=== PATIENT | female | born 1945 | race Caucasian/White ===

== ENCOUNTER 2021-12-17 09:07 | Outpatient (CLI) | payer MEDICARE, MEDICAID, SELFPAY ==
--- NOTE | ~2021-12-17 | NM_ITS ---
EXAMINATION: NM drew stress w perfusion DATE: 12/17/2021 11:22 INDICATION: Dyspnea on exertion. TECHNIQUE: Rest images were obtained following intravenous administration of 8.8 mCi Tc99m tetrofosmi n (Myoview). The patient was infused intravenously with Lexiscan (regadenoson). Then, 20.2 mCi Tc99m tetrofosmin (Myoview) was administered intravenously, and stress images were obtained. Data was recon structed into short axis and horizontal and vertical long axis SPECT images. Gated SPECT images were also obtained. COMPARISON: None. FINDINGS: There is no definite reversible or fixed perfusion abnormality to suggest ischemia or infar ction. There is no segmental wall motion abnormality. Left ventricular ejection fraction measures > 70%. IMPRESSION: 1. No definite ischemia or infarct. 2. Normal left ventricular ejection fraction measuring >70%. Reviewed, dictated and finalized at location A. [employer]
--- NOTE | 2021-12-17 09:12 | EST_ITS ---
Patient Info Name: Stefani Ferrara Age: 76 years : 1945 Gender: Female Ht: 65 in Wt: 200 lbs BSA: 2.07 m2 HR: 88 bpm BP: 180 / 95 mmHg Heart Rhythm: Sinus Rhythm Exam Date: 12/17/2021 10:16 AM Exam Location: [facility] Stress Patient Status: Outpatient Admit Date: 12/17/2021 Staff Ordering Physician: Rik Pradhan DO Attending Provider: Rik Pradhan DO Exercise Technologist: Deyanira Valente CT Exercise Physician: Rik Pradhan DO Exam Type: CA stress drew w NM Study Info Indications R06.09 - Other forms of dyspnea A regadenoson stress test was performed. Summary 1. 1. Negative lexiscan stress test for ischemic ST changes by ECG criteria. 2. 2. Baseline hypertension. 3. 3. Nuclear scan to follow and will be reported separately. Please correlate with it. 4. 4. Patient informed of the above results. Protocol: Lexiscan Stress ECG Details Stage: REST Duration (min): 1 min : 34 sec HR (bpm): 89 SBP (mmHg): 156 DBP (mmHg): 106 Stage: REST Duration (min): 9 min : 48 sec HR (bpm): 89 SBP (mmHg): 180 DBP (mmHg): 95 Stage: REST Duration (min): 13 min : 32 sec HR (bpm): 90 SBP (mmHg): 179 DBP (mmHg): 93 Stage: STAGE 1 Duration (min): 0 min : 59 sec HR (bpm): 110 SBP (mmHg): 179 DBP (mmHg): 93 Stage: RECOVERY Duration (min): 1 min : 0 sec HR (bpm): 111 SBP (mmHg): 179 DBP (mmHg): 93 Stage: RECOVERY Duration (min): 1 min : 25 sec HR (bpm): 113 SBP (mmHg): 192 DBP (mmHg): 108 Rest HR: 90 bpm Peak HR: 114 bpm Rest Sys BP: 179 mmHg Peak Sys BP: 192 mmHg Max Pred HR: 142 bpm % Max Pred HR: 80 % Target HR: 121 bpm Max RPP: 21,888 bpm*mmHg Termination Reason: Completed protocol Cardiac Symptoms: None Total Time: 1 min : 0 sec Rest White BP: 93 mmHg Peak White BP: 108 mmHg Total Dose: 0.4 mg Resting ECG Sinus rhythm, IVCD, delayed precordial R/S transition. Stress ECG No ST changes. Arrhythmias None. Report Signatures
== END 2021-12-17 09:08 | disposition home or self-care (01) ==
LOC: ANHCARD 09:08
PROVIDERS: PCP Nurse Practitioner Family; Visit Provider Internal Medicine Cardiovascular Disease
DX: R06.00 Dyspnea, unspecified (principal); I10 Essential (primary) hypertension
CPT/HCPCS: 78452; 93017; A9502; J2785

== ENCOUNTER 2022-12-05 11:47 | Outpatient (CLI) | payer MEDICARE, MEDICAID, SELFPAY ==
[2022-12-05 18:41] LABS: Basophils Percent Auto 0.4 % (0.2-1.2); Eosinophils Absolute Auto 0.2 K/mm3 (0-0.3); Eosinophils Percent Auto 1.7 % (0-4.4); Hematocrit 52.2 % (37.0-47.0); Hemoglobin 17.1 g/dL (12.0-15.0); Immature Granulocyte Absolute 0.02 K/mm3 (0.00-0.031); Immature Granulocyte Percent A 0.2 % (0-0.5); Lymphocytes Absolute Auto 1.87 K/mm3 (0.9-3.2); Lymphocytes Percent Auto 20.6 % (18.3-44.2); Mean Corpuscular HGB Conc 32.8 g/dl (32-36); Mean Corpuscular Hemoglobin 29.6 pg (26-34); Mean Corpuscular Volume 90.5 fl (80-100); Mean Platelet Volume 9.6 fl (7.4-10.4); Monocytes Absolute Auto 0.4 K/mm3 (0.1-0.6); Monocytes Percent Auto 4.7 % (2.6-8.5); Neutrophils Absolute Auto 6.6 K/mm3 (1.3-6.7); Neutrophils Percent Auto 72.4 % (45.5-73.1); Platelet Count Result 195 k/mm3 (150-375); Red Blood Count 5.77 M/mm3 (4.2-5.4); Red Cell Distribution Width 13.8 % (11.5-14.5); White Blood Count 9.1 K/mm3 (4.5-10.0)
[2022-12-05 19:46] LABS: Alanine Aminotransferase 28 U/L (6-35); Albumin Level 4.4 g/dL (3.5-5.1); Alkaline Phosphatase 117 U/L (38-126); Anion Gap 5 mmol/L (8-16); Aspartate Amino Transferase 27 U/L (14-36); Bilirubin,Total 1.6 mg/dL (0.2-1.3); Blood Urea Nitrogen 19 mg/dL (7-17); Calcium 10.1 mg/dL (8.4-10.2); Carbon Dioxide 30 mmol/L (22-30); Chloride 98 mmol/L (98-107); Cholesterol 158 mg/dL (0-200); Estimated Glomerular Filt Rate 48; Glucose 91 mg/dL (65-110); HDL Direct 45 mg/dL; Potassium 3.7 mmol/L (3.4-5.0); Sodium 133 mmol/L (137-145); Triglycerides 114 mg/dL (<150)
[2022-12-05 19:57] LABS: LDL Cholesterol Direct 73 mg/dL
[2022-12-05 21:56] LABS: Hemoglobin A1C 5.7 % (<5.7)
== END 2022-12-05 11:48 | disposition home or self-care (01) ==
LOC: ANHGOSHLAB 11:49
PROVIDERS: PCP Nurse Practitioner; Visit Provider Nurse Practitioner Family
DX: E78.5 Hyperlipidemia, unspecified (principal); I10 Essential (primary) hypertension; R73.03 Prediabetes; R53.83 Other fatigue
CPT/HCPCS: 36415; 80053; 80061; 83036; 84443; 85025

== ENCOUNTER 2022-12-20 12:31 | Outpatient (CLI) | payer MEDICARE, MEDICAID, SELFPAY ==
--- NOTE | ~2022-12-20 | CT_ITS ---
EXAMINATION: CT soft tissue neck w con DATE: 12/20/2022 13:14 INDICATION: Basal cell carcinoma of scalp and neck. TECHNIQUE: Computed tomography (CT) of the neck was performed with 75 mL Omnipaque-350 intravenous co ntrast. Automated exposure control and iterative reconstruction technique were employed. The dose-annette gth product was 396.09 mGy-cm. COMPARISON: Skull radiographs 03/10/2010, brain MRI 05/03/2018 FINDINGS: There are likely changes of left ocular lens replacement surgery. There is an implant anter ior to the right ocular globe that may be in the eyelid. There are changes of right posterior craniot junie. There are no pathologically enlarged lymph nodes. There is severe fatty atrophy of the tongue on the right. There is mild mucosal thickening in the ethmoid sinuses. The mastoid air cells are normal . There is severe cervical spondylosis. IMPRESSION: 1. No evidence of metastatic disease. Reviewed, dictated and finalized at location A. 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
--- NOTE | ~2022-12-20 | CT_ITS ---
EXAMINATION: CT brain wo/w con DATE: 12/20/2022 13:14 INDICATION: Basal cell carcinoma of scalp and neck TECHNIQUE: Computed tomography (CT) of the head was performed without and subsequently with 75 CC Omn ipaque 350 intravenous contrast. The mA was adjusted according to patient size. Iterative reconstruct ion technique was employed. Exam dose: 1210.66 mGy-cm total exam DLP. COMPARISON: 05/03/2018 MRI brain/brainstem FINDINGS: Bilateral carotid siphon internal carotid artery calcifications. Chronic right basal ganglia lacunar infarct. There is nonspecific diminished attenuation of the cereb ral white matter, likely due to chronic small vessel ischemic changes. There is cerebellar and central and cortical cerebral atrophy. No intracranial mass lesion or hemorrh age. No midline shift or mass effect. No subdural or epidural hematoma is detected. There is a probable surgical defect in the posterior right lateral occipital bone. No fracture or bone destruction of the cranial vault is noted. Included paranasal sinuses and the mastoid air cells are well aerated. There is considerable streak artifact from right orbital area; recommend clinical correlation. IMPRESSION: Surgical defect in the posterolateral right occipital bone Cerebral atherosclerosis and chronic small vessel ischemic changes of the cerebral white matter, relationship management lead julia right basal ganglia lacunar infarct Cerebellar and central and cortical cerebral atrophy Reviewed, dictated and finalized at Location A. Reviewed, dictated and finalized at location L. [employer] IMPRESSION: Surgical defect in the posterolateral right occipital bone Cerebral atherosclerosis and chronic small vessel ischemic changes of the cereb ral white matter, chronic right basal ganglia lacunar infarct Cerebellar and central and cortical cerebral atrophy
== END 2022-12-20 12:32 | disposition home or self-care (01) ==
LOC: ANHIMG 12:33
PROVIDERS: PCP Nurse Practitioner
DX: C44.41 Basal cell carcinoma of skin of scalp and neck (principal); I67.2 Cerebral atherosclerosis
CPT/HCPCS: 70470; 70491; Q9967

== ENCOUNTER 2023-01-18 13:25 | Outpatient (CLI) | payer MEDICARE, MEDICAID, SELFPAY ==
--- NOTE | ~2023-01-18 | CT_ITS ---
EXAMINATION: CT brain w con DATE: 01/18/2023 13:56 INDICATION: Basal cell carcinoma of the scalp. TECHNIQUE: Computed tomography (CT) of the head was performed with 100 mL Omnipaque 350 intravenous c ontrast. The mA was adjusted according to patient size. Iterative reconstruction technique was employ ed. The dose-length product was 605.33 mGy-cm. COMPARISON: Head CT 12/20/2022, brain MRI 05/03/2018 FINDINGS: There are scattered areas of low attenuation in the cerebral white matter. There is no intr acranial hemorrhage, acute infarction, or abnormal intracranial mass lesion. There is old lacunar inf arct in the right basal ganglia. There is a small old infarct in left parietal lobe. There is chronic encephalomalacia in lateral aspect of right cerebellum with overlying craniotomy. The ventricles are normal in size. There are likely changes of ocular lens replacement surgeries. There is a radiopaque foreign body anterior to the right ocular globe. There is skin thickening at the right superior scal p. IMPRESSION: 1. Skin thickening at the right superior scalp, which may be the patient's basal cell carcinoma. No s kull involvement. 2. Old infarcts in the right basal ganglia and left parietal lobe. 3. Chronic encephalomalacia in lateral right cerebellum. 4. Extensive nonspecific cerebral white matter disease, which likely represents chronic small vessel ischemic disease. Reviewed, dictated and finalized at location A. IMPRESSION: 1. Skin thickening at the right superior scalp, which may be the patient's basa l cell carcinoma. No skull involvement. 2. Old infarcts in the right basal ganglia and left parietal lobe. 3. Chronic encephalomalacia in lateral right cerebellum. 4. Extensive nonspecific cerebral white matter disease, which likely represents chronic small vessel ischemic disease.
[2023-01-18 13:47] LABS: Estimated Glomerular Filt Rate 48
== END 2023-01-18 13:26 | disposition home or self-care (01) ==
LOC: ANHIMG 13:25
PROVIDERS: PCP Nurse Practitioner; Visit Provider Otolaryngology
DX: C44.41 Basal cell carcinoma of skin of scalp and neck (principal); R93.0 Abnormal findings on diagnostic imaging of skull and head, not elsewhere classified
CPT/HCPCS: 70460; Q9967

== ENCOUNTER 2023-04-06 14:52 | Outpatient (CLI) | payer MEDICARE, MEDICAID, SELFPAY ==
[2023-04-06 15:19] LABS: Basophils Percent Auto 0.4 % (0.2-1.2); Eosinophils Absolute Auto 0.1 K/mm3 (0-0.3); Hemoglobin 17.1 g/dL (12.0-15.0); Immature Granulocyte Absolute 0.02 K/mm3 (0.00-0.031); Immature Granulocyte Percent A 0.2 % (0-0.5); Lymphocytes Absolute Auto 1.24 K/mm3 (0.9-3.2); Mean Corpuscular HGB Conc 32.9 g/dl (32-36); Mean Corpuscular Volume 88.3 fl (80-100); Monocytes Absolute Auto 0.5 K/mm3 (0.1-0.6); Monocytes Percent Auto 5.4 % (2.6-8.5); Neutrophils Absolute Auto 6.5 K/mm3 (1.3-6.7); Platelet Count Result 167 k/mm3 (150-375); Red Blood Count 5.89 M/mm3 (4.2-5.4); Red Cell Distribution Width 13.4 % (11.5-14.5); White Blood Count 8.3 K/mm3 (4.5-10.0)
[2023-04-06 16:25] LABS: Alanine Aminotransferase 22 U/L (6-35); Albumin Level 4.6 g/dL (3.5-5.1); Alkaline Phosphatase 144 U/L (38-126); Anion Gap 8 mmol/L (8-16); Aspartate Amino Transferase 23 U/L (14-36); Bilirubin,Total 1.8 mg/dL (0.2-1.3); Blood Urea Nitrogen 14 mg/dL (7-17); Carbon Dioxide 26 mmol/L (22-30); Chloride 105 mmol/L (98-107); Estimated Glomerular Filt Rate > 60; Glucose 113 mg/dL (65-110); Potassium 3.9 mmol/L (3.4-5.0); Sodium 139 mmol/L (137-145)
[2023-04-09 10:47] LABS: Erythropoietin (EPO) 10.5 mIU/mL (2.6-18.5)
== END 2023-04-06 14:53 | disposition home or self-care (01) ==
LOC: ANHLAB 14:54
PROVIDERS: PCP Family Medicine; Visit Provider Internal Medicine Hematology & Oncology
DX: D75.1 Secondary polycythemia (principal)
CPT/HCPCS: 36415; 80053; 82668; 85025

== ENCOUNTER 2023-07-14 11:46 | Outpatient (CLI) | payer MEDICARE, MEDICAID, SELFPAY ==
[2023-07-14 16:47] LABS: Basophils Percent Auto 0.5 % (0.2-1.2); Eosinophils Absolute Auto 0.1 K/mm3 (0-0.3); Eosinophils Percent Auto 1.7 % (0-4.4); Hematocrit 54.8 % (37.0-47.0); Hemoglobin 17.6 g/dL (12.0-15.0); Immature Granulocyte Absolute 0.01 K/mm3 (0.00-0.031); Immature Granulocyte Percent A 0.2 % (0-0.5); Lymphocytes Absolute Auto 1.31 K/mm3 (0.9-3.2); Lymphocytes Percent Auto 20.2 % (18.3-44.2); Mean Corpuscular HGB Conc 32.1 g/dl (32-36); Mean Corpuscular Hemoglobin 28.9 pg (26-34); Mean Platelet Volume 10.4 fl (7.4-10.4); Monocytes Absolute Auto 0.5 K/mm3 (0.1-0.6); Monocytes Percent Auto 6.9 % (2.6-8.5); Neutrophils Absolute Auto 4.6 K/mm3 (1.3-6.7); Neutrophils Percent Auto 70.5 % (45.5-73.1); Platelet Count Result 162 k/mm3 (150-375); Red Blood Count 6.09 M/mm3 (4.2-5.4); Red Cell Distribution Width 13.2 % (11.5-14.5); White Blood Count 6.5 K/mm3 (4.5-10.0)
[2023-07-14 20:05] LABS: Alanine Aminotransferase 26 U/L (6-35); Albumin Level 4.6 g/dL (3.5-5.1); Alkaline Phosphatase 128 U/L (38-126); Anion Gap 8 mmol/L (8-16); Aspartate Amino Transferase 30 U/L (14-36); Bilirubin,Total 1.2 mg/dL (0.2-1.3); Blood Urea Nitrogen 21 mg/dL (7-17); Calcium 10.2 mg/dL (8.4-10.2); Carbon Dioxide 26 mmol/L (22-30); Chloride 104 mmol/L (98-107); Creatine Kinase 39 U/L (30-135); Estimated Glomerular Filt Rate 60; Glucose 114 mg/dL (65-110); Magnesium 2.4 mg/dL (1.6-2.3); Potassium 3.9 mmol/L (3.4-5.0); Sodium 138 mmol/L (137-145)
== END 2023-07-14 11:47 | disposition home or self-care (01) ==
PROVIDERS: PCP Family Medicine; Visit Provider Nurse Practitioner Family
DX: M79.10 Myalgia, unspecified site (principal); I10 Essential (primary) hypertension; M79.669 Pain in unspecified lower leg
CPT/HCPCS: 36415; 80053; 82550; 83735; 85025

== ENCOUNTER 2024-04-23 12:32 | Outpatient (CLI) | payer MEDICARE, SELFPAY ==
[2024-04-23 19:28] LABS: Basophils Percent Auto 0.5 % (0.2-1.2); Eosinophils Absolute Auto 0.1 K/mm3 (0-0.3); Eosinophils Percent Auto 1.4 % (0-4.4); Hematocrit 54.3 % (37.0-47.0); Hemoglobin 17.7 g/dL (12.0-15.0); Immature Granulocyte Absolute 0.01 K/mm3 (0.00-0.031); Immature Granulocyte Percent A 0.1 % (0-0.5); Lymphocytes Absolute Auto 1.44 K/mm3 (0.9-3.2); Lymphocytes Percent Auto 19.5 % (18.3-44.2); Mean Corpuscular HGB Conc 32.6 g/dl (32-36); Mean Corpuscular Hemoglobin 29.3 pg (26-34); Mean Corpuscular Volume 89.8 fl (80-100); Mean Platelet Volume 10.3 fl (7.4-10.4); Monocytes Absolute Auto 0.5 K/mm3 (0.1-0.6); Monocytes Percent Auto 6.1 % (2.6-8.5); Neutrophils Absolute Auto 5.4 K/mm3 (1.3-6.7); Neutrophils Percent Auto 72.4 % (45.5-73.1); Platelet Count Result 164 k/mm3 (150-375); Red Blood Count 6.05 M/mm3 (4.2-5.4); Red Cell Distribution Width 13.9 % (11.5-14.5); White Blood Count 7.4 K/mm3 (4.5-10.0)
[2024-04-23 19:35] LABS: Alanine Aminotransferase 18 U/L (6-35); Albumin Level 4.5 g/dL (3.5-5.1); Alkaline Phosphatase 160 U/L (38-126); Anion Gap 9 mmol/L (4-12); Aspartate Amino Transferase 29 U/L (14-36); Bilirubin,Total 1.2 mg/dL (0.2-1.3); Blood Urea Nitrogen 14 mg/dL (7-17); Carbon Dioxide 30 mmol/L (22-30); Chloride 102 mmol/L (98-107); Creatine Kinase 44 U/L (30-135); Estimated Glomerular Filt Rate 60; Glucose 120 mg/dL (65-110); Sodium 141 mmol/L (137-145)
[2024-04-23 20:31] LABS: Erythrocyte Sedimentation Rate 15 mm/hr (0-20)
[2024-04-23 20:40] LABS: Folic Acid 3.2 ng/mL (2.76->20)
== END 2024-04-23 12:33 | disposition home or self-care (01) ==
PROVIDERS: PCP Internal Medicine; Visit Provider Internal Medicine
DX: D58.2 Other hemoglobinopathies (principal); I10 Essential (primary) hypertension; R26.81 Unsteadiness on feet; R26.89 Other abnormalities of gait and mobility; R73.03 Prediabetes; M62.81 Muscle weakness (generalized); M79.673 Pain in unspecified foot
CPT/HCPCS: 36415; 80053; 82550; 82607; 82746; 83036; 84443; 85025; 85652

== ENCOUNTER 2024-04-25 10:13 | Outpatient (NON) | payer MEDICARE, SELFPAY ==
[2024-04-25 20:22] LABS: Appearance Urine Turbid (Clear); Bacteria Urine 4+ /hpf; Bilirubin Urine Negative (Negative); Blood Urine Negative (Negative); Calcium Oxalate Crystals Urine Present /hpf; Color Urine Yellow (Yellow); Glucose Urine UA Negative (Negative); Ketones Urine Negative (Negative); Leukocyte Esterase Ur 3+ LEU/UL (Negative); Mucus Urine Present /lpf; Need Manual Microscopic Reviewed; Nitrate Urine Negative (Negative); Protein Urine Negative (Negative); RBC Urine 0-2 /hpf (0-2); Specific Grav Ur 1.012 (1.001-1.035); Squamous Epithelial Cell Urine Moderate /hpf (Few); Uric Acid Crystals Urine Present /hpf; pH Urine 8.5 (5.0-9.0)
[2024-04-25 20:23] LABS: Add Urine Microscopic? YES
== END 2024-04-25 10:14 | disposition home or self-care (01) ==
LOC: ANHGOSHLAB 10:15
PROVIDERS: PCP Internal Medicine; Visit Provider Internal Medicine
DX: R73.03 Prediabetes (principal); D58.2 Other hemoglobinopathies; R26.89 Other abnormalities of gait and mobility; I10 Essential (primary) hypertension; R26.81 Unsteadiness on feet
CPT/HCPCS: 81001

== ENCOUNTER 2024-09-18 14:14 | Observation (INO) | payer MEDICARE, SELFPAY ==
--- NOTE | ~2024-09-18 | CT_ITS ---
CT brain wo con Ordering provider: Princess Cohen PA-C History: 79 years Female with . falls, weakness . Comparison: January 18, 2023 Technique: CT of the head without contrast. Radiation reduction technique utilized. The dose-length p roduct was 681 mGy-cm. FINDINGS: BRAIN PARENCHYMA AND CSF SPACES: Mild leukoaraiosis and diffuse cortical atrophy. Mild atheromatous d isease. Ventricular dilatation. Small lacunar infarct in the right basal ganglia. Simple malacia in t he right cerebellar area No midline shift, mass effect or hemorrhage. The brain parenchyma and CSF s paces are otherwise normal. VISUALIZED PARANASAL SINUSES: Well aerated. MASTOIDS: Well aerated. BONES: Postoperative changes in the right occipital bone otherwise, The bones appear intact. Slight t hickening of the skull bones. SOFT TISSUES: Visualized nasopharynx is normal. Superficial soft tissues are normal. Metallic object is seen anterior to the right orbit. IMPRESSION: No acute intracranial findings. Reviewed, dictated and finalized at location A. [employer]
--- NOTE | ~2024-09-18 | CT_ITS ---
CT chest abdomen pelvis wo con Ordering provider: Princess Cohen PA-C History: . falls, L rib/abd pain . Comparison: None. Technique: CT chest without IV contrast. CT abdomen and pelvis without oral and IV contrast. Radiation reduction technique utilized. The dose-length product was 1383.52 mGy-cm. FINDINGS: The study is limited due to lack of IV contrast. CHEST: --VISUALIZED THORACIC INLET: Trace of pericardial effusion. Right Breast implant collapsed. --MEDIASTINUM: Aorta/coronary arteries: Mild atheromatous disease. Heart/other: The heart is slightly enlarged. Lymph nodes: No mediastinal or hilar adenopathy. --LUNGS: Focal density is seen in the left upper lobe measuring 1.8 x 1 cm which may be a nodule or f ocal pneumonia. Follow-up advised. C3 No pulmonary masses. No pneumothorax. Opacification the left lo wer lobe suggestive of atelectasis versus pneumonia with minimal pleural effusion. Underlying fibroti c changes. --MUSCULOSKELETAL: Soft tissues: The superficial soft tissues are normal. Bones: Age appropriate degenerative changes of the spine. ABDOMEN/PELVIS: --MUSCULOSKELETAL: Bones: Age appropriate degenerative changes of the spine. Superficial soft tissues: The superficial soft tissues are normal. --UPPER ABDOMINAL ORGANS: Liver: Hepatomegaly. Gallbladder: Cholelithiasis. Spleen: Normal. Stomach/duodenum: Small sliding hiatus hernia. Pancreas: Normal. Adrenals: Normal. Kidneys: Small hypodensity in the left kidney lower pole suggestive of a cyst. Small hypodensity in t he right kidney upper pole suggestive of a cyst. Ultrasound evaluation advised. --PELVIC ORGANS: The bladder is underfilled.. No bladder stones. --BOWEL AND MESENTERY: Colon: No evidence of diverticulitis.. No evidence of appendicitis. Small Bowel: Normal. No obstruction. Peritoneum/mesentery: No free air or free fluid. No mesenteric lymphadenopathy. Panniculitis is seen in the mid abdomen. --RETROPERITONEUM: Mild atheromatous disease of the abdominal aorta. No retroperitoneal lymphadenop athy. IMPRESSION: CHEST: 1. Cardiomegaly with pericardial effusion 2. Left basilar atelectasis versus pneumonia with minimal pleural effusion. 3. Focal density in the left upper lobe which may be a nodule or focal pneumonia. Follow-up advised. Three-month CT follow-up advised. ABDOMEN/PELVIS: 1. No evidence of appendicitis, colitis or intestinal obstruction. 2. Cholelithiasis. 3. Small sliding hiatus hernia. 4. Hepatomegaly Reviewed, dictated and finalized at location A. [employer] IMPRESSION: CHEST: 1. Cardiomegaly with pericardial effusion 2. Left basilar atelectasis versus pneumonia with minimal pleural effusion. 3. Focal density in the left upper lobe which may be a nodule or focal pneumon ia. Follow-up advised. Three-month CT follow-up advised. ABDOMEN/PELVIS: 1. No evidence of appendicitis, colitis or intestinal obstruction. 2. Cholelithiasis. 3. Small sliding hiatus hernia. 4. Hepatomegaly
[2024-09-18 14:19] VITALS: BP 171/70; PULSE 83; RESP 16; TEMP 36.5; O2SAT 97
--- NOTE | 2024-09-18 15:39 | ED_ITS ---
HPI - General Adult General Chief complaint: Weakness <Princess Cohen PA-C - Last Filed: 09/18/24 15:51> Stated complaint: weakness, flank pain <Princess Cohen PA-C - Last Filed: 09/18/24 15:51> Time Seen by Provider: 09/18/24 15:40 <Princess Cohen PA-C - Last Filed: 09/18/24 15:51> Focused HPI: Patient is an 79 y/o female who presents to the ED from home with report of weakness and fall. Patient lives at home alone. Reports she has been feeling increasingly weak over the past 1 week. Denies focal weakness. Reports lack of strength. Reports having pain in her L side/L sided ribs/abd over the past 1.5 weeks. Has been trying Tylenol and heating pad w/o improvement. Then had a fall in the bathroom today and prompted here for further evaluation. Denied HI/LOC. Son also reports patient has not eaten since Monday and expresses concern that patient may need NH/rehab placement. Son reports chronic R sided face droop/partial paralysis r/t previous brain tumor. GENERAL: Elderly, somewhat frail, and in no acute distress. HEAD: Normocephalic, atraumatic. CHEST: Clear to auscultation. ?No respiratory distress. HEART: Regular rate and rhythm.? MSK: TTP along posterior lateral L rib cage. NEURO: ?Alert and oriented x3. Patient screened in triage and initial orders placed.? ?Additional care and disposition to be based upon?diagnostic testing and treatment. <Princess Cohen PA-C - Last Filed: 09/18/24 15:51> Source: patient and family <Princess Cohen PA-C - Last Filed: 09/18/24 15:51> Mode of arrival: wheelchair <Princess Cohen PA-C - Last Filed: 09/18/24 15:51> Limitations: no limitations <Princess Cohen PA-C - Last Filed: 09/18/24 15:51> History of Present Illness HPI narrative: I agree with the HPI as documented in the medical screening exam <Francisco Martinez MD - Last Filed: 12/05/24 00:14> Related Data Home medications: Home Medications Medication Instructions Recorded Confirmed aspirin 81 mg tablet 81 mg PO DAILY 07/14/23 07/01/24 <ROSEANN Hammonds Last Filed: 09/18/24 15:51> Allergies/adverse reactions: Allergies Allergy/AdvReac Type Severity Reaction Status Date / Time vancomycin Allergy Severe pt turned Verified 08/26/24 14:59 purple on the operating table <ROSEANN Hammonds Last Filed: 09/18/24 15:51> Review of Systems Review of Systems: All systems reviewed & are unremarkable except as noted in HPI and below <Francisco Martinez MD - Last Filed: 09/19/24 00:14> [facility] Past Medical History Medical History: Medical History Bilateral lower extremity edema Cataract Essential (primary) hypertension Fatigue First degree heart block (~09/2021) Heavy sensation of lower extremity History of right breast cancer (~2013) Hyperlipidemia Muscle pain Prediabetes Stress incontinence <Princess Cohen PA-C - Last Filed: 09/18/24 15:51> Surgical History Surgical History: Surgical History History of appendectomy History of cataract removal with insertion of prosthetic lens (~03/2014) History of mastectomy right History of tonsillectomy Hx of craniotomy (~04/1999) 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 <Princess Cohen PA-C - Last Filed: 09/18/24 15:51> Family History Family History: Family History Other Family history of heart disease in male family member before age 55 <ROSEANN Hammonds Last Filed: 09/18/24 15:51> Social History Social History: Social History Social History: Caffeine-tea/soda Smoking status: Never smoker Second hand tobacco smoke exposure: No Alcohol intake: never Substance use: never Substance use type: does not use Do You Feel Safe in your Home?: Yes Lack of Transportation: YES Lack of Food: Often True Current Housing: I Have Housing Concerned About Future Housing: No Difficulty Paying Gas/Electric Bills: YES Difficulty Paying for Meds: No Currently Unemployed: No Education: High School Diploma/GED Difficulty w/ Childcare or Family Care: No Spiritual care concerns: No <Princess Cohen PA-C - Last Filed: 09/18/24 15:51> Exam Narrative: (I agree with the exam is documented in the medical screening exam with the following additions) GENERAL: Well-developed, well-nourished, and in no acute distress. HEAD: Normocephalic, atraumatic. EYES: PERRLA and EOMI. NECK: Supple. No midline spine tenderness to palpation, step-off or crepitus CHEST: Clear to auscultation. No respiratory distress. No wheezes rales or rhonchi. Tender to palpation in the left mid axillary line without step-off or crepitus HEART: Regular rate and rhythm. No murmur heard. Normal peripheral pulses. ABDOMEN: Soft, nontender, nondistended, normal active bowel sounds. EXTREMITIES: Normal range of motion. No edema. SKIN: Warm, dry, no rash. NEURO: Alert and oriented x3. No focal deficit. Moving all 4 limbs spontaneously PSYCH: Normal mood and affect. <Francisco Martinez MD - Last Filed: 09/19/24 00:14> Course Course Emergency Course: 19:23 - CBC demonstrates white blood cell count elevation of 14.0 with hemoglobin of 16 and normal platelets. Chemistries demonstrate hypercalcemia hypermagnesemia but is otherwise unremarkable including a normal creatinine. Troponin negative. CT chest abdomen pelvis demonstrates Focal density in the left upper lobe which may be a nodule or focal pneumonia with mild left pleural effusion. Head CT negative for acute intracranial process. EKG not concerning for ischemia. I suspect Pneumonia is the cause of the patient's symptoms. Will start the patient on Rocephin and doxycycline. I discussed the patient with hospitalist, GIAN Borrero who accepts admission. <Francisco Mratinez MD - Last Filed: 09/19/24 00:14> Vital Signs Vital signs: Vital Signs Temperature 97.7 F 09/18/24 14:19 Pulse Rate 83 09/18/24 14:19 Respiratory Rate 16 09/18/24 14:19 Blood Pressure 171/70 H 09/18/24 14:19 Pulse Oximetry 97 09/18/24 14:19 Temperature 97.8 F 09/18/24 21:35 Pulse Rate 89 09/18/24 21:35 Respiratory Rate 18 09/18/24 21:35 Blood Pressure 149/62 H 09/18/24 21:35 Pulse Oximetry 96 09/18/24 21:35 <Princess Cohen PA-C - Last Filed: 09/18/24 15:51> Vital Signs Temperature 97.7 F 09/18/24 14:19 Pulse Rate 83 09/18/24 14:19 Respiratory Rate 16 09/18/24 14:19 Blood Pressure 171/70 H 09/18/24 14:19 Pulse Oximetry 97 09/18/24 14:19 Temperature 97.8 F 09/18/24 21:35 Pulse Rate 89 09/18/24 21:35 Respiratory Rate 18 09/18/24 21:35 Blood Pressure 149/62 H 09/18/24 21:35 Pulse Oximetry 96 09/18/24 21:35 <Francisco Martinez MD - Last Filed: 09/19/24 00:14> Medical Decision Making MDM Narrative Medical decision making narrative: MSE by ROZ in triage. <Princess Cohen PA-C - Last Filed: 09/18/24 15:51> MSE by ROZ in triage. Plan: Imaging, labs, EKG, troponin, reassess <Francisco Martinez MD - Last Filed: 09/19/24 00:14> Differential Diagnosis Differential Diagnosis: pneumonia, pneumothorax, ACS, metabolic abnormality, UTI, intracranial hemorrhage, other <Francisco Martinez MD - Last Filed: 09/19/24 00:14> Vital Signs Vital Signs: Vital Signs Temperature 97.7 F 09/18/24 14:19 Pulse Rate 83 09/18/24 14:19 Respiratory Rate 16 09/18/24 14:19 Blood Pressure 171/70 H 09/18/24 14:19 Pulse Oximetry 97 09/18/24 14:19 Temperature 97.8 F 09/18/24 21:35 Pulse Rate 89 09/18/24 21:35 Respiratory Rate 18 09/18/24 21:35 Blood Pressure 149/62 H 09/18/24 21:35 Pulse Oximetry 96 09/18/24 21:35 <Princess Cohen PA-C - Last Filed: 09/18/24 15:51> Vital Signs Temperature 97.7 F 09/18/24 14:19 Pulse Rate 83 09/18/24 14:19 Respiratory Rate 16 09/18/24 14:19 Blood Pressure 171/70 H 09/18/24 14:19 Pulse Oximetry 97 09/18/24 14:19 Temperature 97.8 F 09/18/24 21:35 Pulse Rate 89 09/18/24 21:35 Respiratory Rate 18 09/18/24 21:35 Blood Pressure 149/62 H 09/18/24 21:35 Pulse Oximetry 96 09/18/24 21:35 <Francisco Martinez MD - Last Filed: 09/19/24 00:14> Lab Data Result diagrams: 09/18/24 15:56 09/18/24 15:56 <Princess Cohen PA-C - Last Filed: 09/18/24 15:51> Labs: Lab Results 09/18/24 Range/Units 15:56 WBC 14.0 H (4.5-10.0) K/mm3 RBC 5.72 H (4.2-5.4) M/mm3 Hgb 16.4 H (12.0-15.0) g/dL Hct 51.4 H (37.0-47.0) % MCV 89.9 (80-100) fl MCH 28.7 (26-34) pg MCHC 31.9 L (32-36) g/dl RDW 14.2 (11.5-14.5) % Plt Count 220 (150-375) k/mm3 MPV 8.9 (7.4-10.4) fl Immature Gran % (Auto) 0.3 (0-0.5) % Neut % (Auto) 88.6 H (45.5-73.1) % Lymph % (Auto) 5.1 L (18.3-44.2) % [place] % (Auto) 5.5 (2.6-8.5) % Eos % (Auto) 0.4 (0-4.4) % Baso % (Auto) 0.1 L (0.2-1.2) % Lymph # (Auto) 0.71 L (0.9-3.2) K/mm3 [place] # (Auto) 0.8 H (0.1-0.6) K/mm3 Eos # (Auto) 0.1 (0-0.3) K/mm3 Baso # (Auto) 0.0 (0.0-0.1) K/mm3 Abs Immat Gran (auto) 0.04 H (0.00-0.031) K/mm3 Absolute Neuts (auto) 12.4 H (1.3-6.7) K/mm3 Absolute Nucleated RBC 0.000 (0.0-0.012) K/mm3 Nucleated RBC % 0.0 (0.0-0.2) % PT 16.3 H (11.1-14.7) Seconds INR 1.3 APTT 33.3 (22.3-36.8) Seconds Sodium 137 (137-145) mmol/L Potassium 4.0 (3.4-5.0) mmol/L Chloride 99 (98-107) mmol/L Carbon Dioxide 32 H (22-30) mmol/L Anion Gap 6 (4-12) mmol/L BUN 27 H D (7-17) mg/dL Creatinine 1.00 (0.7-1.0) mg/dL Estim Creat Clear Calc Not Reportable Estimated GFR 53 L (59 - ) Glucose 128 H (65-110) mg/dL Calcium 10.5 H (8.4-10.2) mg/dL Magnesium 2.5 H (1.6-2.3) mg/dL Total Bilirubin 1.3 (0.2-1.3) mg/dL AST 31 (14-36) U/L ALT 29 (6-35) U/L Alkaline Phosphatase 196 H (38-126) U/L Total Creatine Kinase 48 (30-135) U/L Troponin I < 0.012 (0.000-0.034) ng/mL Total Protein 8.0 (6.3-8.2) g/dL Albumin 4.1 (3.5-5.1) g/dL <ADI HammondsC - Last Filed: 09/18/24 15:51> Lab Results 09/18/24 Range/Units 15:56 WBC 14.0 H (4.5-10.0) K/mm3 RBC 5.72 H (4.2-5.4) M/mm3 Hgb 16.4 H (12.0-15.0) g/dL Hct 51.4 H (37.0-47.0) % MCV 89.9 (80-100) fl MCH 28.7 (26-34) pg MCHC 31.9 L (32-36) g/dl RDW 14.2 (11.5-14.5) % Plt Count 220 (150-375) k/mm3 MPV 8.9 (7.4-10.4) fl Immature Gran % (Auto) 0.3 (0-0.5) % Neut % (Auto) 88.6 H (45.5-73.1) % Lymph % (Auto) 5.1 L (18.3-44.2) % [place] % (Auto) 5.5 (2.6-8.5) % Eos % (Auto) 0.4 (0-4.4) % Baso % (Auto) 0.1 L (0.2-1.2) % Lymph # (Auto) 0.71 L (0.9-3.2) K/mm3 [place] # (Auto) 0.8 H (0.1-0.6) K/mm3 Eos # (Auto) 0.1 (0-0.3) K/mm3 Baso # (Auto) 0.0 (0.0-0.1) K/mm3 Abs Immat Gran (auto) 0.04 H (0.00-0.031) K/mm3 Absolute Neuts (auto) 12.4 H (1.3-6.7) K/mm3 Absolute Nucleated RBC 0.000 (0.0-0.012) K/mm3 Nucleated RBC % 0.0 (0.0-0.2) % PT 16.3 H (11.1-14.7) Seconds INR 1.3 APTT 33.3 (22.3-36.8) Seconds Sodium 137 (137-145) mmol/L Potassium 4.0 (3.4-5.0) mmol/L Chloride 99 (98-107) mmol/L Carbon Dioxide 32 H (22-30) mmol/L Anion Gap 6 (4-12) mmol/L BUN 27 H D (7-17) mg/dL Creatinine 1.00 (0.7-1.0) mg/dL Estim Creat Clear Calc Not Reportable Estimated GFR 53 L (59 - ) Glucose 128 H (65-110) mg/dL Calcium 10.5 H (8.4-10.2) mg/dL Magnesium 2.5 H (1.6-2.3) mg/dL Total Bilirubin 1.3 (0.2-1.3) mg/dL AST 31 (14-36) U/L ALT 29 (6-35) U/L Alkaline Phosphatase 196 H (38-126) U/L Total Creatine Kinase 48 (30-135) U/L Troponin I < 0.012 (0.000-0.034) ng/mL Total Protein 8.0 (6.3-8.2) g/dL Albumin 4.1 (3.5-5.1) g/dL <Francisco Martinez MD - Last Filed: 09/19/24 00:14> ECG Data EKG #1: Attestation: I personally reviewed and interpreted this ECG as follows: <Francisco Martinez MD - Last Filed: 09/19/24 00:14> ECG completion date: 09/18/24 <Francisco Martinez MD - Last Filed: 09/19/24 00:14> ECG completion time: 16:19 <Francisco Martinez MD - Last Filed: 09/19/24 00:14> Prior ECG tracings: available for review <Francisco Martinez MD - Last Filed: 09/19/24 00:14> Interpretation: sinus rhythm, rate 72, left axis deviation, no ST segment elevations or T-wave inversions concerning for ischemia, normal intervals with QTC of 445. Compared to EKG done in 2020, PVCs have resolved <Francisco Martinez MD - Last Filed: 09/19/24 00:14> Discharge Plan Discharge Clinical Impression: Chest wall tenderness, Generalized weakness Pneumonia Qualifiers: Pneumonia type: due to unspecified organism Laterality: left Lung location: upper lobe of lung Qualified Code(s): J18.9 - Pneumonia, unspecified organism <Princess Cohen PA-C - Last Filed: 09/18/24 15:51> Patient Disposition: Still a Patient <Princess Cohen PA-C - Last Filed: 09/18/24 15:51> Condition: Stable <Princess Cohen PA-C - Last Filed: 09/18/24 15:51> Time of Disposition: 19:23 <Princess Cohen PA-C - Last Filed: 09/18/24 15:51> 19:23 <Francisco Martinez MD - Last Filed: 09/19/24 00:14>
--- NOTE | 2024-09-18 15:42 | ECG_ITS ---
Test Date: 2024-09-18 16:19:28 Measurements Intervals Mart Rate: 72 P: 38 RI: 192 QRS: -32 QRSD: 116 T: 52 QT: 404 QTc: 445 Interpretive Statements SINUS RHYTHM MARKED LEFT AXIS DEVIATION [QRS AXIS < -30] PATTERN CONSISTENT WITH PULMONARY DISEASE MODERATE INTRAVENTRICULAR CONDUCTION DELAY [105+ ms QRS DURATION, 80+ ms Q/S IN V1/V2, NO Q AND 60+ ms R IN I/aVL/V5/V6] CANNOT RULE OUT ANTERIOR INFARCTION ABNORMAL ECG Electronically Signed On 09-18-2024 16:45:31 FIN[employer]CIAL SALES MANAGER by Héctor Rankin M.D.
[2024-09-18 16:17] LABS: Basophils Percent Auto 0.1 % (0.2-1.2); Eosinophils Absolute Auto 0.1 K/mm3 (0-0.3); Eosinophils Percent Auto 0.4 % (0-4.4); Hematocrit 51.4 % (37.0-47.0); Hemoglobin 16.4 g/dL (12.0-15.0); Immature Granulocyte Absolute 0.04 K/mm3 (0.00-0.031); Immature Granulocyte Percent A 0.3 % (0-0.5); Lymphocytes Absolute Auto 0.71 K/mm3 (0.9-3.2); Lymphocytes Percent Auto 5.1 % (18.3-44.2); Mean Corpuscular HGB Conc 31.9 g/dl (32-36); Mean Corpuscular Hemoglobin 28.7 pg (26-34); Mean Corpuscular Volume 89.9 fl (80-100); Mean Platelet Volume 8.9 fl (7.4-10.4); Monocytes Absolute Auto 0.8 K/mm3 (0.1-0.6); Monocytes Percent Auto 5.5 % (2.6-8.5); Neutrophils Absolute Auto 12.4 K/mm3 (1.3-6.7); Neutrophils Percent Auto 88.6 % (45.5-73.1); Platelet Count Result 220 k/mm3 (150-375); Red Blood Count 5.72 M/mm3 (4.2-5.4); Red Cell Distribution Width 14.2 % (11.5-14.5)
[2024-09-18 16:27] LABS: INR 1.3; Prothrombin Time 16.3 Seconds (11.1-14.7)
[2024-09-18 16:28] LABS: Alanine Aminotransferase 29 U/L (6-35); Albumin Level 4.1 g/dL (3.5-5.1); Alkaline Phosphatase 196 U/L (38-126); Anion Gap 6 mmol/L (4-12); Aspartate Amino Transferase 31 U/L (14-36); Bilirubin,Total 1.3 mg/dL (0.2-1.3); Blood Urea Nitrogen 27 mg/dL (7-17); Calcium 10.5 mg/dL (8.4-10.2); Carbon Dioxide 32 mmol/L (22-30); Chloride 99 mmol/L (98-107); Creatine Kinase 48 U/L (30-135); Estimated Glomerular Filt Rate 53; Glucose 128 mg/dL (65-110); Magnesium 2.5 mg/dL (1.6-2.3); Partial Thromboplastin Time 33.3 Seconds (22.3-36.8); Sodium 137 mmol/L (137-145)
[2024-09-18 16:41] LABS: Troponin I < 0.012 ng/mL (0.000-0.034)
[2024-09-18 18:00] VITALS: BP 190/83; PULSE 80; RESP 20; O2SAT 100
--- NOTE | 2024-09-18 18:48 | PC.NURSE ---
per Dr Martinez, no blood cultures needed drawn prior to antibiotics.
[2024-09-18] MEDS: DOXYCYCLINE HYCLATE 100 MG TABLET PO (18:55)
[2024-09-18 19:00] VITALS: BP 160/69; PULSE 83; RESP 22; O2SAT 97
[2024-09-18 19:30] VITALS: BP 148/53; PULSE 84; RESP 24; O2SAT 97
--- NOTE | 2024-09-18 19:50 | PC.NURSE ---
This RN attempted to get blood cultures without success. Patient only able to use left arm due to limb restriction on the right side.
--- NOTE | 2024-09-18 19:53 | PM.IMHP ---
H&P: HPI History of Present Illness Date/Time: 09/18/24 19:53 Chief Complaint: Weakness, unable to stand/ambulate, pneumonia Narrative: This is an 79-year-old female patient with history of hypertension, hyperlipidemia, prediabetes and previously resected brain tumor who was admitted to the hospital for generalized weakness as well as left-sided pain that starts in her chest and radiates down to her waist all on the left side. Patient reports that she has not had anything to eat or drink since Monday because she was unable to get of her chair. When she was finally able to get up she ended up falling and had to call her son who called EMS to bring her to the hospital. Patient denies abdominal pain nausea or vomiting. Workup in the emergency department revealed white blood cell count of 14 an increase in her BUN to 27 creatinine of 1.0 and elevated calcium at 10.5 and elevated magnesium at 2.5. Troponin was normal. Head CT showed old small lacunar infarct in the right basal ganglia and encephalomalacia in the right cerebellar area as well as postoperative changes the right occipital bone from tumor resection in 1990. CT scan of the chest abdomen and pelvis without IV contrast shows a nodule or focal pneumonia in the left upper lobe measuring 1.8 x 1 cm, 0 paced occasion of the left lower lobe suggestive of atelectasis versus pneumonia with minimal pleural effusion, cardiomegaly with pericardial effusion, cholelithiasis, small sliding hiatal hernia and hepatomegaly. Patient was started on IV ceftriaxone and oral doxycycline for treatment of pneumonia. Patient is not hypoxic but she is having pain control issues and inability to stand and ambulate independently. PT and OT will be consulted. UA unable to be collected prior to antibiotics. Review of Systems Review of Systems: All systems reviewed & are unremarkable except as noted in HPI and below [facility] Past Medical History Medical History Bilateral lower extremity edema Cataract Essential (primary) hypertension Fatigue First degree heart block (~09/2021) Heavy sensation of lower extremity History of right breast cancer (~2013) Hyperlipidemia Muscle pain Prediabetes Stress incontinence Surgical History Surgical History History of appendectomy History of cataract removal with insertion of prosthetic lens (~03/2014) History of mastectomy right History of tonsillectomy Hx of craniotomy (~04/1999) 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 Family History Family History Other Family history of heart disease in male family member before age 55 Social History Social History Social History: Caffeine-tea/soda Smoking status: Never smoker Second hand tobacco smoke exposure: No Alcohol intake: never Substance use: never Substance use type: does not use Do You Feel Safe in your Home?: Yes Lack of Transportation: YES Lack of Food: Often True Current Housing: I Have Housing Concerned About Future Housing: No Difficulty Paying Gas/Electric Bills: YES Difficulty Paying for Meds: No Currently Unemployed: No Education: High School Diploma/GED Difficulty w/ Childcare or Family Care: No Spiritual care concerns: No Meds Home Medications and Allergies Home Medications Medication Instructions Recorded Confirmed Type losartan 100 1 tablet PO DAILY #90 tabs 12/12/22 07/01/24 Rx mg-hydrochlorothiazide 12.5 mg tablet aspirin 81 mg tablet 81 mg PO DAILY 07/14/23 07/01/24 History hydrochlorothiazide 12.5 mg tablet 12.5 mg PO DAILY #30 tabs 07/01/24 09/18/24 Rx nebivolol 2.5 mg tablet (Bystolic) 2.5 mg PO DAILY #30 tabs 07/30/24 09/18/24 Rx Allergies Allergy/AdvReac Type Severity Reaction Status Date / Time vancomycin Allergy Severe pt turned Verified 08/26/24 14:59 purple on the operating table Vital Signs Vital Signs - 24 hr 09/18/24 14:19 09/18/24 18:00 Temperature 36.5 C Pulse Rate 83 80 Respiratory Rate 16 20 Blood Pressure 171/70 H 190/83 H Pulse Oximetry 97 100 Exam Narrative: GENERAL: Appears slightly older than stated age, obese, deconditioned HEAD: Normocephalic, atraumatic. EYES: PERRLA and EOMI. NECK: Supple. No midline spine tenderness to palpation, step-off or crepitus CHEST: Lungs diminished in the left base both anteriorly and posteriorly. Tender to palpation in the left mid axillary line HEART: Regular rate and rhythm. No murmur heard. Normal peripheral pulses. ABDOMEN: Soft, nontender, nondistended, normal active bowel sounds. EXTREMITIES: Normal range of motion. No edema. SKIN: Warm, dry, no rash. NEURO: Alert and oriented x3. No focal deficit. Moving all 4 limbs spontaneously, generally weak lower extremities PSYCH: Normal mood and affect. H&P: Results Labs Labs: Short CBC 09/18/24 Range/Units 15:56 WBC 14.0 H (4.5-10.0) K/mm3 Hgb 16.4 H (12.0-15.0) g/dL Hct 51.4 H (37.0-47.0) % Plt Count 220 (150-375) k/mm3 BMP 09/18/24 15:56 Sodium 137 Potassium 4.0 Chloride 99 Carbon Dioxide 32 H BUN 27 H D Creatinine 1.00 Glucose 128 H Calcium 10.5 H Cardiac Enzymes 09/18/24 Range/Units 15:56 Total Creatine Kinase 48 (30-135) U/L Troponin I < 0.012 (0.000-0.034) ng/mL Liver Function 09/18/24 Range/Units 15:56 Total Bilirubin 1.3 (0.2-1.3) mg/dL AST 31 (14-36) U/L ALT 29 (6-35) U/L Alkaline Phosphatase 196 H (38-126) U/L Albumin 4.1 (3.5-5.1) g/dL Pulse Oximetry SpO2 results: 96% on room air Interpretation: No need for supplemental oxygenation at this time ECG Attestation: I personally reviewed and interpreted this ECG as follows: ECG completion date: 09/18/24 ECG completion time: 16:19 Prior ECG tracings: not available for review Interpretation: Sinus rhythm rate of 72 MS interval 192 QRS duration 116 QTC 445 QRS axis -32 left axis deviation, ST elevation of lead V3 only Imaging CT scan - head: Radiologist's impression: CT brain wo con Ordering provider: Princess Cohen PA-C History: 79 years Female with . falls, weakness . Comparison: January 18, 2023 Technique: CT of the head without contrast. Radiation reduction technique utilized. The dose-length product was 681 mGy-cm. FINDINGS: BRAIN PARENCHYMA AND CSF SPACES: Mild leukoaraiosis and diffuse cortical atrophy. Mild atheromatous disease. Ventricular dilatation. Small lacunar infarct in the right basal ganglia. Simple malacia in the right cerebellar area No midline shift, mass effect or hemorrhage. The brain parenchyma and CSF spaces are otherwise normal. VISUALIZED PARANASAL SINUSES: Well aerated. MASTOIDS: Well aerated. BONES: Postoperative changes in the right occipital bone otherwise, The bones appear intact. Slight thickening of the skull bones. SOFT TISSUES: Visualized nasopharynx is normal. Superficial soft tissues are normal. Metallic object is seen anterior to the right orbit. IMPRESSION: No acute intracranial findings. Reviewed, dictated and finalized at location A. [employer] CT scan - chest: Radiologist's impression: CT chest abdomen pelvis wo con Ordering provider: Princess Cohen PA-C History: . falls, L rib/abd pain . Comparison: None. Technique: CT chest without IV contrast. CT abdomen and pelvis without oral and IV contrast. Radiation reduction technique utilized. The dose-length product was 1383.52 mGy-cm. FINDINGS: The study is limited due to lack of IV contrast. CHEST: --VISUALIZED THORACIC INLET: Trace of pericardial effusion. Right Breast implant collapsed. --MEDIASTINUM: Aorta/coronary arteries: Mild atheromatous disease. Heart/other: The heart is slightly enlarged. Lymph nodes: No mediastinal or hilar adenopathy. --LUNGS: Focal density is seen in the left upper lobe measuring 1.8 x 1 cm which may be a nodule or focal pneumonia. Follow-up advised. C3 No pulmonary masses. No pneumothorax. Opacification the left lower lobe suggestive of atelectasis versus pneumonia with minimal pleural effusion. Underlying fibrotic changes. --MUSCULOSKELETAL: Soft tissues: The superficial soft tissues are normal. Bones: Age appropriate degenerative changes of the spine. ABDOMEN/PELVIS: --MUSCULOSKELETAL: Bones: Age appropriate degenerative changes of the spine. Superficial soft tissues: The superficial soft tissues are normal. --UPPER ABDOMINAL ORGANS: Liver: Hepatomegaly. Gallbladder: Cholelithiasis. Spleen: Normal. Stomach/duodenum: Small sliding hiatus hernia. Pancreas: Normal. Adrenals: Normal. Kidneys: Small hypodensity in the left kidney lower pole suggestive of a cyst. Small hypodensity in the right kidney upper pole suggestive of a cyst. Ultrasound evaluation advised. --PELVIC ORGANS: The bladder is underfilled.. No bladder stones. --BOWEL AND MESENTERY: Colon: No evidence of diverticulitis.. No evidence of appendicitis. Small Bowel: Normal. No obstruction. Peritoneum/mesentery: No free air or free fluid. No mesenteric lymphadenopathy. Panniculitis is seen in the mid abdomen. --RETROPERITONEUM: Mild atheromatous disease of the abdominal aorta. No retroperitoneal lymphadenopathy. IMPRESSION: CHEST: 1. Cardiomegaly with pericardial effusion 2. Left basilar atelectasis versus pneumonia with minimal pleural effusion. 3. Focal density in the left upper lobe which may be a nodule or focal pneumonia. Follow-up advised. Three-month CT follow-up advised. ABDOMEN/PELVIS: 1. No evidence of appendicitis, colitis or intestinal obstruction. 2. Cholelithiasis. 3. Small sliding hiatus hernia. 4. Hepatomegaly Reviewed, dictated and finalized at location A. [employer] Assessment and Plan Assessment and plan (1) Pneumonia: Qualifiers: Laterality: left Lung location: upper lobe of lung Pneumonia type: due to unspecified organism Qualified Code(s): J18.9 - Pneumonia, unspecified organism Code(s): J18.9 - Pneumonia, unspecified organism Status: Acute Assessment and Plan: -LLL pneumonia as well as focal pneumonia or nodule in left upper lobe--repeat CT in 3 months recommended -Rocephin and doxycycline started in ER -MRSA PCR ordered, Pneumococcal Ag and Legionella Ag ordered -Incentive spirometer and Q6HR Duonebs, encourage cough and deep breathing -Left sided chest/mid axillary pain most likely due to pneumonia (2) Deficit in activities of daily living (ADL): Code(s): Z78.9 - Other specified health status Status: Acute Assessment and Plan: -Patient unable to stand up from chair for 3 days then fell when she was able to get up -History of unsteady gait, likely from remote history of brain tumor removal in 1990 -Deconditioning due to acute illness likely exacerbating condition -PT/OT consulted, patient will likely need SNF vs senior living care (3) Generalized weakness: Code(s): R53.1 - Weakness Status: Acute Assessment and Plan: See above (4) Prediabetes: Code(s): R73.03 - Prediabetes Status: Acute Assessment and Plan: -Hemoglobin A1c 6.1 on admit, was 6.0 in April -Heart Healthy diet, watch daily sugar on metabolic panels (5) Essential (primary) hypertension: Code(s): I10 - Essential (primary) hypertension Status: Chronic Assessment and Plan: -Blood pressure elevated in ER, improved after arrival to the floor -Continue home nebivolol and HCTZ -Echo ordered due to pleural and pericardial effusions noted on imaging, last Echo on file from 2018 -May need goal directed therapy change if EF <40% on Echo. Quality VTE Prophylaxis VTE prophylaxis: pharmacologic ordered (Lovenox) Hospitalist [facility] Advance Care Plan I have confirmed that the patient's Advanced Care Plan is present, code status is documented, or surrogate decision maker is listed in patient medical record.: Yes Medication Reconciliation I have utilized all available resources to obtain, update and review the patients current medications (includes all prescriptions, OTC, herbals, cannabis, and nutritional supplements).: Yes
--- NOTE | 2024-09-18 20:21 | PC.NURSE ---
Phlebotomy at bedside for blood cultures.
[2024-09-18 21:35] VITALS: BP 149/62; PULSE 89; RESP 18; TEMP 36.6; O2SAT 96; BMI 33.0
--- NOTE | 2024-09-18 22:10 | ADMGEN ---
This patient, Stefani Ferrara, was admitted to Medical Room 251-01. Patient/family oriented to hospital policies and general routines including ID bracelet, bed and alarms, visiting hours, pain management, procedures, bathroom and other care routines, personal items, smoking policy, room service/diet, and visiting hours. Information on how to activate the Rapid Response Team has been discussed. Patient/Family are encouraged to report perceived risks to care and to ask questions if they do not understand what they are told or what they should do.
--- NOTE | 2024-09-18 22:10 | PC.NURSE ---
Patient arrived to 2 Medical surgical, vital signs stable. Instructed about fall risk, how to use call light, how to call for help.
[2024-09-19] VITALS (9 sets, daily range): BP systolic 121–171; BP diastolic 57–94; PULSE 80–94; RESP 18–20; TEMP 36.4–36.9; O2SAT 93–100
--- NOTE | 2024-09-19 | ECHO_ITS ---
Patient Info Name: Stefani Ferrara Age: 79 years : 1945 Gender: Female Ht: 65 in Wt: 198 lbs BSA: 2.06 m2 HR: 81 bpm BP: 171 / 72 mmHg Technical Quality: Fair Exam Date: 09/19/2024 11:35 AM Exam Location: Echo Lab Patient Status: Inpatient Admit Date: 09/19/2024 Staff Ordering Physician: Adair Villarreal APRN Wine Steward: Tristen Cook RDCS Attending Provider: Troy Springer MD Referring Physician: Phil ZUÑIGA; Exam Type: CA echo doppler color flow Study Info Indications J90 - Pleural effusion, not elsewhere classified R53.1 - Weakness Complete two-dimensional, color flow and Doppler transthoracic echocardiogram is performed. Summary 1. Complete two-dimensional, color flow and Doppler transthoracic echocardiogram is performed. 2. Left ventricular chamber dimension is normal. 3. Left ventricular systolic function is normal, estimated at 55-60%. 4. The left ventricular diastolic function is grade I diastolic dysfunction. 5. E/e' 15 is elevated. 6. Left atrial chamber dimension is mildly enlarged. 7. There is moderate aortic valve sclerosis. 8. There is mild aortic valve stenosis with a peak velocity of 155 cm/s, mean gradient of 5 mmHg, and aortic valve area of 1.9 cm2. 9. The mitral valve has moderately calcified annulus. 10. There is trace mitral valve regurgitation. 11. No pulmonary hypertension, estimated pulmonary arterial systolic pressure is 28 mmHg. Left Ventricle E/e' 15 is elevated. Left ventricular chamber dimension is normal. Left ventricular systolic function is normal, estimated at 55-60%. The left ventricular diastolic function is grade I diastolic dysfunction. Right Ventricle Right ventricular chamber dimension is normal. Right ventricular systolic function is normal. Left Atria Left atrial chamber dimension is mildly enlarged. Right Atria Right atrial chamber dimension is normal. Aortic Valve The aortic valve is trileaflet. There is moderate aortic valve sclerosis. There is mild aortic valve stenosis with a peak velocity of 155 cm/s, mean gradient of 5 mmHg, and aortic valve area of 1.9 cm2. There is no aortic valve regurgitation. Pulmonic Valve There is no pulmonic regurgitation. Mitral Valve The mitral valve has moderately calcified annulus. There is no mitral valve stenosis. There is trace mitral valve regurgitation. Tricuspid Valve There is no tricuspid valve regurgitation. No pulmonary hypertension, estimated pulmonary arterial systolic pressure is 28 mmHg. Pericardium/Pleural There is no pericardial effusion. Inferior Vena Cava Normal inferior vena cava with >50% collapse upon inspiration consistent with normal right atrial pressure, 5 mmHg. Aorta The aortic root size at the sinus of Valsalva is normal. Left Ventricular Outflow Tract Name Value Normal LVOT 2D LVOT Diameter 1.9 cm LVOT Doppler LVOT Peak Gradient 4 mmHg LVOT Mean Gradient 2 mmHg LVOT VTI 18 cm LVOT VTI/AV VTI Ratio 0.7 LVOT Stroke Volume 53 ml LVOT CO 4.1 l/min LVOT CI 2.0 l/min/m2 Pulmonic Valve Name Value Normal PV Doppler PV Peak Gradient 3 mmHg PV Regurgitation Doppler WA Peak End Diastolic Velocity 98 cm/s Mitral Valve Name Value Normal MV Doppler MV Decel Schoolcraft 361 cm/s2 MV PHT 60 ms MV Area (PHT) 3.7 cm2 4.0-5.0 MV Diastolic Function MV E Peak Velocity 75 cm/s MV A Peak Velocity 105 cm/s MV E/A 0.7 MV Decel Time 207 ms Tricuspid Valve Name Value Normal TV Regurgitation Doppler TR Peak Velocity 241 cm/s TR Peak Gradient 18 mmHg Estimated PAP/RSVP RA Pressure 5 mmHg <=5 PA Systolic Pressure 28 mmHg <36 RV Systolic Pressure 28 mmHg <36 Aorta Name Value Normal Ascending Aorta Ao Root Diameter (MM) 2.0 cm Ao Root Diam Index (MM) 1.0 cm/m2 Aortic Valve Name Value Normal AV Doppler AV Peak Velocity 155 cm/s AV Peak Gradient 10 mmHg AV Mean Gradient 5 mmHg AV VTI 27 cm AV Area (Cont Eq VTI) 1.9 cm2 >=3.0 AV Area (Cont Eq Albert) 1.8 cm2 AV Regurgitation 2D LVOT Area 2.9 cm2 Ventricles Name Value Normal LV Dimensions 2D/MM IVS Diastolic Thickness (2D) 1.1 cm 0.6-1.0 IVS Diastole Thickness (MM) 1.0 cm 0.6-0.9 LVID Diastole (2D) 3.6 cm 3.8-5.2 LVID Diastole (MM) 5.2 cm 3.8-5.2 LVIW Diastolic Thickness (2D) 1.1 cm 0.6-0.9 LVIW Diastolic Thickness (MM) 0.9 cm 0.6-0.9 LVID Systole (2D) 2.5 cm 2.2-3.5 LVID Systole (MM) 3.3 cm 2.2-3.5 LVOT Diameter 1.9 cm LV Mass (2D Cubed) 118.98 g 67.00-162.00 LV Mass Index (2D Cubed) 58 g/m2 43-95 Relative Wall Thickness (2D) 0.59 LV Mass (MM Cubed) 180.82 g 67.00-162.00 LV Mass Index (MM Cubed) 88 g/m2 43-95 Relative Wall Thickness (MM) 0.35 LV Fractional Shortening/Ejection Fraction 2D/MM LV Fractional Shortening (2D) 29 % 27-45 LV Fractional Shortening (MM) 37 % 27-45 LV EF (MM Teicholz) 67 % 54-74 LV EF (2D Teicholz) 57 % 54-74 LV Diastolic Volume (4C MOD) 69 ml LV EF (4C MOD) 50 % LV Diastolic Volume (2C MOD) 66 ml LV EF (2C MOD) 56 % LV Diastolic Volume (BP MOD) 69 ml 46-106 LV Diastolic Volume Index (BP MOD) 33 ml/m2 29-61 LV Systolic Volume (BP MOD) 32 ml 14-42 LV Systolic Volume Index (BP MOD) 15 ml/m2 8-24 LV EF (BP MOD) 54 % 54-74 LV Diastolic Length (4C) 7.6 cm LV Systolic Length (4C) 6.6 cm LV Stroke Volume (4C MOD) 34 ml Atria Name Value Normal LA Dimensions LA Dimension (MM) 4.8 cm 2.7-3.8 LA Volume (4C A-L) 45 ml LA Volume (BP A-L) 42 ml RA Dimensions RA Area (4C) 6.5 cm2 <=18.0 Report Signatures
[2024-09-19 00:18] LABS: Hemoglobin A1C 6.1 % (<5.7)
[2024-09-19] MEDS: ACETAMINOPHEN 325 MG TABLET 650 MG PO (00:18)
[2024-09-19 02:08] LABS: NT Pro B Type Natriuretic Pept 241 pg/mL (19.9-100)
[2024-09-19] MEDS: IPRATROPIUM 0.5 MG/ALBUTEROL SULFATE 2.5 MG AMPUL.NEB 3 ML INHALATION ×2 (02:18→07:52)
[2024-09-19] MEDS: DOXYCYCLINE HYCLATE 100 MG TABLET PO ×2 (05:07→17:25)
[2024-09-19 06:14] LABS: Basophils Percent Auto 0.3 % (0.2-1.2); Eosinophils Absolute Auto 0.2 K/mm3 (0-0.3); Eosinophils Percent Auto 1.7 % (0-4.4); Hematocrit 46.2 % (37.0-47.0); Hemoglobin 14.7 g/dL (12.0-15.0); Immature Granulocyte Absolute 0.03 K/mm3 (0.00-0.031); Immature Granulocyte Percent A 0.3 % (0-0.5); Lymphocytes Absolute Auto 1.51 K/mm3 (0.9-3.2); Lymphocytes Percent Auto 13.2 % (18.3-44.2); Mean Corpuscular HGB Conc 31.8 g/dl (32-36); Mean Corpuscular Hemoglobin 28.7 pg (26-34); Mean Corpuscular Volume 90.1 fl (80-100); Mean Platelet Volume 9.1 fl (7.4-10.4); Monocytes Absolute Auto 0.8 K/mm3 (0.1-0.6); Monocytes Percent Auto 7.2 % (2.6-8.5); Neutrophils Absolute Auto 8.9 K/mm3 (1.3-6.7); Neutrophils Percent Auto 77.3 % (45.5-73.1); Platelet Count Result 188 k/mm3 (150-375); Red Blood Count 5.13 M/mm3 (4.2-5.4); Red Cell Distribution Width 14.2 % (11.5-14.5); White Blood Count 11.5 K/mm3 (4.5-10.0)
[2024-09-19 06:33] LABS: Alanine Aminotransferase 25 U/L (6-35); Albumin Level 3.2 g/dL (3.5-5.1); Alkaline Phosphatase 161 U/L (38-126); Anion Gap 5 mmol/L (4-12); Aspartate Amino Transferase 31 U/L (14-36); Bilirubin,Total 0.9 mg/dL (0.2-1.3); Blood Urea Nitrogen 28 mg/dL (7-17); Carbon Dioxide 31 mmol/L (22-30); Chloride 100 mmol/L (98-107); Estimated CRCL calculation 43 ml/min; Estimated Glomerular Filt Rate 53; Glucose 115 mg/dL (65-110); Magnesium 2.2 mg/dL (1.6-2.3); Potassium 3.8 mmol/L (3.4-5.0); Sodium 136 mmol/L (137-145)
--- NOTE | 2024-09-19 07:15 | PM.IMPN ---
Progress Note: A&P Assessment and Plan (1) Pneumonia: Qualifiers: Laterality: left Lung location: upper lobe of lung Pneumonia type: due to unspecified organism Qualified Code(s): J18.9 - Pneumonia, unspecified organism Code(s): J18.9 - Pneumonia, unspecified organism Status: Acute Assessment and Plan: -LLL pneumonia as well as focal pneumonia or nodule in left upper lobe--repeat CT in 3 months recommended -Rocephin and doxycycline started in ER -MRSA PCR ordered, Pneumococcal Ag and Legionella Ag pending -Incentive spirometer and Q6HR Duonebs, encourage cough and deep breathing -Left sided chest/mid axillary pain most likely due to pneumonia (2) Deficit in activities of daily living (ADL): Code(s): Z78.9 - Other specified health status Status: Acute Assessment and Plan: -Patient unable to stand up from chair for 3 days then fell when she was able to get up -History of unsteady gait, likely from remote history of brain tumor removal in 1990 -Deconditioning due to acute illness likely exacerbating condition -PT/OT consulted, patient will likely need SNF vs exterminator 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 care (3) Generalized weakness: Code(s): R53.1 - Weakness Status: Acute Assessment and Plan: likely due to infection and deconditioning See above (4) Prediabetes: Code(s): R73.03 - Prediabetes Status: Acute Assessment and Plan: -Hemoglobin A1c 6.1 on admit, was 6.0 in April -Heart Healthy diet, watch daily sugar on metabolic panels (5) Essential (primary) hypertension: Code(s): I10 - Essential (primary) hypertension Status: Chronic Assessment and Plan: -Blood pressure elevated in ER, improved after arrival to the floor -Continue home nebivolol and HCTZ -Echo ordered due to pleural and pericardial effusions noted on imaging, last Echo on file from 2018 -echocardiogram 55-60% Time Spent With Patient Time with patient: Greater than 35 minutes Subjective Date/time seen: 09/19/24 07:15 Interval history: 79-year-old female patient with history of hypertension, hyperlipidemia, prediabetes and previously resected brain tumor who was admitted for pneumonia and weakness. Patient on doxy and Rocephin, Leukocytosis improved on a.m. labs. Echocardiogram EF 55-60% Patient will likely need placement. Working on discharge. Review of Systems Review of Systems: All systems reviewed & are unremarkable except as noted in HPI and below Exam Narrative: GENERAL: Appears slightly older than stated age, obese, deconditioned HEAD: Normocephalic, atraumatic. EYES: PERRLA and EOMI. NECK: Supple. No midline spine tenderness to palpation, step-off or crepitus CHEST: Lungs diminished in the left base both anteriorly and posteriorly. Tender to palpation in the left mid axillary line HEART: Regular rate and rhythm. No murmur heard. Normal peripheral pulses. ABDOMEN: Soft, nontender, nondistended, normal active bowel sounds. EXTREMITIES: Normal range of motion. No edema. SKIN: Warm, dry, no rash. NEURO: Alert and oriented x3. No focal deficit. Moving all 4 limbs spontaneously, generally weak lower extremities PSYCH: Normal mood and affect. Objective Data Vital Signs Vital Signs: Vital Signs - 24 hr 09/18/24 14:19 09/18/24 18:00 09/18/24 19:30 Temperature 97.7 F Pulse Rate 83 80 84 Respiratory Rate 16 20 24 H Blood Pressure 171/70 H 190/83 H 148/53 H Pulse Oximetry 97 100 97 Oxygen Delivery Fraction of Inspired Oxygen 09/18/24 19:00 09/18/24 21:35 09/19/24 02:18 Temperature 97.8 F Pulse Rate 83 89 90 Respiratory Rate 22 H 18 18 Blood Pressure 160/69 H 149/62 H Pulse Oximetry 97 96 Oxygen Delivery Fraction of Inspired Oxygen 09/19/24 02:23 09/19/24 02:25 09/18/24 21:24 Temperature Pulse Rate 90 88 Respiratory Rate 18 Blood Pressure Pulse Oximetry 93 Oxygen Delivery Room Air Room Air Fraction of Inspired Oxygen 09/19/24 05:57 Temperature 98 F Pulse Rate 81 Respiratory Rate 18 Blood Pressure 171/72 H Pulse Oximetry 95 Oxygen Delivery Fraction of Inspired Oxygen Intake/Output Intake/Output: Intake & Output 09/16/24 09/17/24 09/18/24 09/19/24 23:59 23:59 23:59 23:59 Intake Total 50 600 Balance 50 600 Meds/Results Medications: Active Medications Generic Name Dose Route Start Last Admin Trade Name Freq PRN Reason Stop Dose Admin Acetaminophen 650 mg 09/18/24 19:21 09/19/24 00:18 Acetaminophen 325 Mg Tablet PO 650 mg Q4H PRN Administration Mild Pain (1-3) or Fever Albuterol/Ipratropium 3 ml 09/19/24 02:00 09/19/24 02:18 Ipratropium 0.5 Mg/Albuterol Sulfate 2.5 Mg Ampul.Neb 3 Ml INHALATION 3 ml Q6HRT JANE Administration Doxycycline Hyclate 100 mg 09/19/24 06:00 09/19/24 05:07 Doxycycline Hyclate 100 Mg Tablet PO 100 mg Q12H JANE Administration Enoxaparin Sodium 40 mg 09/19/24 09:00 Enoxaparin 40 Mg/0.4 Ml Syringe SUB-Q DAILY AJNE Hydrochlorothiazide 12.5 mg 09/19/24 09:00 Hydrochlorothiazide 12.5 Mg Capsule PO DAILY JANE Ceftriaxone Sodium 1 gm in 50 mls @ 100 mls/hr 09/19/24 18:00 Rocephin 1 Gm/Ns 50 Ml IVPB Q24H JANE Nebivolol 2.5 mg 09/19/24 09:00 Nebivolol Hcl 2.5 Mg Tablet PO DAILY JANE Perflutren Lipid Microsphere 0 ml 09/18/24 22:31 Perflutren Lipid Microspheres 1.5 Ml Vial Diluted To 10 Ml Total Volume IV PUSH 09/21/24 22:32 ONCE PRN adequate visualization Protocol Radiology Results: ITS Impressions Head CT 09/18/24 17:35 IMPRESSION: No acute intracranial findings. Chest/Abdomen/Pelvis CT 09/18/24 18:20 IMPRESSION: CHEST: 1. Cardiomegaly with pericardial effusion 2. Left basilar atelectasis versus pneumonia with minimal pleural effusion. 3. Focal density in the left upper lobe which may be a nodule or focal pneumonia. Follow-up advised. Three-month CT follow-up advised. ABDOMEN/PELVIS: 1. No evidence of appendicitis, colitis or intestinal obstruction. 2. Cholelithiasis. 3. Small sliding hiatus hernia. 4. Hepatomegaly Labs Labs: Laboratory Results - last 24 hr 09/18/24 09/18/24 09/19/24 15:56 20:47 05:44 WBC 14.0 H 11.5 H RBC 5.72 H 5.13 Hgb 16.4 H 14.7 Hct 51.4 H 46.2 MCV 89.9 90.1 MCH 28.7 28.7 MCHC 31.9 L 31.8 L RDW 14.2 14.2 Plt Count 220 188 MPV 8.9 9.1 Immature Gran % (Auto) 0.3 0.3 Neut % (Auto) 88.6 H 77.3 H Lymph % (Auto) 5.1 L 13.2 L [place] % (Auto) 5.5 7.2 Eos % (Auto) 0.4 1.7 Baso % (Auto) 0.1 L 0.3 Lymph # (Auto) 0.71 L 1.51 [place] # (Auto) 0.8 H 0.8 H Eos # (Auto) 0.1 0.2 Baso # (Auto) 0.0 0.0 Abs Immat Gran (auto) 0.04 H 0.03 Absolute Neuts (auto) 12.4 H 8.9 H Absolute Nucleated RBC 0.000 0.000 Nucleated RBC % 0.0 0.0 PT 16.3 H INR 1.3 APTT 33.3 Sodium 137 136 L Potassium 4.0 3.8 Chloride 99 100 Carbon Dioxide 32 H 31 H Anion Gap 6 5 BUN 27 H D 28 H Creatinine 1.00 1.00 Estim Creat Clear Calc Not Reportable 43 Estimated GFR 53 L 53 L Glucose 128 H 115 H Hemoglobin A1c 6.1 H Calcium 10.5 H 10.0 Magnesium 2.5 H 2.2 Total Bilirubin 1.3 0.9 AST 31 31 ALT 29 25 Alkaline Phosphatase 196 H 161 H Total Creatine Kinase 48 Troponin I < 0.012 NT-Pro-B Natriuret Pep 241 H Total Protein 8.0 7.0 Albumin 4.1 3.2 L Quality VTE Prophylaxis VTE prophylaxis: pharmacologic ordered (Lovenox)
[2024-09-19 08:08] LABS: MRSA (PCR) NOT DETECTED (NOT DETECTE)
[2024-09-19] MEDS: hydroCHLOROthiazide 12.5 MG CAPSULE PO (09:40)
[2024-09-19] MEDS: NEBIVOLOL HCL 2.5 MG TABLET PO (09:40)
[2024-09-19] MEDS: ENOXAPARIN 40 MG/0.4 ML SYRINGE SUB-Q (09:41)
[2024-09-19 18:11] LABS: Add Urine Microscopic? YES; Appearance Urine Clear (Clear); Bacteria Urine Rare /hpf; Bilirubin Urine Negative (Negative); Blood Urine Negative (Negative); Color Urine Dark Yellow (Yellow); Glucose Urine UA Negative (Negative); Ketones Urine Trace mg/dL (Negative); Leukocyte Esterase Ur Trace LEU/UL (Negative); Mucus Urine Present /lpf; Need Manual Microscopic Reviewed; Nitrate Urine Negative (Negative); Non Pathogenic Casts 0-2; Protein Urine Trace mg/dL (Negative); RBC Urine 0-2 /hpf (0-2); Specific Grav Ur 1.039 (1.001-1.035); Squamous Epithelial Cell Urine Moderate /hpf (Few); pH Urine 5.5 (5.0-9.0)
[2024-09-20 04:50] LABS: Basophils Percent Auto 0.4 % (0.2-1.2); Eosinophils Absolute Auto 0.3 K/mm3 (0-0.3); Eosinophils Percent Auto 3.2 % (0-4.4); Hematocrit 45.8 % (37.0-47.0); Hemoglobin 14.6 g/dL (12.0-15.0); Immature Granulocyte Absolute 0.03 K/mm3 (0.00-0.031); Immature Granulocyte Percent A 0.3 % (0-0.5); Lymphocytes Absolute Auto 1.12 K/mm3 (0.9-3.2); Lymphocytes Percent Auto 12.5 % (18.3-44.2); Mean Corpuscular HGB Conc 31.9 g/dl (32-36); Mean Corpuscular Hemoglobin 28.6 pg (26-34); Mean Corpuscular Volume 89.8 fl (80-100); Monocytes Absolute Auto 0.6 K/mm3 (0.1-0.6); Monocytes Percent Auto 6.7 % (2.6-8.5); Neutrophils Absolute Auto 6.9 K/mm3 (1.3-6.7); Neutrophils Percent Auto 76.9 % (45.5-73.1); Platelet Count Result 170 k/mm3 (150-375); Red Cell Distribution Width 13.9 % (11.5-14.5); White Blood Count 8.9 K/mm3 (4.5-10.0)
[2024-09-20 05:21] LABS: Alanine Aminotransferase 30 U/L (6-35); Albumin Level 3.4 g/dL (3.5-5.1); Alkaline Phosphatase 150 U/L (38-126); Anion Gap 5 mmol/L (4-12); Aspartate Amino Transferase 39 U/L (14-36); Bilirubin,Total 0.9 mg/dL (0.2-1.3); Blood Urea Nitrogen 23 mg/dL (7-17); Carbon Dioxide 33 mmol/L (22-30); Chloride 99 mmol/L (98-107); Estimated CRCL calculation 48 ml/min; Estimated Glomerular Filt Rate 60; Glucose 119 mg/dL (65-110); Potassium 3.8 mmol/L (3.4-5.0); Sodium 137 mmol/L (137-145)
[2024-09-20] MEDS: DOXYCYCLINE HYCLATE 100 MG TABLET PO ×2 (05:24→17:44)
[2024-09-20 05:56] VITALS: BP 173/62; PULSE 65; RESP 16; TEMP 36.6; O2SAT 98
[2024-09-20 08:24] VITALS: PULSE 92
[2024-09-20] MEDS: hydroCHLOROthiazide 12.5 MG CAPSULE PO (08:24)
[2024-09-20] MEDS: NEBIVOLOL HCL 2.5 MG TABLET PO (08:24)
[2024-09-20 08:25] VITALS: O2SAT 98
[2024-09-20] MEDS: ENOXAPARIN 40 MG/0.4 ML SYRINGE SUB-Q (08:25)
--- NOTE | 2024-09-20 10:32 | P.PNIM_ITS ---
Progress Note: A&P Assessment and Plan (1) Pneumonia: Qualifiers: Laterality: left Lung location: upper lobe of lung Pneumonia type: due to unspecified organism Qualified Code(s): J18.9 - Pneumonia, unspecified organism Code(s): J18.9 - Pneumonia, unspecified organism Status: Acute Assessment and Plan: -LLL pneumonia as well as focal pneumonia or nodule in left upper lobe--repeat CT in 3 months recommended -Rocephin and doxycycline started in ER -MRSA PCR ordered, Pneumococcal Ag and Legionella Ag pending -Incentive spirometer and Q6HR Duonebs, encourage cough and deep breathing -Left sided chest/mid axillary pain most likely due to pneumonia 09/20: Continue IS, encourage cough/deep breathe, pain better. Can transition to oral abx on 09/21 (2) Deficit in activities of daily living (ADL): Code(s): Z78.9 - Other specified health status Status: Acute Assessment and Plan: -Patient unable to stand up from chair for 3 days then fell when she was able to get up -History of unsteady gait, likely from remote history of brain tumor removal in 1990 -Deconditioning due to acute illness likely exacerbating condition -PT/OT consulted, patient will likely need SNF vs senior care care 09/20: Ins auth started for SNF (3) Generalized weakness: Code(s): R53.1 - Weakness Status: Acute Assessment and Plan: likely due to infection and deconditioning See above (4) Prediabetes: Code(s): R73.03 - Prediabetes Status: Acute Assessment and Plan: -Hemoglobin A1c 6.1 on admit, was 6.0 in April -Heart Healthy diet, watch daily sugar on metabolic panels (5) Essential (primary) hypertension: Code(s): I10 - Essential (primary) hypertension Status: Chronic Assessment and Plan: -Blood pressure elevated in ER, improved after arrival to the floor -Continue home nebivolol and HCTZ -Echo ordered due to pleural and pericardial effusions noted on imaging, last Echo on file from 2017 -echocardiogram 55-60% Time Spent With Patient Time with patient: 25 - 35 minutes Subjective Date/time seen: 09/20/24 10:32 Interval history: No dyspnea. Patient on room air. PT/OT recommending SNF, insurance auth started. Patient will be able to switch to oral abx by time of discharge. Encouraged patient to be up to chair for meals and increase activity as tolerated. Review of Systems Review of Systems: All systems reviewed & are unremarkable except as noted in HPI and below Exam Narrative: GENERAL: Appears slightly older than stated age, obese, deconditioned HEAD: Normocephalic, atraumatic. EYES: PERRLA and EOMI. NECK: Supple. No midline spine tenderness to palpation, step-off or crepitus CHEST: Lungs diminished in the left base both anteriorly and posteriorly. Tender to palpation in the left mid axillary line HEART: Regular rate and rhythm. No murmur heard. Normal peripheral pulses. ABDOMEN: Soft, nontender, nondistended, normal active bowel sounds. EXTREMITIES: Normal range of motion. No edema. SKIN: Warm, dry, no rash. NEURO: Alert and oriented x3. No focal deficit. Moving all 4 limbs spontaneously, generally weak lower extremities PSYCH: Normal mood and affect. Objective Data Vital Signs Vital Signs: Vital Signs - 24 hr 09/19/24 11:05 09/19/24 13:34 09/19/24 14:00 Temperature 36.4 C Pulse Rate 82 Respiratory Rate 18 Blood Pressure 121/94 H Pulse Oximetry 100 Oxygen Delivery Room Air Room Air 09/19/24 22:00 09/20/24 05:56 09/20/24 08:24 Temperature 36.9 C 36.6 C Pulse Rate 80 65 92 Respiratory Rate 20 16 Blood Pressure 165/57 H 173/62 H Pulse Oximetry 97 98 Oxygen Delivery 09/20/24 08:25 Temperature Pulse Rate Respiratory Rate Blood Pressure Pulse Oximetry 98 Oxygen Delivery Room Air Intake/Output Intake/Output: Intake & Output 09/17/24 09/18/24 09/19/24 09/20/24 23:59 23:59 23:59 23:59 Intake Total 50 6831 820 Output Total 450 Balance 50 1080 370 Meds/Results Medications: Active Medications Generic Name Dose Route Start Last Admin Trade Name Freq PRN Reason Stop Dose Admin Acetaminophen 650 mg 09/18/24 19:21 09/19/24 00:18 Acetaminophen 325 Mg Tablet PO 650 mg Q4H PRN Administration Mild Pain (1-3) or Fever Albuterol/Ipratropium 3 ml 09/19/24 09:41 Ipratropium 0.5 Mg/Albuterol Sulfate 2.5 Mg Ampul.Neb 3 Ml INHALATION Q6HRT PRN Wheezing Doxycycline Hyclate 100 mg 09/19/24 06:00 09/20/24 05:24 Doxycycline Hyclate 100 Mg Tablet PO 100 mg Q12H JANE Administration Enoxaparin Sodium 40 mg 09/19/24 09:00 09/20/24 08:25 Enoxaparin 40 Mg/0.4 Ml Syringe SUB-Q 40 mg DAILY JANE Administration Hydrochlorothiazide 12.5 mg 09/19/24 09:00 09/20/24 08:24 Hydrochlorothiazide 12.5 Mg Capsule PO 12.5 mg DAILY JANE Administration Ceftriaxone Sodium 1 gm in 50 mls @ 100 mls/hr 09/19/24 18:00 09/19/24 17:25 Rocephin 1 Gm/Ns 50 Ml IVPB 100 mls/hr Q24H JANE Administration Nebivolol 2.5 mg 09/19/24 09:00 09/20/24 08:24 Nebivolol Hcl 2.5 Mg Tablet PO 2.5 mg DAILY JANE Administration Perflutren Lipid Microsphere 0 ml 09/18/24 22:31 Perflutren Lipid Microspheres 1.5 Ml Vial Diluted To 10 Ml Total Volume IV PUSH 09/21/24 22:32 ONCE PRN adequate visualization Protocol Radiology Results: ITS Impressions Head CT 09/18/24 17:35 IMPRESSION: No acute intracranial findings. Chest/Abdomen/Pelvis CT 09/18/24 18:20 IMPRESSION: CHEST: 1. Cardiomegaly with pericardial effusion 2. Left basilar atelectasis versus pneumonia with minimal pleural effusion. 3. Focal density in the left upper lobe which may be a nodule or focal pneumonia. Follow-up advised. Three-month CT follow-up advised. ABDOMEN/PELVIS: 1. No evidence of appendicitis, colitis or intestinal obstruction. 2. Cholelithiasis. 3. Small sliding hiatus hernia. 4. Hepatomegaly Labs Labs: Laboratory Results - last 24 hr 09/19/24 09/20/24 17:36 04:41 WBC 8.9 RBC 5.10 Hgb 14.6 Hct 45.8 MCV 89.8 MCH 28.6 MCHC 31.9 L RDW 13.9 Plt Count 170 MPV 9.0 Immature Gran % (Auto) 0.3 Neut % (Auto) 76.9 H Lymph % (Auto) 12.5 L [place] % (Auto) 6.7 Eos % (Auto) 3.2 Baso % (Auto) 0.4 Lymph # (Auto) 1.12 [place] # (Auto) 0.6 Eos # (Auto) 0.3 Baso # (Auto) 0.0 Abs Immat Gran (auto) 0.03 Absolute Neuts (auto) 6.9 H Absolute Nucleated RBC 0.000 Nucleated RBC % 0.0 Sodium 137 Potassium 3.8 Chloride 99 Carbon Dioxide 33 H Anion Gap 5 BUN 23 H Creatinine 0.90 Estim Creat Clear Calc 48 Estimated GFR 60 Glucose 119 H Calcium 10.0 Magnesium 2.0 Total Bilirubin 0.9 AST 39 H ALT 30 Alkaline Phosphatase 150 H Total Protein 7.0 Albumin 3.4 L Urine Color Dark yellow Urine Appearance Clear Urine pH 5.5 Ur Specific [place] 1.039 H Urine Protein Trace Urine Glucose (UA) Negative Urine Ketones Trace H Ur Blood (Man) Negative Urine Nitrate Negative Urine Bilirubin Negative Urine Urobilinogen 1.0 Add Ur Microanalysis Reviewed Leukocyte Esterase Rfl Trace H Urine RBC 0-2 Urine WBC 11-20 H Ur Squamous Epith Cells Moderate Urine Bacteria Rare Urine Casts 0-2 Urine Mucus Present Pulse Oximetry SpO2 results: 98% on room air Attestation: I personally reviewed and interpreted this pulse oximetry as follows: Interpretation: No need for supplemental oxygenation at this time Quality VTE Prophylaxis VTE prophylaxis: pharmacologic ordered (Lovenox)
[2024-09-20 14:00] VITALS: BP 121/67; PULSE 66; RESP 17; TEMP 35.8; O2SAT 90
[2024-09-20 22:00] VITALS: BP 146/78; PULSE 73; RESP 16; TEMP 37; O2SAT 96
[2024-09-21] VITALS (7 sets, daily range): BP systolic 117–176; BP diastolic 54–70; PULSE 66–83; RESP 14–18; TEMP 36.4–36.8; O2SAT 95–99
[2024-09-21] MEDS: DOXYCYCLINE HYCLATE 100 MG TABLET PO ×2 (06:07→17:05)
[2024-09-21 06:18] LABS: Basophils Percent Auto 0.2 % (0.2-1.2); Eosinophils Absolute Auto 0.2 K/mm3 (0-0.3); Eosinophils Percent Auto 2.8 % (0-4.4); Hematocrit 46.3 % (37.0-47.0); Hemoglobin 14.3 g/dL (12.0-15.0); Immature Granulocyte Absolute 0.04 K/mm3 (0.00-0.031); Immature Granulocyte Percent A 0.5 % (0-0.5); Immature Platelet Fraction Pct 2.4 % (0.9-11.2); Lymphocytes Absolute Auto 1.27 K/mm3 (0.9-3.2); Lymphocytes Percent Auto 15.6 % (18.3-44.2); Mean Corpuscular HGB Conc 30.9 g/dl (32-36); Mean Corpuscular Hemoglobin 28.7 pg (26-34); Mean Platelet Volume 9.5 fl (7.4-10.4); Monocytes Absolute Auto 0.6 K/mm3 (0.1-0.6); Monocytes Percent Auto 7.1 % (2.6-8.5); Neutrophils Percent Auto 73.8 % (45.5-73.1); Platelet Count Result 161 k/mm3 (150-375); Red Blood Count 4.98 M/mm3 (4.2-5.4); White Blood Count 8.2 K/mm3 (4.5-10.0)
[2024-09-21 07:38] LABS: Alanine Aminotransferase 39 U/L (6-35); Albumin Level 3.6 g/dL (3.5-5.1); Alkaline Phosphatase 136 U/L (38-126); Anion Gap 4 mmol/L (4-12); Aspartate Amino Transferase 44 U/L (14-36); Blood Urea Nitrogen 23 mg/dL (7-17); Carbon Dioxide 33 mmol/L (22-30); Chloride 99 mmol/L (98-107); Estimated CRCL calculation 48 ml/min; Estimated Glomerular Filt Rate 60; Glucose 119 mg/dL (65-110); Magnesium 2.1 mg/dL (1.6-2.3); Potassium 3.9 mmol/L (3.4-5.0); Sodium 136 mmol/L (137-145)
[2024-09-21] MEDS: hydroCHLOROthiazide 12.5 MG CAPSULE PO ×2 (09:00→12:46)
[2024-09-21] MEDS: ENOXAPARIN 40 MG/0.4 ML SYRINGE SUB-Q (09:00)
[2024-09-21] MEDS: NEBIVOLOL HCL 2.5 MG TABLET PO ×2 (09:01→12:48)
--- NOTE | 2024-09-21 10:11 | P.PNIM_ITS ---
Progress Note: A&P Assessment and Plan (1) Pneumonia: Qualifiers: Laterality: left Lung location: upper lobe of lung Pneumonia type: due to unspecified organism Qualified Code(s): J18.9 - Pneumonia, unspecified organism Code(s): J18.9 - Pneumonia, unspecified organism Status: Acute Assessment and Plan: * Chest x-ray showing possible pneumonia * Rocephin discontinued * start Augmentin and continue doxycycline * urine strep and urine Legionella obtained and pending * continue DuoNebs as needed * continue incentive spirometry * PT and OT ordered * Case coordination following for outpatient rehab needs (2) Deficit in activities of daily living (ADL): Code(s): Z78.9 - Other specified health status Status: Acute Assessment and Plan: * PT and OT ordered * Case coordination following for outpatient rehab needs (3) Generalized weakness: Code(s): R53.1 - Weakness Status: Acute Assessment and Plan: * continue PT and OT * Continue fall precautions (4) Essential (primary) hypertension: Code(s): I10 - Essential (primary) hypertension Status: Chronic Assessment and Plan: * blood pressure ranging 146/78 to 176/60 * increase Bystolic to 5 mg daily * increase hydrochlorothiazide to 25 mg daily Time Spent With Patient Time with patient: Greater than 35 minutes Subjective Date/time seen: 09/21/24 10:11 Interval history: Interval history: This is an 79-year-old female who presented to the hospital on 09/18/2024 with generalized weakness and left-sided chest pain. Workup in the hospital included a chest/abdomen/ pelvis CT which shown cardiomegaly with Trace pericardial effusion, left basilar atelectasis versus pneumonia, focal density in the left upper lobe which may be a nodule or focal pneumonia, small sliding hiatus hernia, hepatomegaly, cholelithiasis. Echocardiogram showing normal LV systolic function with an estimated EF of 55-60%, grade 1 diastolic dysfunction, moderate aortic valve sclerosis and stenosis. Initial labs showed a white blood cell count of 14.0, hemoglobin 16.4, hematocrit 51.4, hemoglobin A1c 6.1, alkaline phosphate 196, troponin negative, proBNP 241. A UA was obtained which showed a urine specific gravity of 1.039, trace ketone, trace leukocytes, 11-20 urine WBC, rare bacteria. MRSA was negative. Urine strep and urine Legionella were obtained and pending. Urine culture was negative. Blood culture showing no growth to date on preliminary read. Patient was started on Rocephin and doxycycline. Subjective: Patient denies any fever, chills, nausea, vomiting, diarrhea, abdominal pain, chest pain, shortness a breath, cough. Patient states she did not sleep well through the night otherwise has no new complaints today. Labs and imaging reviewed. Review of Systems Review of Systems: All systems reviewed & are unremarkable except as noted in HPI and below Constitutional: Constitutional: Reports as per HPI and Reports no additional constitutional complaints Eyes: Eyes: Reports as per HPI and Reports no additional eye complaints ENT: Reports system reviewed and no additional complaints, except as documented and Reports as per HPI Cardiovascular: Cardiovascular: Reports as per HPI and Reports no additional cardiovascular complaints Respiratory: Respiratory: Reports as per HPI and Reports no additional respiratory complaints Gastrointestinal: Gastrointestinal: Reports as per HPI and Reports no additional gastrointestinal complaints Genitourinary: Genitourinary: Reports no additional female genitourinary complaints and Reports as per HPI Musculoskeletal: Musculoskeletal: Reports no additional musculoskeletal complaints and Reports as per HPI Integumentary/Breasts: Skin/Breast: Reports system reviewed and no additional complaints, except as docu and Reports as per HPI Neurologic: Reports system reviewed and no additional complaints, except as documented and Reports as per HPI Psychiatric: Psychiatric: Reports no additional psychiatric complaints and Reports as per HPI Exam Narrative: General: In no acute distress, well nourished Head: atraumatic, no encephalopathy Eyes: PERRLA, sclera clear ENT: tacky mucous membranes, nasal passages clear Neck: supple, no JVD, no adenopathy, trachea midline Cardiac: Normal S1 and S2. RRR, No murmur, gallops or friction rubs, peripheral pulses intact. Respiratory: Lungs clear to auscultation, no adventitious lung sounds, currently on room air Gastrointestinal: soft, non-distended, non-tender, normoactive bowel sounds. : voiding without difficulty clear conchita urine, currently has purewick in place Extremities: moves all extremities well, trace to mild leg swelling Skin: dry and flaky, poor skin turgor Neuro: Alert and oriented x4, cranial nerves intact, no neuro deficits. Psych: normal mood, normal affect, interactive Objective Data Vital Signs Vital Signs: Vital Signs - 24 hr 09/20/24 14:00 09/20/24 22:00 09/20/24 20:00 Temperature 96.5 F L 98.6 F Pulse Rate 66 73 Respiratory Rate 17 16 Blood Pressure 121/67 146/78 H Pulse Oximetry 90 96 Oxygen Delivery Room Air 09/21/24 06:16 09/21/24 08:58 09/21/24 09:01 Temperature 98.2 F Pulse Rate 66 70 78 Respiratory Rate 18 16 Blood Pressure 176/60 H 150/54 H Pulse Oximetry 97 95 Oxygen Delivery Intake/Output Intake/Output: Intake & Output 09/18/24 09/19/24 09/20/24 09/21/24 23:59 23:59 23:59 23:59 Intake Total 50 1130 1300 440 Output Total 750 Balance 50 1130 550 440 Meds/Results Medications: Active Medications Generic Name Dose Route Start Last Admin Trade Name Freq PRN Reason Stop Dose Admin Acetaminophen 650 mg 09/18/24 19:21 09/19/24 00:18 Acetaminophen 325 Mg Tablet PO 650 mg Q4H PRN Administration Mild Pain (1-3) or Fever Albuterol/Ipratropium 3 ml 09/19/24 09:41 Ipratropium 0.5 Mg/Albuterol Sulfate 2.5 Mg Ampul.Neb 3 Ml INHALATION Q6HRT PRN Wheezing Doxycycline Hyclate 100 mg 09/19/24 06:00 09/21/24 06:07 Doxycycline Hyclate 100 Mg Tablet PO 100 mg Q12H JANE Administration Enoxaparin Sodium 40 mg 09/19/24 09:00 09/21/24 09:00 Enoxaparin 40 Mg/0.4 Ml Syringe SUB-Q 40 mg DAILY JANE Administration Hydrochlorothiazide 12.5 mg 09/19/24 09:00 09/21/24 09:00 Hydrochlorothiazide 12.5 Mg Capsule PO 12.5 mg DAILY JANE Administration Ceftriaxone Sodium 1 gm in 50 mls @ 100 mls/hr 09/19/24 18:00 09/20/24 17:44 Rocephin 1 Gm/Ns 50 Ml IVPB 100 mls/hr Q24H JANE Administration Nebivolol 2.5 mg 09/19/24 09:00 09/21/24 09:01 Nebivolol Hcl 2.5 Mg Tablet PO 2.5 mg DAILY JANE Administration Perflutren Lipid Microsphere 0 ml 09/18/24 22:31 Perflutren Lipid Microspheres 1.5 Ml Vial Diluted To 10 Ml Total Volume IV PUSH 09/21/24 22:32 ONCE PRN adequate visualization Protocol Radiology Results: ITS Impressions Head CT 09/18/24 17:35 IMPRESSION: No acute intracranial findings. Chest/Abdomen/Pelvis CT 09/18/24 18:20 IMPRESSION: CHEST: 1. Cardiomegaly with pericardial effusion 2. Left basilar atelectasis versus pneumonia with minimal pleural effusion. 3. Focal density in the left upper lobe which may be a nodule or focal pneumonia. Follow-up advised. Three-month CT follow-up advised. ABDOMEN/PELVIS: 1. No evidence of appendicitis, colitis or intestinal obstruction. 2. Cholelithiasis. 3. Small sliding hiatus hernia. 4. Hepatomegaly Labs Labs: Laboratory Results - last 24 hr 09/21/24 09/21/24 06:02 07:05 WBC 8.2 RBC 4.98 Hgb 14.3 Hct 46.3 MCV 93.0 MCH 28.7 MCHC 30.9 L RDW 14.0 Plt Count 161 MPV 9.5 Immature Gran % (Auto) 0.5 Neut % (Auto) 73.8 H Lymph % (Auto) 15.6 L [place] % (Auto) 7.1 Eos % (Auto) 2.8 Baso % (Auto) 0.2 Lymph # (Auto) 1.27 [place] # (Auto) 0.6 Eos # (Auto) 0.2 Baso # (Auto) 0.0 Abs Immat Gran (auto) 0.04 H Absolute Neuts (auto) 6.0 Absolute Nucleated RBC 0.000 Nucleated RBC % 0.0 % Immature Plt Fraction 2.4 Sodium 136 L Potassium 3.9 Chloride 99 Carbon Dioxide 33 H Anion Gap 4 BUN 23 H Creatinine 0.90 Estim Creat Clear Calc 48 Estimated GFR 60 Glucose 119 H Calcium 10.0 Magnesium 2.1 Total Bilirubin 1.0 AST 44 H ALT 39 H Alkaline Phosphatase 136 H Total Protein 7.0 Albumin 3.6 Quality VTE Prophylaxis VTE prophylaxis: pharmacologic ordered (Lovenox)
[2024-09-21] MEDS: polyethylene glycoL 3350 17 GM POWD.PACK PO (12:46)
[2024-09-21] MEDS: AMOXICILLIN/CLAVULANATE K 875-125 MG TAB 1 TABLET PO (21:35)
[2024-09-22] MEDS: DOXYCYCLINE HYCLATE 100 MG TABLET PO ×2 (05:51→18:06)
[2024-09-22 06:00] VITALS: BP 184/66; PULSE 68; RESP 16; TEMP 36.8; O2SAT 96
[2024-09-22 06:24] LABS: Alanine Aminotransferase 45 U/L (6-35); Anion Gap 4 mmol/L (4-12); Blood Urea Nitrogen 24 mg/dL (7-17); Calcium 9.7 mg/dL (8.4-10.2); Carbon Dioxide 30 mmol/L (22-30); Chloride 101 mmol/L (98-107); Estimated CRCL calculation 53 ml/min; Estimated Glomerular Filt Rate > 60; Glucose 116 mg/dL (65-110); Sodium 135 mmol/L (137-145)
[2024-09-22 06:25] LABS: Magnesium 2.1 mg/dL (1.6-2.3)
[2024-09-22 06:30] LABS: Potassium 3.6 mmol/L (3.4-5.0)
[2024-09-22 06:31] LABS: Albumin Level 2.9 g/dL (3.5-5.1); Alkaline Phosphatase 126 U/L (38-126); Aspartate Amino Transferase 47 U/L (14-36)
--- NOTE | 2024-09-22 07:24 | P.PNIM_ITS ---
Progress Note: A&P Assessment and Plan (1) Pneumonia: Qualifiers: Laterality: left Lung location: upper lobe of lung Pneumonia type: due to unspecified organism Qualified Code(s): J18.9 - Pneumonia, unspecified organism Code(s): J18.9 - Pneumonia, unspecified organism Status: Acute Assessment and Plan: * Chest x-ray showing possible pneumonia * Rocephin discontinued * Continue Augmentin and doxycycline * urine strep and urine Legionella obtained and pending * continue DuoNebs as needed * continue incentive spirometry * PT and OT ordered * Case coordination following for outpatient rehab needs (2) Deficit in activities of daily living (ADL): Code(s): Z78.9 - Other specified health status Status: Acute Assessment and Plan: * PT and OT ordered * Case coordination following for outpatient rehab needs (3) Generalized weakness: Code(s): R53.1 - Weakness Status: Acute Assessment and Plan: * continue PT and OT * Continue fall precautions (4) Essential (primary) hypertension: Code(s): I10 - Essential (primary) hypertension Status: Chronic Assessment and Plan: * blood pressure ranging 117/68-184/66 * increase Bystolic to 5 mg daily * increase hydrochlorothiazide to 25 mg daily Subjective Date/time seen: 09/22/24 07:24 Interval history: Interval history: This is an 79-year-old female who presented to the hospital on 09/18/2024 with generalized weakness and left-sided chest pain. Workup in the hospital included a chest/abdomen/ pelvis CT which shown cardiomegaly with Trace pericardial effusion, left basilar atelectasis versus pneumonia, focal density in the left upper lobe which may be a nodule or focal pneumonia, small sliding hiatus hernia, hepatomegaly, cholelithiasis. Echocardiogram showing normal LV systolic function with an estimated EF of 55-60%, grade 1 diastolic dysfunction, moderate aortic valve sclerosis and stenosis. Initial labs showed a white blood cell count of 14.0, hemoglobin 16.4, hematocrit 51.4, hemoglobin A1c 6.1, alkaline phosphate 196, troponin negative, proBNP 241. A UA was obtained which showed a urine specific gravity of 1.039, trace ketone, trace leukocytes, 11-20 urine WBC, rare bacteria. MRSA was negative. Urine strep and urine Legionella were obtained and pending. Urine culture was negative. Blood culture showing no growth to date on preliminary read. Patient was started on Rocephin and doxycycline. She was transitioned to Augmentin. Subjective: Patient denies any new complaints today. Labs reviewed an essentially unremarkable. Review of Systems Review of Systems: All systems reviewed & are unremarkable except as noted in HPI and below Constitutional: Constitutional: Reports as per HPI and Reports no additional constitutional complaints Eyes: Eyes: Reports as per HPI and Reports no additional eye complaints ENT: Reports system reviewed and no additional complaints, except as documented and Reports as per HPI Cardiovascular: Cardiovascular: Reports as per HPI and Reports no additional cardiovascular complaints Respiratory: Respiratory: Reports as per HPI and Reports no additional respiratory complaints Gastrointestinal: Gastrointestinal: Reports as per HPI and Reports no additional gastrointestinal complaints Genitourinary: Genitourinary: Reports no additional female genitourinary complaints and Reports as per HPI Musculoskeletal: Musculoskeletal: Reports no additional musculoskeletal complaints and Reports as per HPI Integumentary/Breasts: Skin/Breast: Reports system reviewed and no additional complaints, except as docu and Reports as per HPI Neurologic: Reports system reviewed and no additional complaints, except as documented and Reports as per HPI Psychiatric: Psychiatric: Reports no additional psychiatric complaints and Reports as per HPI Exam Narrative: General: In no acute distress, well nourished Cardiac: No murmurs or friction rubs, peripheral pulses intact. Respiratory: Lungs clear to auscultation, no adventitious lung sounds, currently on room air Gastrointestinal: soft, non-distended, non-tender, normoactive bowel sounds. : voiding without difficulty clear conchita urine, currently has pure wick in place Neuro: Alert and oriented x4 Objective Data Vital Signs Vital Signs: Vital Signs - 24 hr 09/21/24 08:58 09/21/24 09:01 09/21/24 08:50 Temperature Pulse Rate 70 78 Respiratory Rate 16 Blood Pressure 150/54 H Pulse Oximetry 95 95 Oxygen Delivery Room Air 09/21/24 12:48 09/21/24 14:00 09/21/24 21:35 Temperature 97.5 F L Pulse Rate 70 83 Respiratory Rate 14 Blood Pressure 117/68 Pulse Oximetry 97 Oxygen Delivery Room Air 09/21/24 23:00 Temperature 98.1 F Pulse Rate 71 Respiratory Rate 18 Blood Pressure 158/70 H Pulse Oximetry 99 Oxygen Delivery Intake/Output Intake/Output: Intake & Output 12/05/24 09/20/24 09/21/24 09/22/24 23:59 23:59 23:59 23:59 Intake Total 1130 1300 2020 Output Total 750 400 Balance 3924 323 8427 Meds/Results Medications: Active Medications Generic Name Dose Route Start Last Admin Trade Name Freq PRN Reason Stop Dose Admin Acetaminophen 650 mg 09/18/24 19:21 09/19/24 00:18 Acetaminophen 325 Mg Tablet PO 650 mg Q4H PRN Administration Mild Pain (1-3) or Fever Albuterol/Ipratropium 3 ml 09/19/24 09:41 Ipratropium 0.5 Mg/Albuterol Sulfate 2.5 Mg Ampul.Neb 3 Ml INHALATION Q6HRT PRN Wheezing Amoxicillin/Clavulanate Potassium 1 tablet 09/21/24 21:00 09/21/24 21:35 Amoxicillin/Clavulanate K 875-125 Mg Tab PO 1 tablet Q12HR JANE Administration Doxycycline Hyclate 100 mg 09/19/24 06:00 09/22/24 05:51 Doxycycline Hyclate 100 Mg Tablet PO 100 mg Q12H JANE Administration Enoxaparin Sodium 40 mg 09/19/24 09:00 09/21/24 09:00 Enoxaparin 40 Mg/0.4 Ml Syringe SUB-Q 40 mg DAILY JANE Administration Hydrochlorothiazide 25 mg 09/22/24 09:00 Hydrochlorothiazide 12.5 Mg Capsule PO DAILY JANE Nebivolol 5 mg 09/22/24 09:00 Nebivolol Hcl 5 Mg Tablet PO DAILY [facility] Polyethylene Glycol 17 gm 09/21/24 11:05 09/21/24 12:46 Polyethylene Glycol 3350 17 Gm Powd.Pack PO 17 gm QAM JANE Administration Radiology Results: ITS Impressions Head CT 09/18/24 17:35 IMPRESSION: No acute intracranial findings. Chest/Abdomen/Pelvis CT 09/18/24 18:20 IMPRESSION: CHEST: 1. Cardiomegaly with pericardial effusion 2. Left basilar atelectasis versus pneumonia with minimal pleural effusion. 3. Focal density in the left upper lobe which may be a nodule or focal pneumonia. Follow-up advised. Three-month CT follow-up advised. ABDOMEN/PELVIS: 1. No evidence of appendicitis, colitis or intestinal obstruction. 2. Cholelithiasis. 3. Small sliding hiatus hernia. 4. Hepatomegaly Labs Labs: Laboratory Results - last 24 hr 09/21/24 09/22/24 07:05 05:50 Sodium 136 L 135 L Potassium 3.9 3.6 Chloride 99 101 Carbon Dioxide 33 H 30 Anion Gap 4 4 BUN 23 H 24 H Creatinine 0.90 0.80 Estim Creat Clear Calc 48 53 Estimated GFR 60 > 60 Glucose 119 H 116 H Calcium 10.0 9.7 Magnesium 2.1 2.1 Total Bilirubin 1.0 1.0 AST 44 H 47 H ALT 39 H 45 H Alkaline Phosphatase 136 H 126 Total Protein 7.0 5.0 L Albumin 3.6 2.9 L Quality VTE Prophylaxis VTE prophylaxis: pharmacologic ordered (Lovenox)
[2024-09-22 07:44] LABS: Basophils Percent Auto 0.4 % (0.2-1.2); Eosinophils Absolute Auto 0.3 K/mm3 (0-0.3); Eosinophils Percent Auto 3.1 % (0-4.4); Hematocrit 47.3 % (37.0-47.0); Hemoglobin 15.1 g/dL (12.0-15.0); Immature Granulocyte Absolute 0.03 K/mm3 (0.00-0.031); Immature Granulocyte Percent A 0.4 % (0-0.5); Lymphocytes Absolute Auto 1.26 K/mm3 (0.9-3.2); Lymphocytes Percent Auto 15.1 % (18.3-44.2); Mean Corpuscular HGB Conc 31.9 g/dl (32-36); Mean Corpuscular Hemoglobin 28.6 pg (26-34); Mean Corpuscular Volume 89.6 fl (80-100); Monocytes Absolute Auto 0.6 K/mm3 (0.1-0.6); Monocytes Percent Auto 7.5 % (2.6-8.5); Neutrophils Absolute Auto 6.2 K/mm3 (1.3-6.7); Neutrophils Percent Auto 73.5 % (45.5-73.1); Platelet Count Result 186 k/mm3 (150-375); Red Blood Count 5.28 M/mm3 (4.2-5.4); Red Cell Distribution Width 13.9 % (11.5-14.5); White Blood Count 8.4 K/mm3 (4.5-10.0)
[2024-09-22 09:16] VITALS: BP 154/72
[2024-09-22 09:17] VITALS: PULSE 74
[2024-09-22] MEDS: NEBIVOLOL HCL 5 MG TABLET PO (09:17)
[2024-09-22] MEDS: AMOXICILLIN/CLAVULANATE K 875-125 MG TAB 1 TABLET PO ×2 (09:17→20:22)
[2024-09-22] MEDS: hydroCHLOROthiazide 12.5 MG CAPSULE 25 MG PO (09:17)
[2024-09-22] MEDS: polyethylene glycoL 3350 17 GM POWD.PACK PO (09:18)
[2024-09-22] MEDS: ENOXAPARIN 40 MG/0.4 ML SYRINGE SUB-Q (09:18)
[2024-09-22 14:00] VITALS: BP 122/42; PULSE 72; RESP 14; TEMP 36.4; O2SAT 97
[2024-09-22 20:03] LABS: Pneumococcal Antigen Urine NOT DETECTED
[2024-09-22 22:26] VITALS: BP 167/64; PULSE 66; RESP 18; TEMP 36.8; O2SAT 97
[2024-09-23] MEDS: DOXYCYCLINE HYCLATE 100 MG TABLET PO ×2 (05:03→17:37)
[2024-09-23 05:21] LABS: Basophils Percent Auto 0.3 % (0.2-1.2); Eosinophils Absolute Auto 0.2 K/mm3 (0-0.3); Eosinophils Percent Auto 2.3 % (0-4.4); Hematocrit 49.4 % (37.0-47.0); Hemoglobin 15.5 g/dL (12.0-15.0); Immature Granulocyte Absolute 0.03 K/mm3 (0.00-0.031); Immature Granulocyte Percent A 0.3 % (0-0.5); Lymphocytes Absolute Auto 1.46 K/mm3 (0.9-3.2); Lymphocytes Percent Auto 15.7 % (18.3-44.2); Mean Corpuscular HGB Conc 31.4 g/dl (32-36); Mean Corpuscular Hemoglobin 28.4 pg (26-34); Mean Corpuscular Volume 90.6 fl (80-100); Mean Platelet Volume 9.2 fl (7.4-10.4); Monocytes Absolute Auto 0.7 K/mm3 (0.1-0.6); Neutrophils Absolute Auto 6.8 K/mm3 (1.3-6.7); Neutrophils Percent Auto 73.4 % (45.5-73.1); Platelet Count Result 156 k/mm3 (150-375); Red Blood Count 5.45 M/mm3 (4.2-5.4); Red Cell Distribution Width 13.9 % (11.5-14.5); White Blood Count 9.3 K/mm3 (4.5-10.0)
[2024-09-23 05:44] LABS: Alanine Aminotransferase 47 U/L (6-35); Albumin Level 3.3 g/dL (3.5-5.1); Alkaline Phosphatase 129 U/L (38-126); Anion Gap 2 mmol/L (4-12); Aspartate Amino Transferase 41 U/L (14-36); Blood Urea Nitrogen 21 mg/dL (7-17); Calcium 9.9 mg/dL (8.4-10.2); Carbon Dioxide 30 mmol/L (22-30); Chloride 101 mmol/L (98-107); Estimated CRCL calculation 60 ml/min; Estimated Glomerular Filt Rate > 60; Glucose 109 mg/dL (65-110); Magnesium 2.2 mg/dL (1.6-2.3); Potassium 3.9 mmol/L (3.4-5.0); Sodium 133 mmol/L (137-145)
[2024-09-23 06:00] VITALS: BP 153/66; PULSE 68; RESP 18; TEMP 36.5; O2SAT 100
[2024-09-23 09:11] VITALS: PULSE 74
[2024-09-23] MEDS: hydroCHLOROthiazide 12.5 MG CAPSULE 25 MG PO (09:11)
[2024-09-23] MEDS: NEBIVOLOL HCL 5 MG TABLET PO (09:11)
[2024-09-23] MEDS: AMOXICILLIN/CLAVULANATE K 875-125 MG TAB 1 TABLET PO ×2 (09:11→21:28)
[2024-09-23] MEDS: ENOXAPARIN 40 MG/0.4 ML SYRINGE SUB-Q (09:12)
[2024-09-23] MEDS: ACETAMINOPHEN 325 MG TABLET 650 MG PO (13:42)
[2024-09-23 14:00] VITALS: BP 123/61; PULSE 70; RESP 16; TEMP 36.4; O2SAT 97
--- NOTE | 2024-09-23 18:48 | P.PNIM_ITS ---
Progress Note: A&P Assessment and Plan (1) Pneumonia: Qualifiers: Laterality: left Lung location: upper lobe of lung Pneumonia type: due to unspecified organism Qualified Code(s): J18.9 - Pneumonia, unspecified organism Code(s): J18.9 - Pneumonia, unspecified organism Status: Acute Assessment and Plan: * Chest x-ray showing possible pneumonia * Rocephin discontinued * Continue Augmentin and doxycycline * urine strep and urine Legionella obtained and pending * continue DuoNebs as needed * continue incentive spirometry * PT and OT ordered * Case coordination following for outpatient rehab needs (2) Deficit in activities of daily living (ADL): Code(s): Z78.9 - Other specified health status Status: Acute Assessment and Plan: * PT and OT ordered * Case coordination following for outpatient rehab needs (3) Generalized weakness: Code(s): R53.1 - Weakness Status: Acute Assessment and Plan: * continue PT and OT * Continue fall precautions (4) Essential (primary) hypertension: Code(s): I10 - Essential (primary) hypertension Status: Chronic Assessment and Plan: * blood pressure ranging 123/61 * Increased Bystolic 2.5<5 mg daily. Could consider switching to carvedilol outpatient if better control needed * decrease hydrochlorothiazide 25mg<12.5mg daily. Sodium slightly low and overall high risk for falls. * Goal blood pressure for age >80 is <160 (5) Rib pain on left side: Code(s): R07.81 - Pleurodynia Status: Acute Assessment and Plan: Pain to left lower chest/rib. Possibly pleuritic Lidocaine patch, tylenol prn Check CRP Time Spent With Patient Time: 45 minutes Subjective Date/time seen: 09/23/24 18:48 Interval history: Overnight events: Reports left lower rib pain that has gradually improved during the hospitalization. Worse with deep breaths and belching, but otherwise no change when eating meals or significant change with activity. Worked with PT today. No shortness of breath or significant cough. Discharge likely tomorrow pending insurance authorization Hospital course: This is an 79-year-old female who presented to the hospital on 09/18/2024 with generalized weakness and left-sided chest pain. Workup in the hospital included a chest/abdomen/ pelvis CT which shown cardiomegaly with Trace pericardial effusion, left basilar atelectasis versus pneumonia, focal density in the left upper lobe which may be a nodule or focal pneumonia, small sliding hiatus hernia, hepatomegaly, cholelithiasis. Echocardiogram showing normal LV systolic function with an estimated EF of 55-60%, grade 1 diastolic dysfunction, moderate aortic valve sclerosis and stenosis. Initial labs showed a white blood cell count of 14.0, hemoglobin 16.4, hematocrit 51.4, hemoglobin A1c 6.1, alkaline phosphate 196, troponin negative, proBNP 241. A UA was obtained which showed a urine specific gravity of 1.039, trace ketone, trace leukocytes, 11-20 urine WBC, rare bacteria. MRSA was negative. Urine strep and urine Legionella were obtained and pending. Urine culture was negative. Blood culture showing no growth to date on preliminary read. Patient was started on Rocephin and doxycycline. She was transitioned to Augmentin. Exam Narrative: General: In no acute distress, well nourished Cardiac: No murmurs or friction rubs, peripheral pulses intact. Respiratory: Lungs clear to auscultation, no adventitious lung sounds, currently on room air Gastrointestinal: soft, non-distended, non-tender, normoactive bowel sounds. : voiding without difficulty clear conchita urine, currently has pure wick in place Neuro: Alert and oriented x4 Objective Data Vital Signs Vital Signs: Vital Signs - 24 hr 09/22/24 22:26 09/22/24 20:22 09/23/24 06:00 Temperature 98.2 F 97.7 F Pulse Rate 66 68 Respiratory Rate 18 18 Blood Pressure 167/64 H 153/66 H Pulse Oximetry 97 100 Oxygen Delivery Room Air 09/23/24 09:11 09/23/24 09:10 09/23/24 14:00 Temperature 97.6 F Pulse Rate 74 70 Respiratory Rate 16 Blood Pressure 123/61 Pulse Oximetry 97 Oxygen Delivery Room Air Intake/Output Intake/Output: Intake & Output 09/20/24 09/21/24 09/22/24 09/23/24 23:59 23:59 23:59 23:59 Intake Total 1300 2020 2770 2320 Output Total 893 836 0464 1000 Balance 550 1620 1320 1320 Meds/Results Medications: Active Medications Generic Name Dose Route Start Last Admin Trade Name Freq PRN Reason Stop Dose Admin Acetaminophen 650 mg 09/18/24 19:21 09/23/24 13:42 Acetaminophen 325 Mg Tablet PO 650 mg Q4H PRN Administration Mild Pain (1-3) or Fever Albuterol/Ipratropium 3 ml 09/19/24 09:41 Ipratropium 0.5 Mg/Albuterol Sulfate 2.5 Mg Ampul.Neb 3 Ml INHALATION Q6HRT PRN Wheezing Amoxicillin/Clavulanate Potassium 1 tablet 09/21/24 21:00 09/23/24 09:11 Amoxicillin/Clavulanate K 875-125 Mg Tab PO 1 tablet Q12HR JANE Administration Doxycycline Hyclate 100 mg 09/19/24 06:00 09/23/24 17:37 Doxycycline Hyclate 100 Mg Tablet PO 100 mg Q12H JANE Administration Enoxaparin Sodium 40 mg 09/19/24 09:00 09/23/24 09:12 Enoxaparin 40 Mg/0.4 Ml Syringe SUB-Q 40 mg DAILY JANE Administration Hydrochlorothiazide 25 mg 09/22/24 09:00 09/23/24 09:11 Hydrochlorothiazide 12.5 Mg Capsule PO 25 mg DAILY JANE Administration Nebivolol 5 mg 09/22/24 09:00 09/23/24 09:11 Nebivolol Hcl 5 Mg Tablet PO 5 mg DAILY JANE Administration Polyethylene Glycol 17 gm 09/21/24 11:05 09/23/24 09:12 Polyethylene Glycol 3350 17 Gm Powd.Pack PO Not Given QAM [facility] Radiology Results: ITS Impressions Head CT 09/18/24 17:35 IMPRESSION: No acute intracranial findings. Chest/Abdomen/Pelvis CT 09/18/24 18:20 IMPRESSION: CHEST: 1. Cardiomegaly with pericardial effusion 2. Left basilar atelectasis versus pneumonia with minimal pleural effusion. 3. Focal density in the left upper lobe which may be a nodule or focal pneumonia. Follow-up advised. Three-month CT follow-up advised. ABDOMEN/PELVIS: 1. No evidence of appendicitis, colitis or intestinal obstruction. 2. Cholelithiasis. 3. Small sliding hiatus hernia. 4. Hepatomegaly Labs Labs: Laboratory Results - last 24 hr 09/19/24 09/23/24 17:42 05:00 WBC 9.3 RBC 5.45 H Hgb 15.5 H Hct 49.4 H MCV 90.6 MCH 28.4 MCHC 31.4 L RDW 13.9 Plt Count 156 MPV 9.2 Immature Gran % (Auto) 0.3 Neut % (Auto) 73.4 H Lymph % (Auto) 15.7 L [place] % (Auto) 8.0 Eos % (Auto) 2.3 Baso % (Auto) 0.3 Lymph # (Auto) 1.46 [place] # (Auto) 0.7 H Eos # (Auto) 0.2 Baso # (Auto) 0.0 Abs Immat Gran (auto) 0.03 Absolute Neuts (auto) 6.8 H Absolute Nucleated RBC 0.000 Nucleated RBC % 0.0 Sodium 133 L Potassium 3.9 Chloride 101 Carbon Dioxide 30 Anion Gap 2 L BUN 21 H Creatinine 0.70 Estim Creat Clear Calc 60 Estimated GFR > 60 Glucose 109 Calcium 9.9 Magnesium 2.2 Total Bilirubin 1.0 AST 41 H ALT 47 H Alkaline Phosphatase 129 H Total Protein 6.0 L Albumin 3.3 L Urine Pneumococcal Ag Not detected Quality VTE Prophylaxis VTE prophylaxis: pharmacologic ordered (Lovenox) Hospitalist MIPS Advance Care Plan I have confirmed that the patient's Advanced Care Plan is present, code status is documented, or surrogate decision maker is listed in patient medical record.: Yes Medication Reconciliation I have utilized all available resources to obtain, update and review the patients current medications (includes all prescriptions, OTC, herbals, cannabis, and nutritional supplements).: Yes
[2024-09-23 21:44] VITALS: BP 149/60; PULSE 68; RESP 20; TEMP 36.6; O2SAT 97
[2024-09-24] MEDS: DOXYCYCLINE HYCLATE 100 MG TABLET PO ×2 (05:12→17:15)
[2024-09-24 06:00] VITALS: BP 170/60; PULSE 67; RESP 18; TEMP 36.5; O2SAT 99
[2024-09-24 07:10] LABS: Basophils Absolute Auto 0.1 K/mm3 (0.0-0.1); Basophils Percent Auto 0.5 % (0.2-1.2); Eosinophils Absolute Auto 0.3 K/mm3 (0-0.3); Eosinophils Percent Auto 3.1 % (0-4.4); Hematocrit 47.6 % (37.0-47.0); Immature Granulocyte Absolute 0.03 K/mm3 (0.00-0.031); Immature Granulocyte Percent A 0.3 % (0-0.5); Lymphocytes Absolute Auto 1.77 K/mm3 (0.9-3.2); Lymphocytes Percent Auto 18.8 % (18.3-44.2); Mean Corpuscular HGB Conc 31.5 g/dl (32-36); Mean Corpuscular Hemoglobin 28.4 pg (26-34); Mean Platelet Volume 9.2 fl (7.4-10.4); Monocytes Absolute Auto 0.7 K/mm3 (0.1-0.6); Monocytes Percent Auto 7.7 % (2.6-8.5); Neutrophils Absolute Auto 6.6 K/mm3 (1.3-6.7); Neutrophils Percent Auto 69.6 % (45.5-73.1); Platelet Count Result 197 k/mm3 (150-375); Red Blood Count 5.29 M/mm3 (4.2-5.4); Red Cell Distribution Width 13.9 % (11.5-14.5); White Blood Count 9.4 K/mm3 (4.5-10.0)
[2024-09-24 08:16] LABS: Alanine Aminotransferase 42 U/L (6-35); Albumin Level 3.4 g/dL (3.5-5.1); Alkaline Phosphatase 127 U/L (38-126); Anion Gap 2 mmol/L (4-12); Aspartate Amino Transferase 36 U/L (14-36); Bilirubin,Total 0.8 mg/dL (0.2-1.3); Blood Urea Nitrogen 25 mg/dL (7-17); Calcium 10.4 mg/dL (8.4-10.2); Carbon Dioxide 32 mmol/L (22-30); Chloride 100 mmol/L (98-107); Estimated CRCL calculation 48 ml/min; Estimated Glomerular Filt Rate 60; Glucose 120 mg/dL (65-110); Magnesium 2.3 mg/dL (1.6-2.3); Sodium 134 mmol/L (137-145)
[2024-09-24 09:21] VITALS: PULSE 72
[2024-09-24] MEDS: hydroCHLOROthiazide 12.5 MG CAPSULE PO (09:21)
[2024-09-24] MEDS: AMOXICILLIN/CLAVULANATE K 875-125 MG TAB 1 TABLET PO ×2 (09:21→20:53)
[2024-09-24] MEDS: NEBIVOLOL HCL 5 MG TABLET PO (09:21)
[2024-09-24] MEDS: ENOXAPARIN 40 MG/0.4 ML SYRINGE SUB-Q (09:22)
[2024-09-24] MEDS: LIDOCAINE 5% PATCH 1 PATCH TRANSDERM (09:22)
[2024-09-24] MEDS: ACETAMINOPHEN 325 MG TABLET 650 MG PO ×2 (09:22→17:15)
--- NOTE | 2024-09-24 12:20 | P.PNIM_ITS ---
Progress Note: A&P Assessment and Plan (1) Pneumonia: Qualifiers: Laterality: left Lung location: upper lobe of lung Pneumonia type: due to unspecified organism Qualified Code(s): J18.9 - Pneumonia, unspecified organism Code(s): J18.9 - Pneumonia, unspecified organism Status: Acute Assessment and Plan: * Chest x-ray showing possible pneumonia * Rocephin discontinued * Continue Augmentin and doxycycline * urine strep and urine Legionella obtained and pending * continue DuoNebs as needed * continue incentive spirometry * PT and OT ordered * Case coordination following for outpatient rehab needs 09/24/24: * Continue oral Augmentin and Doxycycline. * Stable respiratory status. * Continue to monitor VS * Strep Pneumo normal, Legionella pending. (2) Deficit in activities of daily living (ADL): Code(s): Z78.9 - Other specified health status Status: Acute Assessment and Plan: * PT and OT ordered * Case coordination following for outpatient rehab needs 09/24/24: * Recommended for pt to go to rehab. * Awaiting to hear from [facility] for bed. (3) Generalized weakness: Code(s): R53.1 - Weakness Status: Acute Assessment and Plan: * continue PT and OT * Continue fall precautions 09/24/24: * Non-focal. * Recommend following recommendations of PT/OT for placement. (4) Essential (primary) hypertension: Code(s): I10 - Essential (primary) hypertension Status: Chronic Assessment and Plan: * blood pressure ranging 117/68-184/66 * increase Bystolic to 5 mg daily * increase hydrochlorothiazide to 25 mg daily 09/24/24: * BP running 140s-160s/70s * Continue current meds and continue to monitor BP. * Consider changing doses if continued elevation of BP. Time Spent With Patient Time with patient: 25 - 35 minutes Subjective Date/time seen: 09/24/24 12:20 Interval history: This pt was examined today at the bedside in interval assessment since being admitted to the hospital for increased weakness and fall. She has done well thus far, but due to her weakness and requiring repetative cues for transfer techniques as well as one assist with a walker to maintain safety, coupled with continuous weakness and decreased awareness of safety with attempting to ambulate, she has been recommended for acute rehab. We are awaiting to hear from [facility] on bed and from insurance. She has been started on oral abx for her UTI. Her urine was negative for strep pneumoniae and legionella is still pending. She has no new complaints or symptoms to discuss today. Review of Systems Review of Systems: All systems reviewed & are unremarkable except as noted in HPI and below Constitutional: Constitutional: Reports as per HPI and Reports no additional constitutional complaints Eyes: Eyes: Reports as per HPI and Reports no additional eye complaints ENT: Reports system reviewed and no additional complaints, except as documented and Reports as per HPI Cardiovascular: Cardiovascular: Reports as per HPI and Reports no additional cardiovascular complaints Respiratory: Respiratory: Reports as per HPI and Reports no additional respiratory complaints Gastrointestinal: Gastrointestinal: Reports as per HPI and Reports no additional gastrointestinal complaints Genitourinary: Genitourinary: Reports no additional female genitourinary complaints and Reports as per HPI Musculoskeletal: Musculoskeletal: Reports no additional musculoskeletal complaints and Reports as per HPI Integumentary/Breasts: Skin/Breast: Reports system reviewed and no additional complaints, except as docu and Reports as per HPI Neurologic: Reports system reviewed and no additional complaints, except as documented and Reports as per HPI Psychiatric: Psychiatric: Reports no additional psychiatric complaints and Reports as per HPI Exam Narrative: CONSTITUTIONAL: Elderly female pt lying supine in bed at this time in no acute distress. HENMT: Atraumatic and normocephalic. 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 MMM, Patent oropharynx without any edema, erythema or exudate. EYES: PERRLA NECK: Supple AROM without any deficits. RESPIRATORY: Diminished in the bases with faint crackles. CARDIOVASCULAR: RRR, S1 and S2 present. No S3, S4, m,r,g,h or displacement of PMI GI: Soft, NT, BS+x4 quads without any rigidity, guarding or rebound. : Deferred SKIN: Pale, warm, dry NEURO: No focal deficits, but generalized weakness is present. EXTREMITIES: Passive FROM present in all four extremities and AROM present in the Upper extremities. PSYCH: A&Ox4 Objective Data Vital Signs Vital Signs: Vital Signs - 24 hr 09/23/24 14:00 09/23/24 21:32 09/23/24 21:44 Temperature 97.6 F 98 F Pulse Rate 70 68 Respiratory Rate 16 20 Blood Pressure 123/61 149/60 H Pulse Oximetry 97 97 Oxygen Delivery Room Air 09/24/24 06:00 09/24/24 09:21 09/24/24 09:22 Temperature 97.7 F Pulse Rate 67 72 Respiratory Rate 18 Blood Pressure 170/60 H Pulse Oximetry 99 Oxygen Delivery Room Air Intake/Output Intake/Output: Intake & Output 09/21/24 09/22/24 09/23/24 09/24/24 23:59 23:59 23:59 23:59 Intake Total 2019 2770 2320 540 Output Total 400 1450 1000 700 Balance 1620 1320 1320 -160 Meds/Results Medications: Active Medications Generic Name Dose Route Start Last Admin Trade Name Freq PRN Reason Stop Dose Admin Acetaminophen 650 mg 09/18/24 19:21 09/24/24 09:22 Acetaminophen 325 Mg Tablet PO 650 mg Q4H PRN Administration Mild Pain (1-3) or Fever Albuterol/Ipratropium 3 ml 09/19/24 09:41 Ipratropium 0.5 Mg/Albuterol Sulfate 2.5 Mg Ampul.Neb 3 Ml INHALATION Q6HRT PRN Wheezing Amoxicillin/Clavulanate Potassium 1 tablet 09/21/24 21:00 09/24/24 09:21 Amoxicillin/Clavulanate K 875-125 Mg Tab PO 1 tablet Q12HR JANE Administration Doxycycline Hyclate 100 mg 09/19/24 06:00 09/24/24 05:12 Doxycycline Hyclate 100 Mg Tablet PO 100 mg Q12H JANE Administration Enoxaparin Sodium 40 mg 09/19/24 09:00 09/24/24 09:22 Enoxaparin 40 Mg/0.4 Ml Syringe SUB-Q 40 mg DAILY JANE Administration Hydrochlorothiazide 12.5 mg 09/24/24 09:00 09/24/24 09:21 Hydrochlorothiazide 12.5 Mg Capsule PO 12.5 mg DAILY JANE Administration Lidocaine 1 patch 09/24/24 09:00 09/24/24 09:22 Lidocaine 5% Patch TRANSDERM 1 patch DAILY JANE Administration Nebivolol 5 mg 09/22/24 09:00 09/24/24 09:21 Nebivolol Hcl 5 Mg Tablet PO 5 mg DAILY JANE Administration Polyethylene Glycol 17 gm 09/21/24 11:05 09/24/24 09:23 Polyethylene Glycol 3350 17 Gm Powd.Pack [facility] [place] Rad[facility] Results: ITS Impressions Head CT 09/18/24 17:35 IMPRESSION: No acute intracranial findings. Chest/Abdomen/Pelvis CT 09/18/24 18:20 IMPRESSION: CHEST: 1. Cardiomegaly with pericardial effusion 2. Left basilar atelectasis versus pneumonia with minimal pleural effusion. 3. Focal density in the left upper lobe which may be a nodule or focal pneumonia. Follow-up advised. Three-month CT follow-up advised. ABDOMEN/PELVIS: 1. No evidence of appendicitis, colitis or intestinal obstruction. 2. Cholelithiasis. 3. Small sliding hiatus hernia. 4. Hepatomegaly Labs Labs: Laboratory Results - last 24 hr 09/24/24 06:17 WBC 9.4 RBC 5.29 Hgb 15.0 Hct 47.6 H MCV 90.0 MCH 28.4 MCHC 31.5 L RDW 13.9 Plt Count 197 MPV 9.2 Immature Gran % (Auto) 0.3 Neut % (Auto) 69.6 Lymph % (Auto) 18.8 [place] % (Auto) 7.7 Eos % (Auto) 3.1 Baso % (Auto) 0.5 Lymph # (Auto) 1.77 [place] # (Auto) 0.7 H Eos # (Auto) 0.3 Baso # (Auto) 0.1 Abs Immat Gran (auto) 0.03 Absolute Neuts (auto) 6.6 Absolute Nucleated RBC 0.000 Nucleated RBC % 0.0 Sodium 134 L Potassium 4.0 Chloride 100 Carbon Dioxide 32 H Anion Gap 2 L BUN 25 H Creatinine 0.90 Estim Creat Clear Calc 48 Estimated GFR 60 Glucose 120 H Calcium 10.4 H Magnesium 2.3 Total Bilirubin 0.8 AST 36 ALT 42 H Alkaline Phosphatase 127 H Total Protein 7.0 Albumin 3.4 L Quality VTE Prophylaxis VTE prophylaxis: pharmacologic ordered (Lovenox)
[2024-09-24 14:00] VITALS: BP 126/56; PULSE 72; RESP 18; TEMP 36.2; O2SAT 96
[2024-09-24 19:59] VITALS: BP 136/71; PULSE 65; RESP 20; TEMP 36.5; O2SAT 97
[2024-09-25 04:36] VITALS: BP 187/62; PULSE 64; RESP 20; TEMP 37; O2SAT 99
[2024-09-25] MEDS: DOXYCYCLINE HYCLATE 100 MG TABLET PO (05:07)
[2024-09-25 06:02] LABS: Basophils Percent Auto 0.5 % (0.2-1.2); Eosinophils Absolute Auto 0.2 K/mm3 (0-0.3); Eosinophils Percent Auto 2.2 % (0-4.4); Hematocrit 47.9 % (37.0-47.0); Hemoglobin 15.4 g/dL (12.0-15.0); Immature Granulocyte Absolute 0.03 K/mm3 (0.00-0.031); Immature Granulocyte Percent A 0.4 % (0-0.5); Lymphocytes Percent Auto 19.8 % (18.3-44.2); Mean Corpuscular HGB Conc 32.2 g/dl (32-36); Mean Corpuscular Hemoglobin 29.1 pg (26-34); Mean Corpuscular Volume 90.4 fl (80-100); Mean Platelet Volume 10.1 fl (7.4-10.4); Monocytes Absolute Auto 0.7 K/mm3 (0.1-0.6); Monocytes Percent Auto 8.3 % (2.6-8.5); Neutrophils Absolute Auto 5.6 K/mm3 (1.3-6.7); Neutrophils Percent Auto 68.8 % (45.5-73.1); Platelet Count Result 205 k/mm3 (150-375); Red Cell Distribution Width 14.1 % (11.5-14.5); White Blood Count 8.1 K/mm3 (4.5-10.0)
[2024-09-25 06:08] LABS: Alanine Aminotransferase 44 U/L (6-35); Albumin Level 3.4 g/dL (3.5-5.1); Alkaline Phosphatase 110 U/L (38-126); Anion Gap 1 mmol/L (4-12); Aspartate Amino Transferase 35 U/L (14-36); Bilirubin,Total 0.8 mg/dL (0.2-1.3); Blood Urea Nitrogen 23 mg/dL (7-17); Carbon Dioxide 34 mmol/L (22-30); Chloride 102 mmol/L (98-107); Estimated CRCL calculation 53 ml/min; Estimated Glomerular Filt Rate > 60; Glucose 104 mg/dL (65-110); Magnesium 2.2 mg/dL (1.6-2.3); Potassium 3.8 mmol/L (3.4-5.0); Sodium 137 mmol/L (137-145)
[2024-09-25 08:00] VITALS: O2SAT 99
[2024-09-25] MEDS: ENOXAPARIN 40 MG/0.4 ML SYRINGE SUB-Q (08:17)
[2024-09-25] MEDS: AMOXICILLIN/CLAVULANATE K 875-125 MG TAB 1 TABLET PO (08:17)
[2024-09-25 08:18] VITALS: PULSE 70
[2024-09-25] MEDS: hydroCHLOROthiazide 12.5 MG CAPSULE PO (08:18)
[2024-09-25] MEDS: NEBIVOLOL HCL 5 MG TABLET PO (08:18)
[2024-09-25] MEDS: LIDOCAINE 5% PATCH 1 PATCH TRANSDERM (08:19)
--- NOTE | 2024-09-25 12:34 | P.DS_ITS ---
DS: Admitting Diagnosis Discharge Date 09/25/2024 Admitting Diagnosis Pneumonia, Deficit in ADLs, Generalized weakness, Prediabetes, HTN DS: Discharge Diagnosis Discharge Diagnosis (1) Pneumonia: Qualifiers: Laterality: left Lung location: upper lobe of lung Pneumonia type: due to unspecified organism Qualified Code(s): J18.9 - Pneumonia, unspecified organism Code(s): J18.9 - Pneumonia, unspecified organism Status: Acute Assessment and Plan: * Chest x-ray showing possible pneumonia * Rocephin discontinued * Continue Augmentin and doxycycline * urine strep and urine Legionella obtained and pending * continue DuoNebs as needed * continue incentive spirometry * PT and OT ordered * Case coordination following for outpatient rehab needs 09/24/24: * Continue oral Augmentin and Doxycycline. * Stable respiratory status. * Continue to monitor VS * Strep Pneumo normal, Legionella pending. 09/25/24: * Today is final day of antibiotics. No further treatment is needed upon discharge. * Pt is stable with regards to her respiratory status and is not requiring any supplemental oxygen. (2) Deficit in activities of daily living (ADL): Code(s): Z78.9 - Other specified health status Status: Acute Assessment and Plan: * PT and OT ordered * Case coordination following for outpatient rehab needs 09/24/24: * Recommended for pt to go to rehab. * Awaiting to hear from Insurance and [facility] for bed. 09/25/24: * Insurance denying her for placement for rehab. * Pt agreeable to discharge with Home health at this time. (3) Generalized weakness: Code(s): R53.1 - Weakness Status: Acute Assessment and Plan: * continue PT and OT * Continue fall precautions 09/24/24: * Non-focal. * Recommend following recommendations of PT/OT for placement. 09/25/24: * Discharge to home with home health. (4) Essential (primary) hypertension: Code(s): I10 - Essential (primary) hypertension Status: Chronic Assessment and Plan: * blood pressure ranging 117/68-184/66 * increase Bystolic to 5 mg daily * increase hydrochlorothiazide to 25 mg daily 09/24/24: * BP running 140s-160s/70s * Continue current meds and continue to monitor BP. * Consider changing doses if continued elevation of BP. 09/25/24: * BP running 130s-180s/60s-70s. * Follow up with PCP Plan Discharge to home today with home health. DS: Summary Hospital Course Reason for hospitalization: PNA and weakness Hospital Course: This 79 year old female pt with PMH of HTN, HLD, pre diabetes, and previous resection of brain tumor was admitted to the hospital September 18 for generalized weakness. To presenting to the emergency room it was found she had left upper lobe pneumonia. This subsequently was complains of having pain on the left side of her chest only at her waist. She endorse that she had not been able to eat for several days and she had not been able to get out of the chair due to weakness. When she did then get out of the chair she fell, prompting evaluation at the emergency room. Initial ER course showed leukocytosis at 14.0, head CT showed an old small lacunar infarct in right basal ganglia encephalomalacia. There was a right cerebellar area from previous occipital bone tumor resection that was noted. CT chest abdomen pelvis indicated a left upper lobe pneumonia. Patient was admitted Hospital, initiated on antibiotics and evaluated by Physical therapy. Patient has now finished a complete course of antibiotics. In addition she has been evaluated by Physical therapy and was recommended for home health versus rehab. Patient did initially agree to rehab placement, however due to her progression with home health is now prefer that patient discharged home with home health that she has made improvements. Patient is stable, not requiring any supplemental oxygenation or any further needs at this time. Status at Discharge Cognitive/behavioral status at discharge: At baseline Functional status at discharge: uses cane/walker Overall status at discharge: patient is progressing back to baseline Time Spent with Patient Time attestation: Total time spent providing and/or coordinating discharge services: Time spent: Greater than 30 minutes Exam Narrative: CONSTITUTIONAL: Elderly female pt lying supine in bed at this time in no acute distress. HENMT: Atraumatic and normocephalic. 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 MMM, Patent oropharynx without any edema, erythema or exudate. EYES: PERRLA NECK: Supple AROM without any deficits. RESPIRATORY: Diminished in the bases with faint crackles. CARDIOVASCULAR: RRR, S1 and S2 present. No S3, S4, m,r,g,h or displacement of PMI GI: Soft, NT, BS+x4 quads without any rigidity, guarding or rebound. : Deferred SKIN: Pale, warm, dry NEURO: No focal deficits, but generalized weakness is present. EXTREMITIES: Passive FROM present in all four extremities and AROM present in the Upper extremities. PSYCH: A&Ox4 DS: Data Data Completed and Pending Completed studies during hospitalization: ITS Impressions Head CT 09/18/24 17:35 IMPRESSION: No acute intracranial findings. Chest/Abdomen/Pelvis CT 09/18/24 18:20 IMPRESSION: CHEST: 1. Cardiomegaly with pericardial effusion 2. Left basilar atelectasis versus pneumonia with minimal pleural effusion. 3. Focal density in the left upper lobe which may be a nodule or focal pneumonia. Follow-up advised. Three-month CT follow-up advised. ABDOMEN/PELVIS: 1. No evidence of appendicitis, colitis or intestinal obstruction. 2. Cholelithiasis. 3. Small sliding hiatus hernia. 4. Hepatomegaly Labs on day of discharge: Labs from last 24 hours 09/25/24 05:30 WBC 8.1 RBC 5.30 Hgb 15.4 H Hct 47.9 H MCV 90.4 MCH 29.1 MCHC 32.2 RDW 14.1 Plt Count 205 MPV 10.1 Immature Gran % (Auto) 0.4 Neut % (Auto) 68.8 Lymph % (Auto) 19.8 [place] % (Auto) 8.3 Eos % (Auto) 2.2 Baso % (Auto) 0.5 Lymph # (Auto) 1.60 [place] # (Auto) 0.7 H Eos # (Auto) 0.2 Baso # (Auto) 0.0 Abs Immat Gran (auto) 0.03 Absolute Neuts (auto) 5.6 Absolute Nucleated RBC 0.000 Nucleated RBC % 0.0 Sodium 137 Potassium 3.8 Chloride 102 Carbon Dioxide 34 H Anion Gap 1 L BUN 23 H Creatinine 0.80 Estim Creat Clear Calc 53 Estimated GFR > 60 Glucose 104 Calcium 10.0 Magnesium 2.2 Total Bilirubin 0.8 AST 35 ALT 44 H Alkaline Phosphatase 110 Total Protein 7.0 Albumin 3.4 L Discharge Plan Discharge Attending physician on discharge: Minda Nixon Discharging Clinician: Minda Nixon Anticipated Discharge Date/Time: 09/21/24 09:44 Patient Disposition: Home Health Service Activity: as tolerated Diet: as tolerated and heart healthy Discharge Instructions: Follow up with primary care doctor in 1 week. You have successfully completed all antibiotics and will not need any additional medications for home. Care Coordination: Patient to have [facility] for PT/OT eval and treat, and half-way. Their phone number is [phone], if you have any questions. They will contact you to schedule their first visit. RN Please fax discharge instructions to [phone]. Patient Instructions: Community Acquired Pneumonia (DC) Patient Language: Cymraes Stand Alone Forms: General Discharge Information Follow-up/Referrals: Jer Brown, [Primary Care Provider] - 1 Week Discharge Medications: New nebivolol [Bystolic] 5 mg Tablet 5 mg PO DAILY Qty: 30 0RF Continued aspirin 81 mg tablet 81 mg PO DAILY hydrochlorothiazide 12.5 mg tablet 12.5 mg PO DAILY Qty: 30 5RF Discontinued nebivolol [Bystolic] 2.5 mg tablet 2.5 mg PO DAILY Qty: 30 2RF Date of admission: 09/19/24 08:54 Primary Care Provider: Jer Brown Admitting Provider: Troy Springer Attending physician on admission: iMnda Nixon Condition: Improved Quality VTE Prophylaxis VTE prophylaxis: mechanical ordered Hospitalist MIPS Heart Failure (Exclusion) Patient has history of Heart Transplant or Left Ventricular Assistive Device?: No IF YES, STOP HERE Heart Failure (Qualifier) Patient has current or prior documentation of LVEF less than or equal to 40%, or mod/servere depressed LVSF?: No IF NO, STOP HERE
[2024-09-25 13:37] VITALS: BP 149/54; PULSE 68; RESP 16; TEMP 36.5; O2SAT 98
[2024-09-25] MEDS: INFLUENZA VACCINE HIGH DOSE (>64) 180 MCG/0.5 ML SYRINGE IM (14:25)
--- NOTE | 2024-09-25 18:36 | PCCCNOTE ---
1836-Called to the pt's room with the son present. Pt's son was upset stating, I don't understand this. If a ambulance was approved to transport my mom to rehab how am I supposed to get my mom home? She needs rehab, she has to use a walker to walk now! . Re-informed pt the Auth for rehab was denied and HHPT was set up in the home. After much discussion and allowed the pt to vent, they became agreeable to discharge to home with home health services. Also gave the contact info for the local DHS office to apply for medicaid. Floor nurse was update on the status of the discussion.-opal.
[2024-10-02 03:08] LABS: Legionella pneumophila Ag Ur NOT DETECTED
== END 2024-09-25 18:51 | disposition home health service (06) ==
LOC: ANHED 18:05 → ANH2MED 22:55
PROVIDERS: Nurse Practitioner; Physician Assistant; Admitting Provider Internal Medicine; Emergency Provider Preventive Medicine Aerospace Medicine; PCP Internal Medicine; Visit Provider Nurse Practitioner Adult Health
DX: J18.9 Pneumonia, unspecified organism (principal); N39.0 Urinary tract infection, site not specified; R53.1 Weakness; Z78.9 Other specified health status; I10 Essential (primary) hypertension; I44.0 Atrioventricular block, first degree; E78.5 Hyperlipidemia, unspecified; R73.03 Prediabetes; R07.89 Other chest pain; K44.9 Diaphragmatic hernia without obstruction or gangrene; R16.0 Hepatomegaly, not elsewhere classified; K80.20 Calculus of gallbladder without cholecystitis without obstruction; I35.8 Other nonrheumatic aortic valve disorders; I35.0 Nonrheumatic aortic (valve) stenosis; G93.89 Other specified disorders of brain; N39.3 Stress incontinence (female) (male); Z23 Encounter for immunization; Z79.82 Long term (current) use of aspirin; Z79.899 Other long term (current) drug therapy; Z96.1 Presence of intraocular lens; Z98.49 Cataract extraction status, unspecified eye; Z85.3 Personal history of malignant neoplasm of breast; Z90.11 Acquired absence of right breast and nipple; Z86.011 Personal history of benign neoplasm of the brain; Z91.81 History of falling
CPT/HCPCS: 36415; 70450; 71250; 74176; 80053; 81001; 82550; 83036; 83735; 83880; 84484; 85025; 85055; 85610; 85730; 87040; 87086; 87449; 87641; 87899; 90471; 90662; 93005; 93306; 94640; 96365; 96372; 97110; 97116; 97161; 97165; 97530; 97535; 99285; A9270; G0008; G0378; J0696; J1650

== ENCOUNTER 2025-07-25 16:13 | Outpatient (CLI) | payer MEDICARE, SELFPAY ==
[2025-07-25 16:27] LABS: Hematocrit 53.3 % (37.0-47.0); Hemoglobin 17.1 g/dL (12.0-15.0); Immature Granulocyte Percent A 0.3 % (0-0.5); Lymphocytes Absolute Auto 2.08 K/mm3 (0.9-3.2); Mean Corpuscular HGB Conc 32.1 g/dl (32-36); Mean Corpuscular Hemoglobin 28.7 pg (26-34); Mean Corpuscular Volume 89.6 fl (80-100); Nucleated Red Blood Cells Absolute Auto 0.000 K/mm3 (0.0-0.012); Nucleated Red Blood Cells Perc 0.0 % (0.0-0.2); Platelet Count Result 161 k/mm3 (150-375); Red Blood Count 5.95 M/mm3 (4.2-5.4); White Blood Count 9.9 K/mm3 (4.5-10.0)
[2025-07-25 16:53] LABS: Alanine Aminotransferase 20 U/L (6-35); Albumin Level 4.0 g/dL (3.5-5.1); Alkaline Phosphatase 107 U/L (38-126); Anion Gap 6 mmol/L (4-12); Aspartate Amino Transferase 25 U/L (14-36); Bilirubin,Total 1.1 mg/dL (0.2-1.3); Blood Urea Nitrogen 23 mg/dL (7-17); Calcium 9.9 mg/dL (8.4-10.2); Carbon Dioxide 31 mmol/L (22-30); Chloride 99 mmol/L (98-107); Estimated Glomerular Filt Rate 44; Glucose 109 mg/dL (65-110); Potassium 3.7 mmol/L (3.4-5.0); Sodium 136 mmol/L (137-145); Total Protein 7.6 g/dL (6.3-8.2)
== END 2025-07-25 16:14 | disposition home or self-care (01) ==
LOC: ANHLAB 16:14
PROVIDERS: PCP Internal Medicine; Visit Provider Clinical Nurse Specialist
DX: D75.1 Secondary polycythemia (principal); M62.81 Muscle weakness (generalized)
CPT/HCPCS: 36415; 80053; 85025

== ENCOUNTER 2025-08-25 13:43 | Outpatient (CLI) | payer MEDICARE, SELFPAY ==
--- OUTSIDE RECORDS SUMMARY | 2025-08-25 13:52 | XMS_ITS | Clinical Summary ---
Author Organization [facility] Address [address] [place] [address] Care Team Providers Care Bakery Supervisor Name Role Phone Horace Whitt MD Unavailable [phone] Rosa Oliva NP Primary Care Provider [phone] Allergies Active Allergy Reactions Criticality Noted Date Comments Vancomycin Redness Low Medications amLODIPine (NORVASC) 5 mg tabletIndicatio ns:hypertension Take 1 tablet (5 mg total) by mouth chemical tester before breakfast Active rosuvastatin (CRESTOR) 5 mg tabletIndicatio ns:hyperlipidem ia Take 1 tablet (5 mg total) by mouth chemical tester before breakfast 2 Active losartan-hydroC HLOROthiazide (HYZAAR) 100-12.5 mg per tabletIndicatio ns:hypertension Take 1 tablet by mouth chemical tester before breakfast 2 Active ibuprofen (ADVIL ORAL) Take 2 tablets by mouth as needed Active oxyCODONE (ROXICODONE) 5 mg immediate release tabletIndicatio ns:Pain Take 1 tablet (5 mg total) by mouth every 4 (four) hours as needed for pain (breakthrough pain) 10 tablet 3 Active Active Problems Problem Noted Date Diagnosed Date Basal cell carcinoma, scalp/neck 08/05/2022 Mass of skin 04/07/2010 Surgical History Surgery Date Site/Laterality Comments TONSILLECTOMY 10/16/1965 - 10/15/1966 HYSTERECTOMY 10/16/1980 - 10/15/1981 CYST REMOVAL unsure of date CRANIECTOMY FOR EXCISION OF ACOUSTIC NEUROMA 10/16/1990 - 10/15/1991 BREAST LUMPECTOMY 10/16/1991 - 10/15/1992 EYE SURGERY Bilateral cataract-unsure of date BREAST RECONSTRUCTION unsure of date OTHER SURGICAL HISTORY multiple surgeries- to recover from Craniectomy with right sided deficits Medical History Medical History Date Comments Hypertension HLD (hyperlipidemia) Family History Medical History Relation Name Comments Hypertension Father Hypertension Mother Anesthesia problems Neg Hx Relation Name Status Comments Father Mother Social History Tobacco Use Types Packs/Day Years Used Date Smoking Tobacco: Never Smokeless Tobacco: Never Tobacco Cessation:Counseling Given: Not Answered Alcohol Use Standard Drinks/Week Comments No 0 (1 standard drink = 0.6 oz pur e alcohol) AUDIT-C Answer Date Recorded Q1: How often do you have a drink containing alcohol? Never 01/23/2023 Q2: How many drinks containi ng alcohol do you have on a typical day when you are drinking? Patient does not drink Q3: How often do you have si x or more drinks on one occasion? Never 01/23/2023 Personal Safety Answer Date Recorded Have you ever been in or are you currently in a harmful physical or emotional relationship or is someone making you feel afraid or unsafe? 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 file Not on file Not on file Last Filed Vital Signs Vital Sign Reading Time Taken Comments Blood Pressure 128/84 01/23/2023 11:00 AM CDT Pulse 67 01/23/2023 11:00 AM CDT Temperature 36.3 C (97.3 F) 01/23/2023 10:00 AM CDT Respiratory Rate 13 01/23/2023 11:00 AM CDT Oxygen Saturation 97% 01/23/2023 11:00 AM CDT Inhaled Oxygen Concentration - - Weight 77.1 kg (170 lb) 01/16/2023 1:15 PM CDT Height 165.1 cm (5' 5) 01/16/2023 1:15 PM CDT Body Mass Index 28.29 01/16/2023 1:15 PM CDT Plan of Treatment Health Maintenance Due Date Last Done Comments Depression Screening 1945 Osteoporosis Screening-Bone Density Scan 1945 DTaP/Tdap/Td Vaccine (1 - Tdap) 1954 Zoster Vaccine (1 of 2) 1993 Well Visit 65+ 2008 Pneumococcal vaccine 65+ (2 of 2 - PCV) 04/09/2021 04/09/2020 Fall Risk Assessment 01/24/2024 01/23/2023 Covid-19 Vaccine ( - season) 2025 08/05/2021, 01/15/2021, 12/17/2020 Influenza Vaccine (#1) 2025 Hepatitis B Screening Completed 04/22/2002, 002 Medical Devices Implanted Type Area Insurance Verification Representative Device Identifier Shelf Expiration Date Model / Serial / Lot Gold Weight Eye Eyelid [employer] Integra 5x4in Mesh Dressing Biological Bovine Collagen [id number] - [id number] Implanted:Qty: 1 on 01/23/2023 by Aman Khoury MD at [facility] [employer] [id number] 11/15/2024 [id number] / / [id number] Insurance MEDICARE [facility] MEDICARE MEDICARE Care Teams Bakery Supervisor Relationship Specialty Start Date End Date Rosa Oliva NP PCP - General Family Medicine 01/10/23 Horace Whitt MD Dermatology 01/04/23
--- OUTSIDE RECORDS SUMMARY | 2025-08-25 13:52 | XMS_ITS | Clinical Summary ---
Author Organization [facility] Ping barber Daniellericardo Address [address] [place] [address] Care Team Providers Care Rapid Transit Operator Name Role Phone Celestino Cooper MD Primary Care Provider Allergies No known active allergies Medications amLODIPine (NORVASC) 5 mg tablet Take 5 mg by mouth daily. Active Active Problems No known active problems Family History Relation Name Status Comments Brother 1 Alive Brother 2 Alive Father Mother Alive Son Alive Social History Tobacco Use Types Packs/Day Years Used Date Smoking Tobacco: Never Smokeless Tobacco: Never Tobacco Cessation:Counseling Given: Not Answered Alcohol Use Standard Drinks/Week Comments Never 0 (1 standard drink = 0.6 oz pur e alcohol) Comments Unknown Sex and Gender Information Value Date Recorded Sex Assigned at Not on file Legal Sex Female 11:12 PM CDT Gender Identity Not on file Sexual Orientation Not on file Last Filed Vital Signs Vital Sign Reading Time Taken Comments Blood Pressure 150/82 04/06/2023 1:54 PM CDT Pulse 100 04/06/2023 1:52 PM CDT Temperature 36.6 C (97.8 F) 04/06/2023 1:52 PM CDT Respiratory Rate 10 04/06/2023 1:52 PM CDT Oxygen Saturation 98% 04/06/2023 1:52 PM CDT Inhaled Oxygen Concentration - - Weight 86.2 kg (190 lb) 04/06/2023 1:52 PM CDT Height 165.1 cm (5' 5) 04/06/2023 1:52 PM CDT Body Mass Index 31.62 04/06/2023 1:52 PM CDT Plan of Treatment Health Maintenance Due Date Last Done Comments DTAP/TDAP/TD VACCINES (1 - Tdap) 1962 PNEUMOCOCCAL VACCINE 50+ YEARS (1 of 1 - PCV) 07/02/19 93 ZOSTER VACCINE (1 of 2) 1993 OSTEOPOROSIS SCREENING 2008 RSV VACCINE (60+ or ) (1 - 1-dose 75+ series) 2018 INFLUENZA VACCINE (#1) 2025 Insurance MEDICARE PART A AND B Care Teams Rapid Transit Operator Relationship Specialty Start Date End Date Celestino Cooper MD [address] [place] [address] PCP - General Family Practice 04/06/23
[2025-08-25 18:47] LABS: Hematocrit 53.6 % (37.0-47.0); Hemoglobin 17.1 g/dL (12.0-15.0); Immature Granulocyte Percent A 0.2 % (0-0.5); Lymphocytes Absolute Auto 1.67 K/mm3 (0.9-3.2); Mean Corpuscular HGB Conc 31.9 g/dl (32-36); Mean Corpuscular Hemoglobin 28.9 pg (26-34); Mean Corpuscular Volume 90.7 fl (80-100); Nucleated Red Blood Cells Absolute Auto 0.000 K/mm3 (0.0-0.012); Nucleated Red Blood Cells Perc 0.0 % (0.0-0.2); Platelet Count Result 168 k/mm3 (150-375); Red Blood Count 5.91 M/mm3 (4.2-5.4); White Blood Count 8.9 K/mm3 (4.5-10.0)
[2025-08-25 19:03] LABS: Alanine Aminotransferase 16 U/L (6-35); Albumin Level 4.1 g/dL (3.5-5.1); Alkaline Phosphatase 97 U/L (38-126); Anion Gap 6 mmol/L (4-12); Aspartate Amino Transferase 28 U/L (14-36); Bilirubin,Total 1.1 mg/dL (0.2-1.3); Blood Urea Nitrogen 21 mg/dL (7-17); Calcium 10.4 mg/dL (8.4-10.2); Carbon Dioxide 31 mmol/L (22-30); Chloride 97 mmol/L (98-107); Estimated Glomerular Filt Rate 48; Glucose 93 mg/dL (65-110); Potassium 4.4 mmol/L (3.4-5.0); Sodium 134 mmol/L (137-145); Total Protein 7.6 g/dL (6.3-8.2)
== END 2025-08-25 13:44 | disposition home or self-care (01) ==
LOC: ANHGOSHLAB 13:44
PROVIDERS: PCP Internal Medicine; Visit Provider Clinical Nurse Specialist
DX: R94.4 Abnormal results of kidney function studies (principal); I10 Essential (primary) hypertension
CPT/HCPCS: 36415; 80053; 85025

== ENCOUNTER 2025-09-04 01:16 | Inpatient (IN) | payer MEDICARE, SELFPAY ==
[2025-09-04] VITALS (20 sets, daily range): BP systolic 123–148; BP diastolic 77–86; PULSE 50–105; RESP 16–26; TEMP 36.2–36.4; O2SAT 89–100; BMI 31.8; BMI 29.7
--- NOTE | 2025-09-04 | ECHO_ITS ---
Patient Info Name: Stefani Ferrara Age: 80 years : 1945 Gender: Female Ht: 65 in Wt: 178 lbs BSA: 1.95 m2 HR: 92 bpm BP: 136 / 84 mmHg Technical Quality: Fair Exam Date: 09/04/2025 10:01 AM Patient Status: I Admit Date: 09/04/2025 Exam Type: CA echo dop color flow w con Complete two-dimensional, color flow and Doppler transthoracic echocardiogram is performed with contrast to opacify the left ventricle and to improve the deliniation of the left ventricle endocardial borders. Staff Referring Physician: Meghan Rosas NP Tool Room Gear Machine Operator: Noa Evans Attending Provider: Gabriel Pa Contrast/Agitated Saline Contrast/Ag. Saline: Definity Amount: 2.00 ml Summary 1. Definity contrast administered improved wall motion interpretation. 2. Left ventricular chamber dimension is normal. 3. There is moderate concentric increased left ventricular wall thickness. 4. D shape ventricular septum consistent with RV pressure overload. 5. Left ventricular systolic function is normal, estimated at 60-65. 6. The left ventricular diastolic function is abnormal. 7. E/e' 13 is mildly elevated. 8. Right ventricular chamber dimension is severely enlarged. 9. Right ventricular systolic function is severely reduced and with abnormal TAPSE 1.2 cm. 10. There is moderate aortic valve sclerosis. 11. There is trace aortic valve regurgitation. 12. The mitral valve has a moderately calcified annulus. 13. There is trace tricuspid valve regurgitation. 14. There is trace pulmonic regurgitation. Left Ventricle Definity contrast administered improved wall motion interpretation. Left ventricular chamber dimension is normal. Left ventricular systolic function is normal, estimated at 60-65. There is moderate concentric increased left ventricular wall thickness. The left ventricular diastolic function is abnormal. E/e' 13 is mildly elevated. D shape ventricular septum consistent with RV pressure overload. Right Ventricle Right ventricular chamber dimension is severely enlarged. Right ventricular systolic function is severely reduced and with abnormal TAPSE 1.2 cm. Left Atria Left atrial chamber dimension is normal. Right Atria Right atrial chamber dimension is normal. Aortic Valve The aortic valve is trileaflet. There is moderate aortic valve sclerosis. There is no aortic valve stenosis. There is trace aortic valve regurgitation. Pulmonic Valve There is trace pulmonic regurgitation. Mitral Valve The mitral valve has a moderately calcified annulus. There is no mitral valve stenosis. There is no mitral valve regurgitation. Tricuspid Valve There is trace tricuspid valve regurgitation. RVSP is not measured due to an inadequate TR jet. Pericardium/Pleural There is no pericardial effusion. Inferior Vena Cava Inferior vena cava is not well visualized. Aorta The aortic root size at the sinus of Valsalva is normal. Left Ventricular Outflow Tract Name Value Normal LVOT 2D LVOT Diameter 2.0 cm LVOT Doppler LVOT Peak Velocity 106 cm/s LVOT Peak Gradient 4 mmHg LVOT Mean Gradient 2 mmHg LVOT VTI 18 cm LVOT Stroke Volume 60 ml LVOT CO 4.8 l/min LVOT CI 2.5 l/min/m2 Pulmonic Valve Name Value Normal RVOT Doppler RVOT Peak Velocity 37 cm/s RVOT Peak Gradient 1 mmHg PV Doppler PV Peak Velocity 66 cm/s PV Peak Gradient 2 mmHg Mitral Valve Name Value Normal MV Diastolic Function MV E Peak Velocity 101 cm/s MV A Peak Velocity 83 cm/s MV E/A 1.2 MV Decel Time (PW) 113 ms MV Annular TDI MV E/e' (Septal) 13.0 MV E/e' (Lateral) 14.8 MV E/e' (Average) 13.9 Tricuspid Valve Name Value Normal TV Regurgitation Doppler TR Peak Velocity 295 cm/s TR Peak Gradient 32 mmHg Aortic Valve Name Value Normal AV Doppler AV Peak Velocity 143 cm/s AV Peak Gradient 8 mmHg AV Area (Cont Eq Albert) 2.4 cm2 AV DI (Albert) 0.74 AV Regurgitation 2D LVOT Area 3.3 cm2 Ventricles Name Value Normal LV Dimensions 2D/MM IVS Diastolic Thickness (2D) 0.8 cm 0.6-1.0 LVID Diastole (2D) 3.9 cm 3.8-5.2 LVIW Diastolic Thickness (2D) 1.3 cm 0.6-0.9 LVID Systole (2D) 2.5 cm 2.2-3.5 LVOT Diameter 2.0 cm LV Mass (2D Cubed) 130.23 g 67.00-162.00 LV Mass Index (2D Cubed) 67 g/m2 43-95 Relative Wall Thickness (2D) 0.66 <=0.42 LV Fractional Shortening/Ejection Fraction 2D/MM LV Fractional Shortening (2D) 36 % 27-45 LV EF (2D Teichholz) 66 % LV Diastolic Volume (4C MOD) 79 ml LV EF (4C MOD) 38 % LV Diastolic Volume (2C MOD) 72 ml LV EF (2C MOD) 37 % LV Diastolic Volume (BP MOD) 74 ml 46-106 LV Diastolic Volume Index (BP MOD) 38 ml/m2 29-61 LV Systolic Volume (BP MOD) 49 ml 14-42 LV Systolic Volume Index (BP MOD) 25 ml/m2 8-24 LV EF (BP MOD) 34 % 54-74 LV Diastolic Length (4C) 7.2 cm LV Systolic Length (4C) 5.9 cm LV Stroke Volume (4C MOD) 30 ml Atria Name Value Normal LA Dimensions LA Volume (4C A-L) 23 ml LA Volume (BP A-L) 38 ml RA Dimensions RA Systolic Major [place] Length (4C) 6.1 cm 2.2-2.8 RA Area (4C) 13.3 cm2 <=18.0 Report Signatures
--- NOTE | ~2025-09-04 | US_ITS ---
EXAMINATION: US venous doppler [facility] DATE: 09/04/2025 09:45 INDICATION: Edema TECHNIQUE: Grayscale ultrasound images without and with compression and Doppler ultrasound images of the bilateral lower extremity veins were obtained. COMPARISON: None. FINDINGS: The visualized portions of right common femoral vein, profunda (deep) femoral vein, femoral vein, popliteal vein, peroneal veins, posterior tibial veins, and greater saphenous vein outflow are patent. The visualized portions of left common femoral vein, profunda femoral vein, femoral vein, popliteal vein, peroneal veins, posterior tibial veins, and greater saphenous vein outflow are patent. IMPRESSION: 1. No deep venous thrombosis. Reviewed, dictated and finalized at location A. E LAYER HELPER
--- NOTE | ~2025-09-04 | XR_ITS ---
Examination: XR chest 2V Clinical History: shortness of breath Comparison: CT chest 09/18/2024 Technique: PA and Lateral Findings: Heart size mildly enlarged. Areas of scarring left base. No acute bony abnormality. Right axillary surgical clips. IMPRESSION: 1. No acute cardiopulmonary findings. Reviewed, dictated and finalized at location R. UTER CUSTOMER SUPPORT SPECIALIST
--- NOTE | ~2025-09-04 | CT_ITS ---
EXAMINATION: CTA chest PE protocol DATE: 09/04/2025 08:58 INDICATION: Rule out PE TECHNIQUE: Computed tomography angiography (CTA) of the chest was performed with 100 mL Omnipaque-350 intravenous contrast timed to evaluate the pulmonary arteries. Coronal maximum intensity projection 3D-reconstructions were created by the technologist. The dose-length product was 529.72 mGy-cm. COMPARISON: September 18, 2024 FINDINGS: Large saddle pulmonary embolus extends into both interlobar arteries and is almost completely occlusive in the right interlobar artery and occludes approximately 75-80% of the left interlobar artery. Emboli extend into both lower lobe pulmonary arteries right worse than left, as well as the right middle and to lesser extent right upper lobe arteries. Heart size mildly enlarged particularly involving the right ventricle and atrium, relative to the left side. No thoracic aortic aneurysm or dissection. Mild bibasilar atelectatic and/or fibrotic changes noted. No consolidation effusion or pneumothorax. No large nodules or masses. No acute process seen in the visualized portions of the upper abdomen. Cholelithiasis and right-sided renal cyst noted. Diffuse degenerative changes throughout the bones. Right-sided mastectomy with collapsed implant unchanged from the previous exam. IMPRESSION: 1. Large saddle pulmonary embolus with near occlusive emboli in both interlobar arteries. Emboli extend into most of the segmental arteries as well, right worse than left. Right-sided ventricular and atrial dilatation concerning for pending decompensation. 2. Other findings as above. Reviewed, dictated and finalized at location A. GER OFFICE IMPRESSION: 1. Large saddle pulmonary embolus with near occlusive emboli in both interlobar arteries. Emboli extend into most of the segmental arteries as well, right wor se than left. Right-sided ventricular and atrial dilatation concerning for pend ing decompensation. 2. Other findings as above.
--- NOTE | 2025-09-04 01:25 | ED_ITS ---
HPI - SOB/Dyspnea General Chief Complaint: Shortness of Breath/Dyspnea Stated Complaint: Difficulty breathing Time Seen by Provider: 09/04/25 01:19 Source: patient and EMS Mode of arrival: EMS Limitations: no limitations History of Present Illness HPI Narrative: This is an 80-year-old female with history of hypertension who presents the ED via EMS for shortness of breath. Patient states that she woke up this evening with severe shortness of breath. She is unsure if she has been sick recently. She has never had this problem before. No history of COPD. She is a nonsmoker. Denies fevers, chills, chest pain. She was started on supplemental oxygen by EMS and she reports that she feels a little bit better at this time. No recent hospitalizations no recent prolonged travels. She is not on any blood thinners. Related Data Home Medications ?Medication ?Instructions ?Recorded ?Confirmed ?Last Taken ?Type aspirin 81 mg tablet 81 mg PO DAILY 07/14/2308/16 Unknown History Allergies Allergy/AdvReac Type Severity Reaction Status Date / Time vancomycin Allergy Severe pt turned Verified 09/04/25 01:37 purple on the operating table Review of Systems 2 Review of Systems: Gen.: Denies fevers or chills Eyes: Denies eye pain or visual change ENT: Denies congestion Respiratory: As per HPI CV: Denies chest pain or palpitations GI: Denies abdominal pain nausea, emesis or diarrhea denies burning, urgency, frequency or hematuria Musculoskeletal: Denies back pain or muscle pain Neuro: Denies numbness, tingling, weakness or focal weakness Skin: Denies rash Except as documented, all other systems reviewed and negative FOR[facility]LY [facility] Past Medical History Medical History CKD (chronic kidney disease) stage 3, GFR 30-59 ml/min Bilateral lower extremity edema Muscle pain First degree heart block (~09/2021) Hyperlipidemia Cataract Prediabetes History of right breast cancer (~2013) Fatigue Heavy sensation of lower extremity Essential (primary) hypertension Stress incontinence Surgical History Surgical History Hx of craniotomy (~04/1999) 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 History of mastectomy right History of cataract removal with insertion of prosthetic lens (~03/2014) History of tonsillectomy History of appendectomy Family History Family History Other Family history of heart disease in male family member before age 55 Social History Social History Social History: Caffeine-tea/soda Smoking status: Never smoker Second hand tobacco smoke exposure: No Alcohol intake: never Substance use: never Substance use type: does not use Do You Feel Safe in your Home?: Yes Lack of Transportation: YES Lack of Food: Often True Current Housing: I Have Housing Concerned About Future Housing: No Difficulty Paying Gas/Electric Bills: YES Difficulty Paying for Meds: No Currently Unemployed: No Education: High School Diploma/GED Difficulty w/ Childcare or Family Care: No Spiritual care concerns: No Exam 2 Narrative: APPEARANCE: No acute distress, nontoxic, resting in bed EYES: EOMI HEENT: Normocephalic, atraumatic, OMM RESPIRATORY: No respiratory distress Clear to auscultation bilaterally with no rhonchi wheezing or rales. CARDIOVASCULAR: Regular rate and rhythm without murmurs rubs or gallops. ABDOMINAL: Soft, nontender, nondistended, no rebound or guarding MUSCULOSKELETAl: Moves all extremities. No clubbing, cyanosis or edema. NEURO: Awake and alert. Following commands, speech normal, no focal deficits SKIN:: Warm, dry. No rashes lesions or abrasions PSYCHIATRIC: Normal affect/mood, Course Vital Signs Vital signs: Vital Signs Temperature 97.6 F 09/04/25 01:18 Pulse Rate 101 H 09/04/25 01:18 Respiratory Rate 16 09/04/25 01:18 Blood Pressure 133/81 09/04/25 01:18 Pulse Oximetry 95 09/04/25 01:18 Oxygen Delivery Nasal Cannula 09/04/25 01:18 Oxygen Flow Rate 2 09/04/25 01:18 Temperature 97.6 F 09/04/25 01:18 Pulse Rate 100 09/04/25 05:03 Respiratory Rate 18 09/04/25 05:03 Blood Pressure 136/84 09/04/25 05:03 Pulse Oximetry 94 09/04/25 05:03 Oxygen Delivery Nasal Cannula 09/04/25 01:28 Oxygen Flow Rate 2 09/04/25 01:28 MDM - SOB/Dyspnea MDM Narrative Medical decision making narrative: 80-year-old female Presenting for shortness of breath. On initial evaluation patient was in no acute distress afebrile, hemodynamic stable. Differentials include but are not limited to: ACS, CHF Exacerbation, COPD exacerbation, PE, PNA, PTX, bronchitis, viral syndrome Notable exam findings: On 2 L nasal cannula satting mid 90s. Tachycardic. I personally reviewed the patient's lab result. Notable lab findings: Leukocytosis at 11. Mildly elevated creatinine at 1.19. Lactic acid elevated at 2.1. Troponin elevated at 0.053. BNP 2700. COVID/flu/RSV negative I personally reviewed the patient's images and interpret as follows: Chest x- ray consistent with CHF I personally reviewed the patient's EKGs: 09/04/2025 at 1:26 a.m.: Sinus tachycardia with first-degree AV block, left atrial enlargement, incomplete right bundle-branch block, poor R-wave progression, no acute ST or T-wave changes Patient's symptoms most likely due to CHF exacerbation. She was given 40 mg Lasix for this. Elevated troponin was most likely due to demand ischemia from her hypoxemia prior to arrival. Patient will require admission for acute hypoxemic respiratory failure due to CHF exacerbation. Case was discussed with hospitalist, recommended starting antibiotics in the setting of leukocytosis as well, will admit the patient. Medical Records Attestation: I reviewed the patient's medical records. Lab Data Attestation: I reviewed the patient's lab results. 09/04/25 01:33 09/04/25 01:33 Labs: Lab Results 09/04/25 Range/Units 01:33 WBC 11.0 H (4.5-10.0) K/mm3 RBC 5.99 H (4.2-5.4) M/mm3 Hgb 17.4 H (12.0-15.0) g/dL Hct 54.0 H (37.0-47.0) % MCV 90.2 (80-100) fl MCH 29.0 (26-34) pg MCHC 32.2 (32-36) g/dl RDW 13.8 (11.5-14.5) % Plt Count 127 L (150-375) k/mm3 MPV 9.9 (7.4-10.4) fl Immature Gran % (Auto) 0.3 (0-0.5) % Neut % (Auto) 85.1 H (45.5-73.1) % Lymph % (Auto) 9.5 L (18.3-44.2) % Dane % (Auto) 3.8 (2.6-8.5) % Eos % (Auto) 1.0 (0-4.4) % Baso % (Auto) 0.3 (0.2-1.2) % Lymph # (Auto) 1.05 (0.9-3.2) K/mm3 Dane # (Auto) 0.4 (0.1-0.6) K/mm3 Eos # (Auto) 0.1 (0-0.3) K/mm3 Baso # (Auto) 0.0 (0.0-0.1) K/mm3 Abs Immat Gran (auto) 0.03 (0.00-0.031) K/mm3 Absolute Neuts (auto) 9.4 H (1.3-6.7) K/mm3 Absolute Nucleated RBC 0.000 (0.0-0.012) K/mm3 Nucleated RBC % 0.0 (0.0-0.2) % % Immature Plt Fraction 3.6 (0.9-11.2) % Sodium 139 (137-145) mmol/L Potassium 4.0 (3.4-5.0) mmol/L Chloride 101 (98-107) mmol/L Carbon Dioxide 29 (22-30) mmol/L Anion Gap 9 (4-12) mmol/L BUN 23 H (7-17) mg/dL Creatinine 1.19 H (0.7-1.0) mg/dL Estim Creat Clear Calc 36 ml/min Estimated GFR 43 L (59 - ) Glucose 194 H (65-110) mg/dL Lactic Acid 2.1 H (0.7-2.0) mmol/L Calcium 10.2 (8.4-10.2) mg/dL Total Bilirubin 0.9 (0.2-1.3) mg/dL AST 27 (14-36) U/L ALT 26 (6-35) U/L Alkaline Phosphatase 136 H (38-126) U/L Troponin I 0.053 H* (0.000-0.034) ng/mL NT-Pro-B Natriuret Pep 2770 H (19.9-100) pg/mL Total Protein 8.0 (6.3-8.2) g/dL Albumin 4.3 (3.5-5.1) g/dL Influenza A (RT-PCR) Negative (Negative) Influenza B (RT-PCR) Negative (Negative) RSV (RT-PCR) Negative (Negative) SARS-CoV-2 RNA (RT-PCR) Negative (Negative) Discharge Plan Discharge Clinical Impression: Acute exacerbation of CHF (congestive heart failure), Acute hypoxemic respiratory failure, Acute non-ST elevation myocardial infarction (NSTEMI), Elevated hemoglobin Patient Disposition: Still a Patient Condition: Stable
--- NOTE | 2025-09-04 01:27 | ECG_ITS ---
Test Date: 2025-09-04 01:26:03 Measurements Intervals [place] Rate: 100 P: 48 WY: 226 QRS: 261 QRSD: 113 T: -5 QT: 336 QTc: 434 Interpretive Statements SINUS TACHYCARDIA WITH FIRST DEGREE AV BLOCK POSSIBLE LEFT ATRIAL ENLARGEMENT [-0.1mV P-WAVE IN V1/V2] INCOMPLETE RIGHT BUNDLE BRANCH BLOCK [90+ ms QRS DURATION, TERMINAL R IN V1/V2, 40+ ms S IN I/aVL/V4/V5/V6] POSSIBLE ANTERIOR MYOCARDIAL INFARCTION , OF INDETERMINATE AGE [30 ms Q WAVE IN V3/V4, OR R < 0.2 mV IN V4] Compared to ECG 09/18/2024 16:19:28 First degree AV block now present Myocardial infarct finding still present Electronically Signed On 09-04-2025 08:36:46 SOURCE INSPECTOR by Nolan Dover M.D.
[2025-09-04] MEDS: IPRATROPIUM 0.5 MG/ALBUTEROL SULFATE 2.5 MG (BASE) AMPUL.NEB 3 ML INHALATION ×2 (01:45→11:08)
[2025-09-04 01:49] LABS: Hematocrit 54.0 % (37.0-47.0); Hemoglobin 17.4 g/dL (12.0-15.0); Immature Granulocyte Percent A 0.3 % (0-0.5); Immature Platelet Fraction Pct 3.6 % (0.9-11.2); Lymphocytes Absolute Auto 1.05 K/mm3 (0.9-3.2); Mean Corpuscular HGB Conc 32.2 g/dl (32-36); Mean Corpuscular Hemoglobin 29.0 pg (26-34); Mean Corpuscular Volume 90.2 fl (80-100); Nucleated Red Blood Cells Absolute Auto 0.000 K/mm3 (0.0-0.012); Nucleated Red Blood Cells Perc 0.0 % (0.0-0.2); Platelet Count Result 127 k/mm3 (150-375); Red Blood Count 5.99 M/mm3 (4.2-5.4); White Blood Count 11.0 K/mm3 (4.5-10.0)
[2025-09-04 01:52] LABS: Alanine Aminotransferase 26 U/L (6-35); Albumin Level 4.3 g/dL (3.5-5.1); Alkaline Phosphatase 136 U/L (38-126); Anion Gap 9 mmol/L (4-12); Aspartate Amino Transferase 27 U/L (14-36); Bilirubin,Total 0.9 mg/dL (0.2-1.3); Blood Urea Nitrogen 23 mg/dL (7-17); Calcium 10.2 mg/dL (8.4-10.2); Carbon Dioxide 29 mmol/L (22-30); Chloride 101 mmol/L (98-107); Estimated CRCL calculation 36 ml/min; Estimated Glomerular Filt Rate 43; Glucose 194 mg/dL (65-110); Potassium 4.0 mmol/L (3.4-5.0); Sodium 139 mmol/L (137-145); Total Protein 8.0 g/dL (6.3-8.2)
[2025-09-04 02:07] LABS: NT Pro B Type Natriuretic Pept 2770 pg/mL (19.9-100); Troponin I 0.053 ng/mL (0.000-0.034)
--- OUTSIDE RECORDS SUMMARY | 2025-09-04 02:21 | XMS_ITS | Clinical Summary ---
Author Organization [facility] Address [address] [place] [address] Care Team Providers Care Cask Maker Name Role Phone Celestino Cooper MD Primary [...] MEDICARE PART A AND B Care Teams Cask Maker Relationship Specialty Start Date End Date Celestino Cooper MD [address] [place] [address] PCP - General Family Practice 04/06/23
--- OUTSIDE RECORDS SUMMARY | 2025-09-04 02:21 | XMS_ITS | Clinical Summary ---
Author Organization [facility] Address [address] [place] [address] Care Team Providers Care Supervisor Polishing Name Role Phone Horace Whitt MD Unavailable [phone] Rosa Oliva NP Primary Care Provider [phone] Allergies Active Allergy Reactions Criticality Noted Date Comments Vancomycin Redness Low Medications amLODIPine (NORVASC) 5 mg tabletIndicatio ns:hypertension Take 1 tablet (5 mg total) by mouth picker feeder before breakfast Active rosuvastatin (CRESTOR) 5 mg tabletIndicatio ns:hyperlipidem ia Take 1 tablet (5 mg total) by mouth picker feeder before breakfast 2 Active losartan-hydroC HLOROthiazide (HYZAAR) 100-12.5 mg per tabletIndicatio ns:hypertension Take 1 tablet by mouth picker feeder before breakfast 2 Active ibuprofen (ADVIL ORAL) [...] on file Legal Sex Female 8:57 AM DOGMAN/WOMAN Gender Identity Female 05/24/2018 12:06 PM CDT [...] 04/22/2002, 002 Medical Devices Implanted Type Area [employer] Consultant Device Identifier Shelf Expiration Date Model / Serial / Lot Gold Weight Eye Eyelid [employer] Integra 5x4in Mesh Dressing Biological Bovine Collagen [id number] - [id number] Implanted:Qty: 1 on 01/23/2023 by Aman Khoury MD at [facility] [employer]ani [id number] 11/15/2024 [id number] / / [id number] Insurance MEDICARE [facility] MEDICARE MEDICARE Care Teams Supervisor Polishing Relationship Specialty Start Date End Date Rosa Oliva NP PCP - General Family Medicine 01/10/23 Horace Whitt MD Dermatology 01/04/23
[2025-09-04 02:32] LABS: Influenza A QL RT-PCR Negative (Negative); Influenza B QL RT-PCR Negative (Negative); RSV RNA, RT-PCR Negative (Negative); SARS-CoV-2 RNA PCR Negative (Negative)
[2025-09-04] MEDS: cefTRIAXone 1 GM in SODIUM CHLORIDE 0.9% IV 50 ML 100 ML IVPB (03:44)
[2025-09-04] MEDS: FUROSEMIDE INJ 40 MG/4 ML VIAL IV PUSH (03:44)
--- NOTE | 2025-09-04 04:05 | WPCEDHO ---
ED Hand Off Checklist All vitals saved: Yes IV Site documented: Yes All med administrations documented: Yes Triage Note Triage Note Pt presents to ED with c/o new 09/04/25 01:18 SOB that began around 2 1/2 hrs ago, pt reports difficulty breathing that woke her out of her sleep. Pt mid 80's in route, once placed on 3L NC pt O2 up to 95%. Pt only reports hx of HTN. Pt denies any CP, dizziness, or cough. Allergies vancomycin Allergy (Severe, Verified 09/04/25 01:37) pt turned purple on the operating table Family History (Last Reviewed 09/04/25 @ 01:26 by Kendrick Maldonado DO) Other Family history of heart disease in male family member before age 55 Administered/Completed Medications Discontinued Medications Albuterol/Ipratropium (Ipratropium 0.5 Mg/Albuterol Sulfate 2.5 Mg (Base) Ampul.Neb 3 Ml) 3 ml INHALATION ONCE STA Stop: 09/04/25 01:24 Last Admin: 09/04/25 01:45 Dose: 3 ml Documented By: DENNIS Furosemide (Furosemide Inj 40 Mg/4 Ml Vial) 40 mg IV PUSH ONCE STA Stop: 09/04/25 02:39 Last Admin: 09/04/25 03:44 Dose: 40 mg Documented By: OBED Ceftriaxone Sodium 1 gm/ (Sodium Chloride) 50 mls @ 100 mls/hr IVPB ONCE STA Stop: 09/04/25 03:28 Last Admin: 09/04/25 03:44 Dose: 100 mls/hr Documented By: OBED Interventions/Assessments IV / Saline Lock, Insert Start: 09/04/25 01:08 Freq: Status: Active Protocol: Document 09/04/25 01:36 OBED (Rec: 09/04/25 01:37 OBED [id number]) IV Assessment Peripheral Access Left Antecubital IV Catheter Access Initiated IV Insertion Date 09/04/25 IV Insertion Time 01:37 Catheter Gauge 20 IV Insertion 1 Attempts IV Site Assessment WNL IV Care and WNL Maintenance PA: Cardiovascular Assessment Start: 09/04/25 01:08 Freq: Status: Active Protocol: Document 09/04/25 01:28 OBED (Rec: 09/04/25 01:29 OBED [id number]) Cardiovascular Assessment Cardiovascular None Symptoms Skin Description Normal Color PA: Respiratory Assessment Start: 09/04/25 01:08 Freq: Status: Active Protocol: Document 09/04/25 01:28 DJW (Rec: 09/04/25 01:29 DJW [id number]) Respiratory Assessment Symptoms Shortness of Breath With Exertion Effort Normal Pattern Regular Depth Normal Chest Expansion Symmetrical Cough Description None Oxygen Delivery Oxygen Flow Rate 2 Oxygen Delivery Nasal Cannula Pulse Oximetry (90- 95 100) Last Vital Signs Temperature 97.6 F 09/04/25 01:18 Pulse Rate 104 H 09/04/25 03:38 Respiratory Rate 18 09/04/25 03:38 Pulse Oximetry 100 09/04/25 03:38 Blood Pressure 134/86 09/04/25 03:38 Blood Pressure Mean 102 09/04/25 03:38 Blood Pressure Position Supine 09/04/25 03:38 Oxygen Delivery Nasal Cannula 09/04/25 01:28 Oxygen Flow Rate 2 09/04/25 01:28 Weight 89.2 kg 09/04/25 01:18 Last Result - Abnormals Only WBC 11.0 K/mm3 (4.5-10.0) H 09/04/25 01:33 RBC 5.99 M/mm3 (4.2-5.4) H 09/04/25 01:33 Hgb 17.4 g/dL (12.0-15.0) H 09/04/25 01:33 Hct 54.0 % (37.0-47.0) H 09/04/25 01:33 Plt Count 127 k/mm3 (150-375) L 09/04/25 01:33 Neut % (Auto) 85.1 % (45.5-73.1) H 09/04/25 01:33 Lymph % (Auto) 9.5 % (18.3-44.2) L 09/04/25 01:33 Absolute Neuts (auto) 9.4 K/mm3 (1.3-6.7) H 09/04/25 01:33 BUN 23 mg/dL (7-17) H 09/04/25 01:33 Creatinine 1.19 mg/dL (0.7-1.0) H 09/04/25 01:33 Estimated GFR 43 (59-) L 09/04/25 01:33 Glucose 194 mg/dL (65-110) H 09/04/25 01:33 Lactic Acid 2.1 mmol/L (0.7-2.0) H 09/04/25 01:33 Alkaline Phosphatase 136 U/L (38-126) H 09/04/25 01:33 Troponin I 0.053 ng/mL (0.000-0.034) H* 09/04/25 01:33 NT-Pro-B Natriuret Pep 2770 pg/mL (19.9-100) H 09/04/25 01:33 Most Recent Suicide Severity Rating Suicide Severity Rating NO RISK INDICATED 09/04/25 01:18
[2025-09-04] MEDS: DOXYCYCLINE IV 100 MG in SODIUM CHLORIDE 0.9% IV 100 ML IVPB (04:33)
--- NOTE | 2025-09-04 05:13 | ADMGEN ---
This patient, Stefani Ferrara, was admitted to IMU Room 203-01. Patient/family oriented to hospital policies and general routines including ID bracelet, bed and alarms, visiting hours, pain management, procedures, bathroom and other care routines, personal items, smoking policy, room service/diet, and visiting hours. Information on how to activate the Rapid Response Team has been discussed. Patient/Family are encouraged to report perceived risks to care and to ask questions if they do not understand what they are told or what they should do.
[2025-09-04 06:05] LABS: Troponin I 0.198 ng/mL (0.000-0.034)
--- NOTE | 2025-09-04 06:24 | P.HP_ITS ---
H&P: HPI History of Present Illness Date/Time: 09/04/25 06:24 Chief Complaint: Shortness of breath Narrative: This is an 80-year-old female patient who resides at home alone. She has a history of hypertension. She denies any COPD are congestive heart failure. The patient stated that she was short of breath and she activated EMS. She woke up in the morning and could not catch her breath. The patient does not wear any supplemental oxygen at home. However she was placed on supplemental oxygen at 2 L per nasal cannula per EMS. Patient stated that the oxygen did help her out somewhat. She has not been out of the country are had any recent sick contacts. Her white count 11.0. H&H is 17.4 in 54.0 which is her baseline. Her platelet count was noted to be 127. BUN is 23 creatinine 1.19. GFR is 43 the patient is at her baseline. Random glucose is 194. Lactic was 2.1 and then 2.5. Troponin 0.053 and 0.198. Chest x-ray was read per ED as pulmonary edema. The patient was started on ceftriaxone and doxycycline. She was also given a DuoNeb and Lasix. The patient stated that she felt somewhat better. The patient is being admitted to inpatient status on the date of service of 09/04/2025. Review of Systems Constitutional: Constitutional: Reports as per HPI and Reports no additional constitutional complaints Eyes: Eyes: Reports as per HPI and Reports no additional eye complaints ENT: Reports system reviewed and no additional complaints, except as documented and Reports Normal hearing present Cardiovascular: Cardiovascular: Reports no additional cardiovascular complaints Respiratory: Respiratory: Reports as per HPI and Reports no additional respiratory complaints Gastrointestinal: Gastrointestinal: Reports as per HPI and Reports no additional gastrointestinal complaints Genitourinary: Genitourinary: Reports no additional female genitourinary complaints Musculoskeletal: Musculoskeletal: Reports no additional musculoskeletal complaints Integumentary/Breasts: Skin/Breast: Reports system reviewed and no additional complaints, except as docu Neurologic: Reports system reviewed and no additional complaints, except as documented and Reports Normal hearing present Psychiatric: Psychiatric: Reports no additional psychiatric complaints and Reports as per HPI Hematologic/Lymphatic: Hematologic/Lymphatic: Reports no additional hemat ologic/lymphatic complaints Allergic/Immunologic: Allergic/Immunologic: Reports no additional allergic/immunologic complaints [facility] Past Medical History Medical History (Updated 09/04/25 @ 16:09 by Tre Squires MD) Congestive heart failure Summary 1. Complete two-dimensional, color flow and Doppler transthoracic echocardiogram is performed. 2. Left ventricular chamber dimension is normal. 3. Left ventricular systolic function is normal, estimated at 55-60%. 4. The left ventricular diastolic function is grade I diastolic dysfunction. 5. E/e' 15 is elevated. 6. Left atrial chamber dimension is mildly enlarged. 7. There is moderate aortic valve sclerosis. 8. There is mild aortic valve stenosis with a peak velocity of 155 cm/s, mean gradient of 5 mmHg, and aortic valve area of 1.9 cm2. 9. The mitral valve has moderately calcified annulus. 10. There is trace mitral valve regurgitation. 11. No pulmonary hypertension, estimated pulmonary arterial systolic pressure is 28 mmHg. 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 She stated that her son and grandson syncopal per helper at times. The patient is . She is retired. Code status: Full code Smoking status: Never smoker Second hand tobacco smoke exposure: No Alcohol intake: former Substance use: never Substance use type: does not use Do You Feel Safe in your Home?: Yes Lack of Transportation: No Lack of Food: Never True Current Housing: I Have Housing Concerned About Future Housing: No Difficulty Paying Gas/Electric Bills: YES Difficulty Paying for Meds: No Currently Unemployed: YES Education: High School Diploma/GED Difficulty w/ Childcare or Family Care: No Spiritual care concerns: No Meds Home Medications and Allergies Home Medications ?Medication ?Instructions ?Recorded ?Confirmed ?Type aspirin 81 mg tablet 81 mg PO DAILY 07/14/2308/17 History hydrochlorothiazide 12.5 mg tablet 12.5 mg PO DAILY #3 0 tabs 12/11/24 09/04/25 Rx nebivolol 2.5 mg tablet 2.5 mg PO DAILY #30 tabs 09/04/25 Rx Allergies Allergy/AdvReac Type Severity Reaction Status Date / Time vancomycin Allergy Severe pt turned Verified 09/04/25 01:37 purple on the operating table Vital Signs Vital Signs - 24 hr 09/04/25 01:18 09/04/25 01:18 09/04/25 01:19 Temperature 97.6 F Pulse Rate 101 H Respiratory Rate 16 Blood Pressure 133/81 Pulse Oximetry 95 89 L 96 Oxygen Delivery Nasal Cannula Room Air Nasal Cannula Oxygen Flow Rate 2 2 09/04/25 01:28 09/04/25 01:45 09/04/25 01:56 Temperature Pulse Rate 105 H 104 H Respiratory Rate 26 H 26 H Blood Pressure Pulse Oximetry 95 Oxygen Delivery Nasal Cannula Oxygen Flow Rate 2 09/04/25 03:38 09/04/25 05:03 09/04/25 05:49 Temperature Pulse Rate 104 H 100 100 Respiratory Rate 18 18 18 Blood Pressure 134/86 136/84 Pulse Oximetry 100 94 94 Oxygen Delivery Nasal Cannula Oxygen Flow Rate 2 09/04/25 06:00 Temperature Pulse Rate 104 H Respiratory Rate Blood Pressure Pulse Oximetry Oxygen Delivery Oxygen Flow Rate Exam Const: General: cooperative, healthy appearing, comfortable, no acute distress, well developed, awake, Physically active, average body habitus and well nourished Nutritional Appearance: average body habitus and well nourished Orientation/consciousness: oriented to person, oriented to place, oriented to time and patient oriented x3 Limitations: no limitations HENMT: Head: normal to inspection, No palpable skull fracture present and atraumatic Ears: hearing grossly normal bilaterally and external ears normal Other: 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 She has a large brown scab noted to her right temporal area that is approximately 1 x 1. No drainage is noted. 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) Neck: Neck: normal visual inspection, full ROM, no lymphadenopathy and trachea midline Chest: Chest palpation & inspection: normal inspection of the chest Resp: Effort & Inspection: normal respiratory effort Auscultation: clear to auscultation bilaterally Percussion: percussion normal Cardio: Palpation: normal PMI Rate: regular rate Rhythm: regular rhythm Heart sounds: S1 normal heart sound present and S2 normal heart sound present Peripheral pulses: Peripheral pulses 2+ throughout GI: Inspection: normal to inspection Percussion: Yes normal to percussion Auscultation: normal bowel sounds Rectal Exam: deferred Skin: General skin exam: normal color Lesions: lesion noted frontal region size (Approximately 1 by 1 is brown in color. No discharge or drainage noted from the area.) Rashes: no rashes Trauma: no lacerations or abrasions Wounds: no wounds Hair: brittle and general thinning Nails: normal Neuro: General: oriented to person, oriented to place, oriented to time and patient oriented x3 Cranial nerves: Yes Equal, round and reactive pupils present and Yes Normal hearing present Cognition (Neuro): normal cognition Speech: normal speech Motor exam (neuro): 5/5 motor strength present throughout Sensory Exam: normal sensation Extrem: General: normal to inspection Right upper extremity: normal to inspection and shoulder/upper arm Left upper extremity: normal to inspection and shoulder/upper arm Right lower extremity: normal to inspection Left lower extremity: normal to inspection Other: She has 2+ pitting edema to lower extremities. Psych: Appearance: grossly normal Mental Status: mental status grossly normal Speech and movement: Normal speech and movement present Affect: normal affect Thought process: Normal thought process present Thought content: Yes Normal thought content present Insight: Limited insight present (Psych) Judgement: Limited judgement present (Psych) H&P: Results Labs Labs: Short CBC 09/04/25 Range/Units 01:33 WBC 11.0 H (4.5-10.0) K/mm3 Hgb 17.4 H (12.0-15.0) g/dL Hct 54.0 H (37.0-47.0) % Plt Count 127 L (150-375) k/mm3 BMP 09/04/25 01:33 Sodium 139 Potassium 4.0 Chloride 101 Carbon Dioxide 29 BUN 23 H Creatinine 1.19 H Glucose 194 H Calcium 10.2 Cardiac Enzymes 09/04/25 09/04/25 Range/Units 01:33 05:30 Troponin I 0.053 H* 0.198 H* D (0.000-0.034) ng/mL Liver Function 09/04/25 Range/Units 01:33 Total Bilirubin 0.9 (0.2-1.3) mg/dL AST 27 (14-36) U/L ALT 26 (6-35) U/L Alkaline Phosphatase 136 H (38-126) U/L Albumin 4.3 (3.5-5.1) g/dL ECG Interpretation: [place] 226 QRSd 113 QT 336 QTc 434 --[place]-- P 48 QRS 261 T -5 SINUS TACHYCARDIA WITH FIRST DEGREE AV BLOCK POSSIBLE LEFT ATRIAL ENLARGEMENT [-0.1mV P-WAVE IN V1/V2] INCOMPLETE RIGHT BUNDLE BRANCH BLOCK [90+ ms QRS DURATION, TERMINAL R IN V1/V2, 40+ ms S IN I/aVL/V4/V5/V6] POSSIBLE RIGHT VENTRICULAR HYPERTROPHY [SOME/ALL OF: PROMINENT R IN V1, LATE TRANSITION, RAD, EVANGELINA, SSS] POSSIBLE ANTERIOR MYOCARDIAL INFARCTION , OF INDETERMINATE AGE [30 ms Q WAVE IN V3/V4, OR R < 0.2 mV IN V4] Compared to ECG 09/18/2024 16:19:28 First degree AV block now present Incomplete right bundle-branch block now present Sinus rhythm no longer present Left-axis deviation no longer present Intraventricular conduction delay no longer present Myocardial infarct finding still presen Assessment and Plan Assessment and plan (1) Acute exacerbation of CHF (congestive heart failure): Qualifiers: Heart failure type: unspecified Qualified Code(s): I50.9 - Heart failure, unspecified Code(s): I50.9 - Heart failure, unspecified Status: Acute Assessment and Plan: -an echo has been ordered. The lungs sound clear but she has 2+ pitting edema to lower extremity -she had an echo on 09/18/2024 [id number] 1. Complete two-dimensional, color flow and Doppler transthoracic echocardiogram is performed. 2. Left ventricular chamber dimension is normal. 3. Left ventricular systolic function is normal, estimated at 55-60%. 4. The left ventricular diastolic function is grade I diastolic dysfunction. 5. E/e' 15 is elevated. 6. Left atrial chamber dimension is mildly enlarged. 7. There is moderate aortic valve sclerosis. 8. There is mild aortic valve stenosis with a peak velocity of 155 cm/s, mean gradient of 5 mmHg, and aortic valve area of 1.9 cm2. 9. The mitral valve has moderately calcified annulus. 10. There is trace mitral valve regurgitation. 11. No pulmonary hypertension, estimated pulmonary arterial systolic pressure is 28 mmHg. -patient had been on hydrochlorothiazide at home that has been discontinued today. IV Lasix has been initiated. Please continue to monitor renal function as she has chronic renal failure. Continue to monitor electrolytes as well. She may need electrolyte replacement with the Lasix. -BNP 2770. -the patient is currently on oxygen at 2 L per nasal cannula. She does not wear oxygen at home. She may possibly need a home O2 evaluation prior to discharge. -the patient also complains of feeling weak. She may need a PT OT evaluation and career development coordinator/teacher consult prior to being discharged. (2) Acute non-ST elevation myocardial infarction (NSTEMI): Code(s): I21.4 - Non-ST elevation (NSTEMI) myocardial infarction Status: Acute Assessment and Plan: -cardiology has been consulted. Patient's troponins are 0.053 and 0.198 respectively. Patient has no complaints of chest pain. This could possibly be demand ischemia due to her dyspnea and congestive heart failure. -continue with aspirin -continue to trend troponins. -EKG was read as EKG was read as [place] 226 QRSd 113 QT 336 QTc 434 --[place]-- P 48 QRS 261 T -5 SINUS TACHYCARDIA WITH FIRST DEGREE AV BLOCK POSSIBLE LEFT ATRIAL ENLARGEMENT [-0.1mV P-WAVE IN V1/V2] INCOMPLETE RIGHT BUNDLE BRANCH BLOCK [90+ ms QRS DURATION, TERMINAL R IN V1/V2, 40+ ms S IN I/aVL/V4/V5/V6] POSSIBLE RIGHT VENTRICULAR HYPERTROPHY [SOME/ALL OF: PROMINENT R IN V1, LATE TRANSITION, RAD, EVANGELINA, SSS] POSSIBLE ANTERIOR MYOCARDIAL INFARCTION , OF INDETERMINATE AGE [30 ms Q WAVE IN V3/V4, OR R < 0.2 mV IN V4] Compared to ECG 09/18/2024 16:19:28 First degree AV block now present Incomplete right bundle-branch block now present Sinus rhythm no longer present Left-axis deviation no longer present Intraventricular conduction delay no longer present Myocardial infarct finding still presen (3) Hyperlipidemia: Qualifiers: Hyperlipidemia type: unspecified Qualified Code(s): E78.5 - Hyperlipidemia, unspecified Code(s): E78.5 - Hyperlipidemia, unspecified Status: Acute Assessment and Plan: -patient is currently not on a statin. (4) Prediabetes: Code(s): R73.03 - Prediabetes Status: Acute Assessment and Plan: -her blood sugar was 194. -I will do Accu-Cheks AC and HS with sliding scale insulin. -Check A1c. (5) CKD (chronic kidney disease) stage 3, GFR 30-59 ml/min: Code(s): N18.30 - Chronic kidney disease, stage 3 unspecified Status: Acute Assessment and Plan: -the patient is at her baseline. Her GFR is 43, creatinine 1.9 and BUN is 23. The patient is at her baseline. Quality VTE Prophylaxis VTE prophylaxis: pharmacologic ordered The patient has had a history of a craniotomy to remove a right tumor. The patient has a chronic right facial droop including the eyelid.
[2025-09-04 08:37] LABS: Hematocrit 53.5 % (37.0-47.0); Hemoglobin 17.4 g/dL (12.0-15.0); Immature Granulocyte Percent A 0.4 % (0-0.5); Lymphocytes Absolute Auto 0.98 K/mm3 (0.9-3.2); Mean Corpuscular HGB Conc 32.5 g/dl (32-36); Mean Corpuscular Hemoglobin 29.1 pg (26-34); Mean Corpuscular Volume 89.5 fl (80-100); Nucleated Red Blood Cells Absolute Auto 0.000 K/mm3 (0.0-0.012); Nucleated Red Blood Cells Perc 0.0 % (0.0-0.2); Platelet Count Result 124 k/mm3 (150-375); Red Blood Count 5.98 M/mm3 (4.2-5.4); White Blood Count 13.3 K/mm3 (4.5-10.0)
[2025-09-04] MEDS: ASPIRIN 81 MG CHEWABLE TABLET PO (08:45)
[2025-09-04 08:46] LABS: Anion Gap 11 mmol/L (4-12); Blood Urea Nitrogen 21 mg/dL (7-17); Calcium 9.7 mg/dL (8.4-10.2); Carbon Dioxide 24 mmol/L (22-30); Chloride 101 mmol/L (98-107); Estimated CRCL calculation 43 ml/min; Estimated Glomerular Filt Rate 58; Glucose 217 mg/dL (65-110); Potassium 3.9 mmol/L (3.4-5.0); Sodium 136 mmol/L (137-145)
[2025-09-04] MEDS: NEBIVOLOL HCL 2.5 MG TABLET PO (08:46)
[2025-09-04] MEDS: ENOXAPARIN 40 MG/0.4 ML SYRINGE SUB-Q (08:46)
[2025-09-04 09:03] LABS: Troponin I 0.317 ng/mL (0.000-0.034)
[2025-09-04 09:19] LABS: Hemoglobin A1C 5.8 % (<5.7)
--- NOTE | 2025-09-04 11:03 | PM.CNCAR ---
Assessment and Plan Assessment and plan (1) Saddle pulmonary embolus: Code(s): I26.92 - Saddle embolus of pulmonary artery without acute cor pulmonale Status: Acute Assessment and Plan: Due to significant clot burden bilaterally, recommend transfer to tertiary care center for mechanical thrombectomy of TPA directed thrombectomy. On Lovenox. Obtain echo. (2) Essential (primary) hypertension: Code(s): I10 - Essential (primary) hypertension Status: Chronic Assessment and Plan: Stable. (3) Elevated troponin: Code(s): R79.89 - Other specified abnormal findings of blood chemistry Status: Acute Assessment and Plan: Trending up 0.317. Due to PE. No cp to suggest ACS. History of Present Illness History of Present Illness Consult date/time: 09/04/25 11:03 Reason For Visit: Acute hypoxemic respiratory failure, CHF exacerbat Narrative: 80 yr old woman who I saw last on 11/05/21 presents to ER for sob. She has a history of dyslipidemia, hypertension. Reports she felt sob for last couple of days and called ambulance. She is diagnosed with saddle embolus with extension involving most segmental arteries. Reports she walks with a walker due to balance issues and can walk around her house as she lives alone. She wakes up 3 times a night due to urinary incontinence. Denies chest pain, sob, orthopnea, PND, edema, palpitations, dizziness. Cardiovascular Procedures Echo/MUGA:: 07/13/18 Echo: EF 50-55%, grade I diastolic dysfunction (E/e' 18), mild LAE, mod MAC, trace AI. Electrophysiology:: 09/27/21 EKG: Sinus rhythm, first degree AV block, PVC, anteroseptal infarct and inferior infarct, age indeterminate. Review of Systems Review of Systems: All systems reviewed & are unremarkable except as noted in HPI and below Constitutional: Constitutional: Reports as per HPI, Denies chills, Reports fatigue and Denies fever(s) Cardiovascular: Cardiovascular: Reports as per HPI, Denies chest pain and Denies irregular heart rhythm Respiratory: Respiratory: Reports as per HPI and Reports dyspnea Gastrointestinal: Gastrointestinal: Reports as per HPI and Denies abdominal pain Genitourinary: Genitourinary: Reports as per HPI and Denies dysuria Musculoskeletal: Musculoskeletal: Reports as per HPI Neurologic: Reports as per HPI, Denies dizziness and Denies syncope [facility] Past Medical History Medical History (Updated 09/04/25 @ 11:06 by Rik Pradhan DO) Congestive heart failure Summary 1. Complete two-dimensional, color flow and Doppler transthoracic echocardiogram is performed. 2. Left ventricular chamber dimension is normal. 3. Left ventricular systolic function is normal, estimated at 55-60%. 4. The left ventricular diastolic function is grade I diastolic dysfunction. 5. E/e' 15 is elevated. 6. Left atrial chamber dimension is mildly enlarged. 7. There is moderate aortic valve sclerosis. 8. There is mild aortic valve stenosis with a peak velocity of 155 cm/s, mean gradient of 5 mmHg, and aortic valve area of 1.9 cm2. 9. The mitral valve has moderately calcified annulus. 10. There is trace mitral valve regurgitation. 11. No pulmonary hypertension, estimated pulmonary arterial systolic pressure is 28 mmHg. 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 She stated that her son and grandson syncopal per helper at times. The patient is . She is retired. Code status: Full code Smoking status: Never smoker Second hand tobacco smoke exposure: No Alcohol intake: former Substance use: never Substance use type: does not use Do You Feel Safe in your Home?: Yes Lack of Transportation: No Lack of Food: Never True Current Housing: I Have Housing Concerned About Future Housing: No Difficulty Paying Gas/Electric Bills: YES Difficulty Paying for Meds: No Currently Unemployed: YES Education: High School Diploma/GED Difficulty w/ Childcare or Family Care: No Spiritual care concerns: No Meds Home Medications and Allergies Home Medications ?Medication ?Instructions ?Recorded ?Confirmed ?Type aspirin 81 mg tablet 81 mg PO DAILY 07/14/23 09/04/25 History hydrochlorothiazide 12.5 mg tablet 12.5 mg PO DAILY #30 tabs 12/11/24 09/04/25 Rx nebivolol 2.5 mg tablet 2.5 mg PO DAILY #30 tabs 05/14/25 09/04/25 Rx Allergies Allergy/AdvReac Type Severity Reaction Status Date / Time vancomycin Allergy Severe pt turned Verified 09/04/25 01:37 purple on the operating table Vital Signs Vital Signs - 24 hr 09/04/25 01:18 09/04/25 01:18 09/04/25 01:19 Temperature 97.6 F Pulse Rate 101 H Respiratory Rate 16 Blood Pressure 133/81 Pulse Oximetry 95 89 L 96 Oxygen Delivery Nasal Cannula Room Air Nasal Cannula Oxygen Flow Rate 2 2 09/04/25 01:28 09/04/25 01:45 09/04/25 01:56 Temperature Pulse Rate 105 H 104 H Respiratory Rate 26 H 26 H Blood Pressure Pulse Oximetry 95 Oxygen Delivery Nasal Cannula Oxygen Flow Rate 2 09/04/25 03:38 09/04/25 05:03 09/04/25 05:49 Temperature Pulse Rate 104 H 100 100 Respiratory Rate 18 18 18 Blood Pressure 134/86 136/84 Pulse Oximetry 100 94 94 Oxygen Delivery Nasal Cannula Oxygen Flow Rate 2 09/04/25 06:00 09/04/25 08:00 09/04/25 08:46 Temperature 97.1 F L Pulse Rate 104 H 102 H 102 H Respiratory Rate 20 Blood Pressure 148/86 H Pulse Oximetry 97 Oxygen Delivery Oxygen Flow Rate Exam Const: General: cooperative, healthy appearing and comfortable Resp: Auscultation: clear to auscultation bilaterally, no crackles, no rales, no rhonchi and no wheezes Cardio: Rate: regular rate Rhythm: regular rhythm Heart sounds: no murmurs Peripheral pulses: dorsalis pedis present GI: GI Palp: No abdominal tenderness and Yes Soft to palpation Neuro: General: oriented to person, oriented to place and oriented to time Extrem: Right lower extremity: no edema Left lower extremity: no edema Results Labs and Meds 09/04/25 08:31 09/04/25 08:29 Lab results: Cardiac Enzymes 09/04/25 09/04/25 09/04/25 Range/Units 01:33 05:30 08:29 AST 27 (14-36) U/L Troponin I 0.053 H* 0.198 H* D 0.317 H* D (0.000-0.034) ng/mL CBC 09/04/25 09/04/25 Range/Units 01:33 08:31 WBC 11.0 H 13.3 H (4.5-10.0) K/mm3 RBC 5.99 H 5.98 H (4.2-5.4) M/mm3 Hgb 17.4 H 17.4 H (12.0-15.0) g/dL Hct 54.0 H 53.5 H (37.0-47.0) % Plt Count 127 L 124 L (150-375) k/mm3 Lymph # (Auto) 1.05 0.98 (0.9-3.2) K/mm3 Ross # (Auto) 0.4 0.6 (0.1-0.6) K/mm3 Eos # (Auto) 0.1 0.0 (0-0.3) K/mm3 Baso # (Auto) 0.0 0.0 (0.0-0.1) K/mm3 Comprehensive Metabolic Panel 09/04/25 09/04/25 Range/Units 01:33 08:29 Sodium 139 136 L (137-145) mmol/L Potassium 4.0 3.9 (3.4-5.0) mmol/L Chloride 101 101 (98-107) mmol/L Carbon Dioxide 29 24 (22-30) mmol/L BUN 23 H 21 H (7-17) mg/dL Creatinine 1.19 H 0.93 (0.7-1.0) mg/dL Glucose 194 H 217 H (65-110) mg/dL Calcium 10.2 9.7 (8.4-10.2) mg/dL AST 27 (14-36) U/L ALT 26 (6-35) U/L Alkaline Phosphatase 136 H (38-126) U/L Total Protein 8.0 (6.3-8.2) g/dL Albumin 4.3 (3.5-5.1) g/dL Intake and Output 09/03/25 09/04/25 09/04/25 23:59 07:59 15:59 Intake Total 50 Output Total 600 Balance -550 Intake: IV 50 cefTRIAXone 1 gm In Sodium 50 Chloride 0.9% IV 50 ml @ 100 mls/hr IVPB ONCE STA Rx#: [id number] Output: Urine 600 Patient Weight 09/04/25 23:59 Weight 81 kg
[2025-09-04] MEDS: PERFLUTREN LIPID MICROSPHERES 1.5 ML VIAL DILUTED TO 10 ML TOTAL VOLUME IV PUSH (11:36)
--- NOTE | 2025-09-04 11:36 | IVDEFINITY ---
Prior to administration of IV Definity the patient was educated on the risks and benefits of the imaging enhancing agent including potential adverse side effects. The patient verbalized understanding. Allergies were verified. No exclusion criteria were identified and at least one of the following inclusion criteria were met: 1) physician request, 2) patient technically difficult to image (per the [place] [employer] guidelines of two or more segments not discernable within the apical view), or 3) questionable left ventricular function. ?
[2025-09-04 11:57] LABS: CRP 4.7 mg/dL (<1.0)
--- NOTE | 2025-09-04 12:01 | PM.CNPUL ---
Assessment and Plan Assessment and plan (1) Saddle pulmonary embolus: Code(s): I26.92 - Saddle embolus of pulmonary artery without acute cor pulmonale Status: Acute Assessment and Plan: at baseline patient has no respiratory limitations, no history of COPD, asthma, chronic infections. She developed acute onset shortness of breath on 09/03/[address] angiogram of the chest shows a large saddle pulmonary embolism with large clot burden, dilation of the right atrium and right ventricle, elevated BNP and rising troponin. Patient has been hemodynamically stable with no evidence of hypotension. Cardiology has recommended transfer to tertiary care center for evaluation of mechanical thrombectomy. Plan: Agree with transfer to higher level of care facility to be evaluated for mechanical thrombectomy. echocardiogram pending.Agree with Lovenox 1 milligram/kilos twice a day. There is no evidence of pneumonia I will discontinue antibiotics. There is no evidence of bronchospasm and I will discontinue DuoNebs at this time. Should the patient developed shock while at [facility] we can perform intravenous thrombolysis. I spoke with Cardiology team and unable to perform any type of mechanical thrombectomy at [facility]. Discussed with Dr. Squires, will follow with you. History of Present Illness History of Present Illness Consult date: 09/04/25 Chief complaint: Acute hypoxemic respiratory failure, CHF exacerbat Narrative: 09/04/2025: This is a new pulmonary consult for pulmonary embolism. 80-year-old with a history of hypertension, CKD, primary heart block. Patient was in her usual state of health on 09/03/2025. At baseline she can walk room to room with a walker and she stops because her legs are tired not because of shortness of breath or dyspnea on exertion. She is a never smoker and not exposed to any secondhand smoke and has no history of asthma, COPD, chronic bronchitis. On 09/03/2025 at 2:00 p.m. the patient was watching TV and developed shortness of breath with no chest pain. She denied fever, chills, rigors, phlegm production, cough or hemoptysis. Shortness of breath worsened and she presented to the emergency room. Her blood pressure is 133/81, heart rate 101, saturations on 2 L nasal cannula 95%. She was afebrile. White blood cell count 11.0 with 1% eosinophils. Creatinine 1.19, BNP 2770, COVID influenza RSV RT PCR assay negative. Troponin 0.53. She was initially treated for CHF and pneumonia with ceftriaxone, doxycycline, nebulizer and Lasix. CT angiogram was then performed which showed saddle pulmonary embolus with large clot burden bilaterally with increased right ventricular and right atrial size. Patient was started on therapeutic doses of Lovenox. 09/04/2025: Currently the patient states she is much better. She says she has 50-60% back to her baseline breathing. She still has some shortness of breath. She is now on room air with saturations 92%. She denies fever, chills, rigors, phlegm, cough or hemoptysis. Since admission she is -550 mL. Blood pressure currently is 141/78 a heart rate of 99. Lower extremity Dopplers negative. cardiology was consulted recommend transfer to tertiary center for mechanical or suction thrombectomy. DATA: 09/04/25: EXAMINATION: US venous doppler [facility] DATE: 09/04/2025 09:45 INDICATION: Edema TECHNIQUE: Grayscale ultrasound images without and with compression and Doppler ultrasound images of the bilateral lower extremity veins were obtained. COMPARISON: None. FINDINGS: The visualized portions of right common femoral vein, profunda (deep) femoral vein, femoral vein, popliteal vein, peroneal veins, posterior tibial veins, and greater saphenous vein outflow are patent. The visualized portions of left common femoral vein, profunda femoral vein, femoral vein, popliteal vein, peroneal veins, posterior tibial veins, and greater saphenous vein outflow are patent. IMPRESSION: 1. No deep venous thrombosis. 09/04/25: EXAMINATION: CTA chest PE protocol INDICATION: Rule out PE COMPARISON: September 18, 2024 FINDINGS: Large saddle pulmonary embolus extends into both interlobar arteries and is almost completely occlusive in the right interlobar artery and occludes approximately 75-80% of the left interlobar artery. Emboli extend into both lower lobe pulmonary arteries right worse than left, as well as the right middle and to lesser extent right upper lobe arteries. Heart size mildly enlarged particularly involving the right ventricle and atrium, relative to the left side. No thoracic aortic aneurysm or dissection. Mild bibasilar atelectatic and/or fibrotic changes noted. No consolidation effusion or pneumothorax. No large nodules or masses. No acute process seen in the visualized portions of the upper abdomen. Cholelithiasis and right-sided renal cyst noted. Diffuse degenerative changes throughout the bones. Right-sided mastectomy with collapsed implant unchanged from the previous exam. IMPRESSION: 1. Large saddle pulmonary embolus with near occlusive emboli in both interlobar arteries. Emboli extend into most of the segmental arteries as well, right worse than left. Right-sided ventricular and atrial dilatation concerning for pending decompensation. 2. Other findings as above. Review of Systems Constitutional: Constitutional: Reports no additional constitutional complaints Eyes: Eyes: Reports no additional eye complaints ENT: Reports system reviewed and no additional complaints, except as documented Cardiovascular: Cardiovascular: Reports no additional cardiovascular complaints Respiratory: Respiratory: Reports no additional respiratory complaints Gastrointestinal: Gastrointestinal: Reports no additional gastrointestinal complaints Musculoskeletal: Musculoskeletal: Reports no additional musculoskeletal complaints Neurologic: Reports system reviewed and no additional complaints, except as documented Psychiatric: Psychiatric: Reports no additional psychiatric complaints Endocrine: Endocrine: Reports no additional endocrine complaints Hematologic/Lymphatic: Hematologic/Lymphatic: Reports no additional hematologic/lymphatic complaints Allergic/Immunologic: Allergic/Immunologic: Reports no additional allergic/immunologic complaints [facility] Past Medical History Medical History (Updated 09/04/25 @ 11:06 by Rik Pradhan DO) Congestive heart failure Summary 1. Complete two-dimensional, color flow and Doppler transthoracic echocardiogram is performed. 2. Left ventricular chamber dimension is normal. 3. Left ventricular systolic function is normal, estimated at 55-60%. 4. The left ventricular diastolic function is grade I diastolic dysfunction. 5. E/e' 15 is elevated. 6. Left atrial chamber dimension is mildly enlarged. 7. There is moderate aortic valve sclerosis. 8. There is mild aortic valve stenosis with a peak velocity of 155 cm/s, mean gradient of 5 mmHg, and aortic valve area of 1.9 cm2. 9. The mitral valve has moderately calcified annulus. 10. There is trace mitral valve regurgitation. 11. No pulmonary hypertension, estimated pulmonary arterial systolic pressure is 28 mmHg. 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 She stated that her son and grandson syncopal per helper at times. The patient is . She is retired. Code status: Full code Smoking status: Never smoker Second hand tobacco smoke exposure: No Alcohol intake: former Substance use: never Substance use type: does not use Do You Feel Safe in your Home?: Yes Lack of Transportation: No Lack of Food: Never True Current Housing: I Have Housing Concerned About Future Housing: No Difficulty Paying Gas/Electric Bills: YES Difficulty Paying for Meds: No Currently Unemployed: YES Education: High School Diploma/GED Difficulty w/ Childcare or Family Care: No Spiritual care concerns: No Meds Home Medications and Allergies Home Medications ?Medication ?Instructions ?Recorded ?Confirmed ?Type aspirin 81 mg tablet 81 mg PO DAILY 07/14/23 09/04/25 History hydrochlorothiazide 12.5 mg tablet 12.5 mg PO DAILY #30 tabs 12/11/24 09/04/25 Rx nebivolol 2.5 mg tablet 2.5 mg PO DAILY #30 tabs 05/14/25 09/04/25 Rx Allergies Allergy/AdvReac Type Severity Reaction Status Date / Time vancomycin Allergy Severe pt turned Verified 09/04/25 01:37 purple on the operating table Vital Signs Vital Signs - 24 hr 09/04/25 01:18 09/04/25 01:18 09/04/25 01:19 Temperature 36.4 C Pulse Rate 101 H Respiratory Rate 16 Blood Pressure 133/81 Pulse Oximetry 95 89 L 96 Oxygen Delivery Nasal Cannula Room Air Nasal Cannula Oxygen Flow Rate 2 2 09/04/25 01:28 09/04/25 01:45 09/04/25 01:56 Temperature Pulse Rate 105 H 104 H Respiratory Rate 26 H 26 H Blood Pressure Pulse Oximetry 95 Oxygen Delivery Nasal Cannula Oxygen Flow Rate 2 09/04/25 03:38 09/04/25 05:03 09/04/25 05:49 Temperature Pulse Rate 104 H 100 100 Respiratory Rate 18 18 18 Blood Pressure 134/86 136/84 Pulse Oximetry 100 94 94 Oxygen Delivery Nasal Cannula Oxygen Flow Rate 2 09/04/25 06:00 09/04/25 08:00 09/04/25 08:00 Temperature 36.2 C L Pulse Rate 104 H 102 H 99 Respiratory Rate 20 Blood Pressure 148/86 H Pulse Oximetry 97 Oxygen Delivery Oxygen Flow Rate 09/04/25 08:46 09/04/25 10:00 09/04/25 11:08 Temperature Pulse Rate 102 H 99 55 L Respiratory Rate 18 Blood Pressure Pulse Oximetry Oxygen Delivery Oxygen Flow Rate 09/04/25 11:13 09/04/25 11:55 Temperature 36.3 C L Pulse Rate 50 L 99 Respiratory Rate 18 20 Blood Pressure 141/78 H Pulse Oximetry 92 Oxygen Delivery Oxygen Flow Rate Exam Const: General: cooperative, healthy appearing and comfortable Orientation/consciousness: oriented to person, oriented to place and oriented to time HENMT: Head: normal to inspection Ears: hearing grossly normal bilaterally Eyes: General: appearance normal, both eyes and all related structures Neck: Neck: normal visual inspection Chest: Chest palpation & inspection: normal inspection of the chest Resp: Effort & Inspection: normal respiratory effort and able to speak in complete sentences Auscultation: no crackles, no rales, no rhonchi, no wheezes and lung sounds not diminished Cardio: Jugular venous distension: no JVD Other: Tachycardic GI: Inspection: normal to inspection GI Palp: No abdominal tenderness Skin: General skin exam: normal color Neuro: General: oriented to person, oriented to place and oriented to time Extrem: General: normal to inspection and no edema Psych: Appearance: grossly normal Results Laboratory Findings 09/04/25 08:31 09/04/25 08:29 Abnormal lab findings: Abnormal Labs 09/04/25 09/04/25 09/04/25 01:33 05:30 07:16 WBC 11.0 H RBC 5.99 H Hgb 17.4 H Hct 54.0 H Plt Count 127 L Neut % (Auto) 85.1 H Lymph % (Auto) 9.5 L Abs Immat Gran (auto) Absolute Neuts (auto) 9.4 H Sodium BUN 23 H Creatinine 1.19 H Estimated GFR 43 L Glucose 194 H POC Capillary Glucose 170 H Hemoglobin A1c Lactic Acid 2.1 H 2.5 H Alkaline Phosphatase 136 H Troponin I 0.053 H* 0.198 H* D C-Reactive Protein 4.7 H NT-Pro-B Natriuret Pep 2770 H 09/04/25 09/04/25 09/04/25 08:29 08:31 11:40 WBC 13.3 H RBC 5.98 H Hgb 17.4 H Hct 53.5 H Plt Count 124 L Neut % (Auto) 87.3 H Lymph % (Auto) 7.4 L Abs Immat Gran (auto) 0.05 H Absolute Neuts (auto) 11.7 H Sodium 136 L BUN 21 H Creatinine Estimated GFR 58 L Glucose 217 H POC Capillary Glucose 163 H Hemoglobin A1c 5.8 H Lactic Acid Alkaline Phosphatase Troponin I 0.317 H* D C-Reactive Protein NT-Pro-B Natriuret Pep Diagnostic Findings Additional studies: ITS Impressions Chest X-Ray 09/04/25 06:31 IMPRESSION: 1. No acute cardiopulmonary findings. Chest CTA 09/04/25 09:02 IMPRESSION: 1. Large saddle pulmonary embolus with near occlusive emboli in both interlobar arteries. Emboli extend into most of the segmental arteries as well, right worse than left. Right-sided ventricular and atrial dilatation concerning for pending decompensation. 2. Other findings as above. Venous Doppler Study 09/04/25 09:47
[2025-09-04 12:06] LABS: Procalcitonin 0.1 ng/mL
--- NOTE | 2025-09-04 16:06 | PM.IMPN ---
Progress Note: A&P Assessment and Plan (1) Acute exacerbation of CHF (congestive heart failure): Qualifiers: Heart failure type: unspecified Qualified Code(s): I50.9 - Heart failure, unspecified Code(s): I50.9 - Heart failure, unspecified Status: Acute Assessment and Plan: -an echo has been ordered. The lungs sound clear but she has 2+ pitting edema to lower extremity -she had an echo on 09/18/2024 [place] 1. Complete two-dimensional, color flow and Doppler transthoracic echocardiogram is performed. 2. Left ventricular chamber dimension is normal. 3. Left ventricular systolic function is normal, estimated at 55-60%. 4. The left ventricular diastolic function is grade I diastolic dysfunction. 5. E/e' 15 is elevated. 6. Left atrial chamber dimension is mildly enlarged. 7. There is moderate aortic valve sclerosis. 8. There is mild aortic valve stenosis with a peak velocity of 155 cm/s, mean gradient of 5 mmHg, and aortic valve area of 1.9 cm2. 9. The mitral valve has moderately calcified annulus. 10. There is trace mitral valve regurgitation. 11. No pulmonary hypertension, estimated pulmonary arterial systolic pressure is 28 mmHg. -patient had been on hydrochlorothiazide at home that has been discontinued today. IV Lasix has been initiated. Please continue to monitor renal function as she has chronic renal failure. Continue to monitor electrolytes as well. She may need electrolyte replacement with the Lasix. -BNP 2770. -the patient is currently on oxygen at 2 L per nasal cannula. She does not wear oxygen at home. She may possibly need a home O2 evaluation prior to discharge. -the patient also complains of feeling weak. She may need a PT OT evaluation and caregiver services home consult prior to being discharged. (2) Acute non-ST elevation myocardial infarction (NSTEMI): Code(s): I21.4 - Non-ST elevation (NSTEMI) myocardial infarction Status: Acute Assessment and Plan: Demand ischemia secondary to acute PE Continue Lovenox therapeutic. Monitor CBC -continue with aspirin -EKG was read as EKG was read as IA 226 QRSd 113 QT 336 QTc 434 --[place]-- P 48 QRS 261 T -5 SINUS TACHYCARDIA WITH FIRST DEGREE AV BLOCK POSSIBLE LEFT ATRIAL ENLARGEMENT [-0.1mV P-WAVE IN V1/V2] INCOMPLETE RIGHT BUNDLE BRANCH BLOCK [90+ ms QRS DURATION, TERMINAL R IN V1/V2, 40+ ms S IN I/aVL/V4/V5/V6] POSSIBLE RIGHT VENTRICULAR HYPERTROPHY [SOME/ALL OF: PROMINENT R IN V1, LATE TRANSITION, RAD, EVANGELINA, SSS] POSSIBLE ANTERIOR MYOCARDIAL INFARCTION , OF INDETERMINATE AGE [30 ms Q WAVE IN V3/V4, OR R < 0.2 mV IN V4] Compared to ECG 09/18/2024 16:19:28 First degree AV block now present Incomplete right bundle-branch block now present Sinus rhythm no longer present Left-axis deviation no longer present Intraventricular conduction delay no longer present Myocardial infarct finding still presen Cardiology team on board (3) Hyperlipidemia: Qualifiers: Hyperlipidemia type: unspecified Qualified Code(s): E78.5 - Hyperlipidemia, unspecified Code(s): E78.5 - Hyperlipidemia, unspecified Status: Acute Assessment and Plan: -patient is currently not on a statin. (4) Prediabetes: Code(s): R73.03 - Prediabetes Status: Acute Assessment and Plan: -her blood sugar was 194. Continue Accu-Cheks AC and HS with sliding scale insulin. (5) CKD (chronic kidney disease) stage 3, GFR 30-59 ml/min: Code(s): N18.30 - Chronic kidney disease, stage 3 unspecified Status: Acute Assessment and Plan: -the patient is at her baseline. Her GFR is 43, creatinine 1.9 and BUN is 23. The patient is at her baseline. (6) Acute saddle pulmonary embolism: Code(s): I26.92 - Saddle embolus of pulmonary artery without acute cor pulmonale Status: Acute Assessment and Plan: CTA of chest this morning which came back positive for saddle PE. Cardiology and plate fitter were consulted. I ordered Lovenox therapeutic. Discussed with Dr. Bob. Echo reviewed, showed D shape ventricular septum consistent with RV pressure overload. Reviewed Cardiology note. Called to transfer patient to tertiary hospital for possible thrombectomy. Subjective Date/time seen: 09/04/25 16:06 Interval history: Patient was seen examined at bedside. He is feeling fine. Denies any chest pain, abdominal pain, nausea vomiting. SOB improving Ordered CTA of chest this morning which came back positive for saddle PE. Cardiology and plate fitter were consulted. I ordered Lovenox therapeutic. Discussed with Dr. Bob. Echo reviewed, showed D shape ventricular septum consistent with RV pressure overload. Reviewed Cardiology note. Called to transfer patient to tertiary hospital for possible thrombectomy. I am Waiting for them to call back. Vital signs stable. Continue monitoring. Review of Systems Constitutional: Constitutional: Reports as per HPI and Reports no additional constitutional complaints Eyes: Eyes: Reports as per HPI and Reports no additional eye complaints ENT: Reports system reviewed and no additional complaints, except as documented and Reports Normal hearing present Cardiovascular: Cardiovascular: Reports no additional cardiovascular complaints Respiratory: Respiratory: Reports as per HPI and Reports no additional respiratory complaints Gastrointestinal: Gastrointestinal: Reports as per HPI and Reports no additional gastrointestinal complaints Genitourinary: Genitourinary: Reports no additional female genitourinary complaints Musculoskeletal: Musculoskeletal: Reports no additional musculoskeletal complaints Integumentary/Breasts: Skin/Breast: Reports system reviewed and no additional complaints, except as docu Neurologic: Reports system reviewed and no additional complaints, except as documented and Reports Normal hearing present Psychiatric: Psychiatric: Reports no additional psychiatric complaints and Reports as per HPI Hematologic/Lymphatic: Hematologic/Lymphatic: Reports no additional hematologic/lymphatic complaints Allergic/Immunologic: Allergic/Immunologic: Reports no additional allergic/immunologic complaints Exam Const: General: cooperative, healthy appearing, comfortable, no acute distress, well developed, awake, Physically active, average body habitus and well nourished Nutritional Appearance: average body habitus and well nourished Orientation/consciousness: oriented to person, oriented to place, oriented to time and patient oriented x3 Limitations: no limitations HENMT: Head: normal to inspection, No palpable skull fracture present and atraumatic Ears: hearing grossly normal bilaterally and external ears normal Other: 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 She has a large brown scab noted to her right temporal area that is approximately 1 x 1. No drainage is noted. 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) Pupils: Equal, round and reactive pupils present Neck: Neck: normal visual inspection, full ROM, no lymphadenopathy and trachea midline Chest: Chest palpation & inspection: normal inspection of the chest Resp: Effort & Inspection: normal respiratory effort Auscultation: clear to auscultation bilaterally Percussion: percussion normal Cardio: Palpation: normal PMI Rate: regular rate Rhythm: regular rhythm Heart sounds: S1 normal heart sound present and S2 normal heart sound present Peripheral pulses: Peripheral pulses 2+ throughout GI: Inspection: normal to inspection Auscultation: normal bowel sounds Rectal Exam: deferred Skin: General skin exam: normal color and lesion Lesions: lesion noted frontal region size (Approximately 1 by 1 is brown in color. No discharge or drainage noted from the area.) Rashes: no rashes Trauma: no lacerations or abrasions Wounds: no wounds Hair: brittle and general thinning Nails: normal Neuro: General: oriented to person, oriented to place, oriented to time and patient oriented x3 Cranial nerves: Yes Equal, round and reactive pupils present and Yes Normal hearing present Cognition (Neuro): normal cognition Speech: normal speech Motor exam (neuro): 5/5 motor strength present throughout Sensory Exam: normal sensation Extrem: General: normal to inspection Right upper extremity: normal to inspection and shoulder/upper arm Left upper extremity: normal to inspection and shoulder/upper arm Right lower extremity: normal to inspection Left lower extremity: normal to inspection Other: She has 2+ pitting edema to lower extremities. Psych: Appearance: grossly normal Mental Status: mental status grossly normal Speech and movement: Normal speech and movement present Affect: normal affect Thought process: Normal thought process present Insight: Limited insight present (Psych) Judgement: Limited judgement present (Psych) Objective Data Vital Signs Vital Signs: Vital Signs - 24 hr 09/04/25 01:18 09/04/25 01:18 09/04/25 01:19 Temperature 97.6 F Pulse Rate 101 H Respiratory Rate 16 Blood Pressure 133/81 Pulse Oximetry 95 89 L 96 Oxygen Delivery Nasal Cannula Room Air Nasal Cannula Oxygen Flow Rate 2 2 09/04/25 01:28 09/04/25 01:45 09/04/25 01:56 Temperature Pulse Rate 105 H 104 H Respiratory Rate 26 H 26 H Blood Pressure Pulse Oximetry 95 Oxygen Delivery Nasal Cannula Oxygen Flow Rate 2 09/04/25 03:38 09/04/25 05:03 09/04/25 05:49 Temperature Pulse Rate 104 H 100 100 Respiratory Rate 18 18 18 Blood Pressure 134/86 136/84 Pulse Oximetry 100 94 94 Oxygen Delivery Nasal Cannula Oxygen Flow Rate 2 09/04/25 06:00 09/04/25 08:00 09/04/25 08:00 Temperature 97.1 F L Pulse Rate 104 H 102 H 99 Respiratory Rate 20 Blood Pressure 148/86 H Pulse Oximetry 97 Oxygen Delivery Oxygen Flow Rate 09/04/25 08:46 09/04/25 10:00 09/04/25 11:08 Temperature Pulse Rate 102 H 99 55 L Respiratory Rate 18 Blood Pressure Pulse Oximetry Oxygen Delivery Oxygen Flow Rate 09/04/25 11:13 09/04/25 11:55 09/04/25 12:00 Temperature 97.3 F L Pulse Rate 50 L 99 98 Respiratory Rate 18 20 Blood Pressure 141/78 H Pulse Oximetry 92 Oxygen Delivery Oxygen Flow Rate 09/04/25 14:00 Temperature Pulse Rate 96 Respiratory Rate Blood Pressure Pulse Oximetry Oxygen Delivery Oxygen Flow Rate Intake/Output Intake/Output: Intake & Output 09/01/25 09/02/25 09/03/25 09/04/25 23:59 23:59 23:59 23:59 Intake Total 290 Output Total 600 Balance -310 Meds/Results Medications: Active Medications Generic Name Dose Route Start Last Admin Trade Name Freq PRN Reason Stop Dose Admin Aspirin 81 mg 09/04/25 08:00 09/04/25 08:45 Aspirin 81 Mg Chewable Tablet PO 81 mg DAILY@0800 [facility] Administration Dextrose 12.5 gm 09/04/25 06:52 Dextrose 50% 25 Gm/50 Ml Syringe IV PUSH PRN PRN Hypoglycemia Protocol Enoxaparin Sodium 80 mg 09/04/25 21:00 Enoxaparin 80 Mg/0.8 Ml Syringe SUB-Q Q12HR [facility] Glucagon 1 mg 09/04/25 06:52 Glucagon For Inj 1 Mg Vial IM PRN PRN Hypoglycemia Protocol Glucose 15 gm 09/04/25 06:52 Glucose Oral Gel 15 Gm Of Glucse In 37.5 Gm Tube PO PRN PRN Hypoglycemia Protocol Dextrose 1,000 mls @ 100 mls/hr 09/04/25 06:52 Dextrose 5% 1,000 Ml IVPB PRN PRN Hypoglycemia Protocol Insulin Aspart 2 - 5 units 09/04/25 08:00 09/04/25 12:25 Insulin Aspart (*Bkc) 100 Units/Ml SUB-Q Not Given TIDWM [facility] Protocol Nebivolol 2.5 mg 09/04/25 09:00 09/04/25 08:46 Nebivolol Hcl 2.5 Mg Tablet PO 2.5 mg DAILY JANE Administration Perflutren Lipid Microsphere 0 ml 09/04/25 09:47 Perflutren Lipid Microspheres 1.5 Ml Vial Diluted To 10 Ml Total Volume IV PUSH 09/07/25 09:47 ONCE PRN adequate visualization Protocol Radiology Results: ITS Impressions Chest X-Ray 09/04/25 06:31 IMPRESSION: 1. No acute cardiopulmonary findings. Chest CTA 09/04/25 09:02 IMPRESSION: 1. Large saddle pulmonary embolus with near occlusive emboli in both interlobar arteries. Emboli extend into most of the segmental arteries as well, right worse than left. Right-sided ventricular and atrial dilatation concerning for pending decompensation. 2. Other findings as above. Venous Doppler Study 09/04/25 09:47 IMPRESSION: 1. No deep venous thrombosis. Labs Labs: Laboratory Results - last 24 hr 09/04/25 09/04/25 09/04/25 01:33 05:30 07:16 WBC 11.0 H RBC 5.99 H Hgb 17.4 H Hct 54.0 H MCV 90.2 MCH 29.0 MCHC 32.2 RDW 13.8 Plt Count 127 L MPV 9.9 Immature Gran % (Auto) 0.3 Neut % (Auto) 85.1 H Lymph % (Auto) 9.5 L Taylor % (Auto) 3.8 Eos % (Auto) 1.0 Baso % (Auto) 0.3 Lymph # (Auto) 1.05 Taylor # (Auto) 0.4 Eos # (Auto) 0.1 Baso # (Auto) 0.0 Abs Immat Gran (auto) 0.03 Absolute Neuts (auto) 9.4 H Absolute Nucleated RBC 0.000 Nucleated RBC % 0.0 % Immature Plt Fraction 3.6 Sodium 139 Potassium 4.0 Chloride 101 Carbon Dioxide 29 Anion Gap 9 BUN 23 H Creatinine 1.19 H Estim Creat Clear Calc 36 Estimated GFR 43 L Glucose 194 H POC Capillary Glucose 170 H Hemoglobin A1c Lactic Acid 2.1 H 2.5 H Calcium 10.2 Total Bilirubin 0.9 AST 27 ALT 26 Alkaline Phosphatase 136 H Troponin I 0.053 H* 0.198 H* D C-Reactive Protein 4.7 H NT-Pro-B Natriuret Pep 2770 H Total Protein 8.0 Albumin 4.3 Procalcitonin 0.1 Influenza A (RT-PCR) Negative Influenza B (RT-PCR) Negative RSV (RT-PCR) Negative SARS-CoV-2 RNA (RT-PCR) Negative 09/04/25 09/04/25 09/04/25 08:29 08:31 11:40 WBC 13.3 H RBC 5.98 H Hgb 17.4 H Hct 53.5 H MCV 89.5 MCH 29.1 MCHC 32.5 RDW 13.8 Plt Count 124 L MPV 9.0 Immature Gran % (Auto) 0.4 Neut % (Auto) 87.3 H Lymph % (Auto) 7.4 L Taylor % (Auto) 4.5 Eos % (Auto) 0.2 Baso % (Auto) 0.2 Lymph # (Auto) 0.98 Taylor # (Auto) 0.6 Eos # (Auto) 0.0 Baso # (Auto) 0.0 Abs Immat Gran (auto) 0.05 H Absolute Neuts (auto) 11.7 H Absolute Nucleated RBC 0.000 Nucleated RBC % 0.0 % Immature Plt Fraction Sodium 136 L Potassium 3.9 Chloride 101 Carbon Dioxide 24 Anion Gap 11 BUN 21 H Creatinine 0.93 Estim Creat Clear Calc 43 Estimated GFR 58 L Glucose 217 H POC Capillary Glucose 163 H Hemoglobin A1c 5.8 H Lactic Acid Calcium 9.7 Total Bilirubin AST ALT Alkaline Phosphatase Troponin I 0.317 H* D C-Reactive Protein NT-Pro-B Natriuret Pep Total Protein Albumin Procalcitonin Influenza A (RT-PCR) Influenza B (RT-PCR) RSV (RT-PCR) SARS-CoV-2 RNA (RT-PCR) Quality VTE Prophylaxis VTE prophylaxis: pharmacologic ordered
[2025-09-04] MEDS: INSULIN ASPART (*BKC) 100 UNITS/ML SUB-Q (16:44)
--- NOTE | 2025-09-04 16:46 | PM.TDS ---
Transfer Discharge Sum: Prov Provider Date of admission: 09/04/25 02:59 Primary care physician: Jer Brown DO Admitting clinician: Gabriel Pa MD Consults: 09/04/25 Consult to Physician Routine Comment: Called office and notified them of consult Consulting Provider: Rik Pradhan call worker/MD group to consult: Cardiology Reason for consultation: CHF and elevated troponin Has provider been notified: Yes Consult to Physician Routine Comment: Spoke with and notified him of consult Consulting Provider: Amauri Bob call worker/MD group to consult: pulmonary Reason for consultation: PE Has provider been notified: Yes DS: Admitting Diagnosis Discharge Date 09/04/25 Admitting Diagnosis SOB DS: Discharge Diagnosis Discharge Diagnosis (1) Acute exacerbation of CHF (congestive heart failure): Qualifiers: Heart failure type: unspecified Qualified Code(s): I50.9 - Heart failure, unspecified Code(s): I50.9 - Heart failure, unspecified Status: Acute Assessment and Plan: The lungs sound clear but she has 2+ pitting edema to lower extremity pressure is 28 mmHg. -patient had been on hydrochlorothiazide at home that has been discontinued today. IV Lasix has been initiated. Please continue to monitor renal function as she has chronic renal failure. Continue to monitor electrolytes as well. She may need electrolyte replacement with the Lasix. -BNP 2770. -the patient is currently on oxygenRA She does not wear oxygen at home. (2) Acute non-ST elevation myocardial infarction (NSTEMI): Code(s): I21.4 - Non-ST elevation (NSTEMI) myocardial infarction Status: Acute Assessment and Plan: Demand ischemia secondary to acute PE Continue Lovenox therapeutic. Monitor CBC -continue with aspirin -EKG was read as EKG was read as [place] 226 QRSd 113 QT 336 QTc 434 --Verdigre-- P 48 QRS 261 T -5 SINUS TACHYCARDIA WITH FIRST DEGREE AV BLOCK POSSIBLE LEFT ATRIAL ENLARGEMENT [-0.1mV P-WAVE IN V1/V2] INCOMPLETE RIGHT BUNDLE BRANCH BLOCK [90+ ms QRS DURATION, TERMINAL R IN V1/V2, 40+ ms S IN I/aVL/V4/V5/V6] POSSIBLE RIGHT VENTRICULAR HYPERTROPHY [SOME/ALL OF: PROMINENT R IN V1, LATE TRANSITION, RAD, EVANGELINA, SSS] POSSIBLE ANTERIOR MYOCARDIAL INFARCTION , OF INDETERMINATE AGE [30 ms Q WAVE IN V3/V4, OR R < 0.2 mV IN V4] Compared to ECG 09/18/2024 16:19:28 First degree AV block now present Incomplete right bundle-branch block now present Sinus rhythm no longer present Left-axis deviation no longer present Intraventricular conduction delay no longer present Myocardial infarct finding still presen Cardiology team on board (3) Hyperlipidemia: Qualifiers: Hyperlipidemia type: unspecified Qualified Code(s): E78.5 - Hyperlipidemia, unspecified Code(s): E78.5 - Hyperlipidemia, unspecified Status: Acute Assessment and Plan: -patient is currently not on a statin. (4) Prediabetes: Code(s): R73.03 - Prediabetes Status: Acute Assessment and Plan: -her blood sugar was 194. Continue Accu-Cheks AC and HS with sliding scale insulin. (5) CKD (chronic kidney disease) stage 3, GFR 30-59 ml/min: Code(s): N18.30 - Chronic kidney disease, stage 3 unspecified Status: Acute Assessment and Plan: -the patient is at her baseline. Her GFR is 43, creatinine 1.9 and BUN is 23. The patient is at her baseline. (6) Acute saddle pulmonary embolism: Code(s): I26.92 - Saddle embolus of pulmonary artery without acute cor pulmonale Status: Acute Assessment and Plan: CTA of chest this morning which came back positive for saddle PE. Cardiology and actuarial associate were consulted. I ordered Lovenox therapeutic. Discussed with Dr. Bob. Echo reviewed, showed D shape ventricular septum consistent with RV pressure overload. Reviewed Cardiology note. Called to transfer patient to tertiary hospital for possible thrombectomy. Transfer Discharge Sum: Med Medications Active and Home Medications: Home Medications aspirin 81 mg tablet 81 mg PO DAILY 07/14/23 [History Confirmed 09/04/25] hydrochlorothiazide 12.5 mg tablet 12.5 mg PO DAILY #30 tabs 12/11/24 [Rx Confirmed 09/04/25] nebivolol 2.5 mg tablet 2.5 mg PO DAILY #30 tabs 05/14/25 [Rx Confirmed 09/04/25] Active Medications Aspirin (Aspirin 81 Mg Chewable Tablet) 81 mg PO DAILY@0800 JANE Last Admin: 09/04/25 08:45 Dose: 81 mg Dextrose (Dextrose 50% 25 Gm/50 Ml Syringe) 12.5 gm IV PUSH PRN PRN; Protocol PRN Reason: Hypoglycemia Enoxaparin Sodium (Enoxaparin 80 Mg/0.8 Ml Syringe) 80 mg SUB-Q Q12HR JANE Glucagon (Glucagon For Inj 1 Mg Vial) 1 mg IM PRN PRN; Protocol PRN Reason: Hypoglycemia Glucose (Glucose Oral Gel 15 Gm Of Glucse In 37.5 Gm Tube) 15 gm PO PRN PRN; Protocol PRN Reason: Hypoglycemia Dextrose (Dextrose 5% 1,000 Ml) 1,000 mls @ 100 mls/hr IVPB PRN PRN; Protocol PRN Reason: Hypoglycemia Insulin Aspart (Insulin Aspart (*Bkc) 100 Units/Ml) 2 - 5 units SUB-Q TIDWM JANE; Protocol Last Admin: 09/04/25 16:44 Dose: 2 units Nebivolol (Nebivolol Hcl 2.5 Mg Tablet) 2.5 mg PO DAILY JANE Last Admin: 09/04/25 08:46 Dose: 2.5 mg Perflutren Lipid Microsphere (Perflutren Lipid Microspheres 1.5 Ml Vial Diluted To 10 Ml Total Volume) 0 ml IV PUSH ONCE PRN; Protocol PRN Reason: adequate visualization Stop: 09/07/25 09:47 Transfer Discharge Sum: Hosp Hospital Course Hospital course: per HPI: This is an 80-year-old female patient who resides at home alone. She has a history of hypertension. She denies any COPD are congestive heart failure. The patient stated that she was short of breath and she activated EMS. She woke up in the morning and could not catch her breath. The patient does not wear any supplemental oxygen at home. However she was placed on supplemental oxygen at 2 L per nasal cannula per EMS. Patient stated that the oxygen did help her out somewhat. She has not been out of the country are had any recent sick contacts. Her white count 11.0. H&H is 17.4 in 54.0 which is her baseline. Her platelet count was noted to be 127. BUN is 23 creatinine 1.19. GFR is 43 the patient is at her baseline. Random glucose is 194. Lactic was 2.1 and then 2.5. Troponin 0.053 and 0.198. Chest x-ray was read per ED as pulmonary edema. The patient was started on ceftriaxone and doxycycline. She was also given a DuoNeb and Lasix. The patient stated that she felt somewhat better. The patient is being admitted to inpatient status on the date of service of 09/04/2025. 09/04/22 Patient was seen examined at bedside. He is feeling fine. Denies any chest pain, abdominal pain, nausea vomiting. SOB improving Ordered CTA of chest this morning which came back positive for saddle PE. Cardiology and actuarial associate were consulted. I ordered Lovenox therapeutic. Discussed with Dr. Bob. Echo reviewed, showed D shape ventricular septum consistent with RV pressure overload. Reviewed Cardiology note. Called to transfer patient to [facility] for possible thrombectomy. Patient was transferred to [facility]. Patient Condition: Stable Time Spent with Patient Time attestation: Total time spent providing and/or coordinating transfer services: Total time spent: Greater than 30 minutes Exam Const: General: cooperative, healthy appearing, comfortable, no acute distress, well developed, awake, Physically active, average body habitus and well nourished Nutritional Appearance: average body habitus and well nourished Orientation/consciousness: oriented to person, oriented to place, oriented to time and patient oriented x3 Limitations: no limitations HENMT: Head: normal to inspection, No palpable skull fracture present and atraumatic Ears: hearing grossly normal bilaterally and external ears normal Other: 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 She has a large brown scab noted to her right temporal area that is approximately 1 x 1. No drainage is noted. 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) Pupils: Equal, round and reactive pupils present Neck: Neck: normal visual inspection, full ROM, no lymphadenopathy and trachea midline Chest: Chest palpation & inspection: normal inspection of the chest Resp: Effort & Inspection: normal respiratory effort Auscultation: clear to auscultation bilaterally Percussion: percussion normal Cardio: Palpation: normal PMI Rate: regular rate Rhythm: regular rhythm Heart sounds: S1 normal heart sound present and S2 normal heart sound present Peripheral pulses: Peripheral pulses 2+ throughout GI: Inspection: normal to inspection Auscultation: normal bowel sounds Rectal Exam: deferred Skin: General skin exam: normal color and lesion Lesions: lesion noted frontal region size (Approximately 1 by 1 is brown in color. No discharge or drainage noted from the area.) Rashes: no rashes Trauma: no lacerations or abrasions Wounds: no wounds Hair: brittle and general thinning Nails: normal Neuro: General: oriented to person, oriented to place, oriented to time and patient oriented x3 Cranial nerves: Yes Equal, round and reactive pupils present and Yes Normal hearing present Cognition (Neuro): normal cognition Speech: normal speech Motor exam (neuro): 5/5 motor strength present throughout Sensory Exam: normal sensation Extrem: General: normal to inspection Right upper extremity: normal to inspection and shoulder/upper arm Left upper extremity: normal to inspection and shoulder/upper arm Right lower extremity: normal to inspection Left lower extremity: normal to inspection Other: She has 2+ pitting edema to lower extremities. Psych: Appearance: grossly normal Mental Status: mental status grossly normal Speech and movement: Normal speech and movement present Affect: normal affect Thought process: Normal thought process present Insight: Limited insight present (Psych) Judgement: Limited judgement present (Psych) DS: Data Data Completed and Pending Labs on day of discharge: Labs from last 24 hours 09/04/25 09/04/25 09/04/25 16:07 11:40 08:31 WBC 13.3 H RBC 5.98 H Hgb 17.4 H Hct 53.5 H MCV 89.5 MCH 29.1 MCHC 32.5 RDW 13.8 Plt Count 124 L MPV 9.0 Immature Gran % (Auto) 0.4 Neut % (Auto) 87.3 H Lymph % (Auto) 7.4 L Posey % (Auto) 4.5 Eos % (Auto) 0.2 Baso % (Auto) 0.2 Lymph # (Auto) 0.98 Posey # (Auto) 0.6 Eos # (Auto) 0.0 Baso # (Auto) 0.0 Abs Immat Gran (auto) 0.05 H Absolute Neuts (auto) 11.7 H Absolute Nucleated RBC 0.000 Nucleated RBC % 0.0 % Immature Plt Fraction Sodium Potassium Chloride Carbon Dioxide Anion Gap BUN Creatinine Estim Creat Clear Calc Estimated GFR Glucose POC Capillary Glucose 207 H 163 H Hemoglobin A1c Lactic Acid Calcium Total Bilirubin AST ALT Alkaline Phosphatase Troponin I C-Reactive Protein NT-Pro-B Natriuret Pep Total Protein Albumin Procalcitonin Influenza A (RT-PCR) Influenza B (RT-PCR) RSV (RT-PCR) SARS-CoV-2 RNA (RT-PCR) 09/04/25 09/04/25 09/04/25 08:29 07:16 05:30 WBC RBC Hgb Hct MCV MCH MCHC RDW Plt Count MPV Immature Gran % (Auto) Neut % (Auto) Lymph % (Auto) Posey % (Auto) Eos % (Auto) Baso % (Auto) Lymph # (Auto) Posey # (Auto) Eos # (Auto) Baso # (Auto) Abs Immat Gran (auto) Absolute Neuts (auto) Absolute Nucleated RBC Nucleated RBC % % Immature Plt Fraction Sodium 136 L Potassium 3.9 Chloride 101 Carbon Dioxide 24 Anion Gap 11 BUN 21 H Creatinine 0.93 Estim Creat Clear Calc 43 Estimated GFR 58 L Glucose 217 H POC Capillary Glucose 170 H Hemoglobin A1c 5.8 H Lactic Acid 2.5 H Calcium 9.7 Total Bilirubin AST ALT Alkaline Phosphatase Troponin I 0.317 H* D 0.198 H* D C-Reactive Protein 4.7 H NT-Pro-B Natriuret Pep Total Protein Albumin Procalcitonin 0.1 Influenza A (RT-PCR) Influenza B (RT-PCR) RSV (RT-PCR) SARS-CoV-2 RNA (RT-PCR) 09/04/25 01:33 WBC 11.0 H RBC 5.99 H Hgb 17.4 H Hct 54.0 H MCV 90.2 MCH 29.0 MCHC 32.2 RDW 13.8 Plt Count 127 L MPV 9.9 Immature Gran % (Auto) 0.3 Neut % (Auto) 85.1 H Lymph % (Auto) 9.5 L Posey % (Auto) 3.8 Eos % (Auto) 1.0 Baso % (Auto) 0.3 Lymph # (Auto) 1.05 Posey # (Auto) 0.4 Eos # (Auto) 0.1 Baso # (Auto) 0.0 Abs Immat Gran (auto) 0.03 Absolute Neuts (auto) 9.4 H Absolute Nucleated RBC 0.000 Nucleated RBC % 0.0 % Immature Plt Fraction 3.6 Sodium 139 Potassium 4.0 Chloride 101 Carbon Dioxide 29 Anion Gap 9 BUN 23 H Creatinine 1.19 H Estim Creat Clear Calc 36 Estimated GFR 43 L Glucose 194 H POC Capillary Glucose Hemoglobin A1c Lactic Acid 2.1 H Calcium 10.2 Total Bilirubin 0.9 AST 27 ALT 26 Alkaline Phosphatase 136 H Troponin I 0.053 H* C-Reactive Protein NT-Pro-B Natriuret Pep 2770 H Total Protein 8.0 Albumin 4.3 Procalcitonin Influenza A (RT-PCR) Negative Influenza B (RT-PCR) Negative RSV (RT-PCR) Negative SARS-CoV-2 RNA (RT-PCR) Negative
--- NOTE | 2025-09-04 17:53 | PC.NURSE ---
REPORT GIVEN TO ROBERTA MOFFETT AT [facility]. [facility] ETA 2-3 HOURS.
[2025-09-04] MEDS: ENOXAPARIN 80 MG/0.8 ML SYRINGE SUB-Q (20:20)
== END 2025-09-04 20:41 | disposition short-term general hospital (02) | DRG 175 ==
LOC: ANHED 01:56 → ANHIMU 05:14
PROVIDERS: Internal Medicine Pulmonary Disease; Nurse Practitioner; Admitting Provider General Practice; Emergency Provider Student in an Organized Health Care Education/Training Program; PCP Internal Medicine; Visit Provider Internal Medicine
DX: I26.92 Saddle embolus of pulmonary artery without acute cor pulmonale (principal); I50.31 Acute diastolic (congestive) heart failure; J96.01 Acute respiratory failure with hypoxia; I13.0 Hypertensive heart and chronic kidney disease with heart failure and stage 1 through stage 4 chronic kidney disease, or unspecified chronic kidney disease; I24.89 Other forms of acute ischemic heart disease; N18.30 Chronic kidney disease, stage 3 unspecified; E78.5 Hyperlipidemia, unspecified; R32 Unspecified urinary incontinence; R73.03 Prediabetes; Z20.822 Contact with and (suspected) exposure to COVID-19; Z85.3 Personal history of malignant neoplasm of breast; Z90.49 Acquired absence of other specified parts of digestive tract
CPT/HCPCS: 36415; 71046; 71275; 80048; 80053; 82948; 83036; 83605; 83880; 84145; 84484; 85025; 85055; 86140; 87040; 87637; 93005; 93970; 94640; 99285; A9270; C8929; J0696; J1650; J1815; J1938; Q9957; Q9967